=== PATIENT | female | born 1980 | race African-American/Black ===

== ENCOUNTER 2016-08-20 12:19 | Emergency (ER) | payer OTHER, MEDICAID ==
[~2016-08-20] VITALS: Ht 162.6 cm; Wt 50.0 kg
[~2016-08-20 12:19] MED LIST: GABA-531 PO; INSU100C6 SQ; LEVO50TA8 PO; METF500T3 PO; METO-298 PO; PREG75CA PO
[2016-08-20] MEDS ORDERED: SODIUM CHLORIDE 0.9% 1,000 ML IV ONE (13:37)
[2016-08-20 14:19] LABS: BASOPHILS % 0.7 % (0.0-2.0); EOSINOPHILS % 7.6 % (0.0-5.0); HEMATOCRIT. 37.2 % (36.0-48.0); HEMOGLOBIN. 12.2 g/dL (12.0-16.0); LYMPHOCYTES % 40.2 % (20.0-50.0); MEAN CORPUSCULAR HEMOGLOBIN 29.5 pg (28.0-32.0); MEAN CORPUSCULAR HGB CONC 32.9 g/dL (31.0-37.0); MEAN CORPUSCULAR VOLUME 89.7 fL (81.0-99.0); MEAN PLATELET VOLUME 9.6 fl (7.4-10.4); MONOCYTES % 8.7 % (2.0-8.0); NEUTROPHILS % 42.8 % (40.0-76.0); PLATELET 295 x1000/uL (130-400); RED BLOOD CELL COUNT 4.15 mill/uL (4.2-5.4); RED CELL DISTRIBUTION WIDTH 15.3 % (11.6-14.6); WHITE BLOOD COUNT 5.8 x1000/uL (4.5-11.0)
[2016-08-20 14:26] LABS: PROTHROMBIN TIME 10.7 sec
[2016-08-20 14:29] LABS: CHLORIDE 101 mEq/L (98-107); INDEX HEMOLYSI 1 (1-3); INDEX ICTERIC 1 (1-4); INDEX LIPEMIC 1 (1-3)
[2016-08-20 14:36] LABS: ALANINE AMINOTRANSFERASE 14 IU/L (13-61); ALBUMIN 3.2 g/dL (3.4-5.0); ANION GAP 13; CALCIUM 9.3 mg/dL (8.5-10.1); CARBON DIOXIDE 30 mEq/L (21-32); LIPASE 148 IU/L (73-393); UREA NITROGEN BLOOD 7 mg/dL (7-21); eGFR > 60 mL/min (>60)
[2016-08-20 14:54] LABS: CLARITY URINE CLOUDY (CLEAR); COLOR URINE YELLOW (YELLOW); GLUCOSE URINE 3+ (NEGATIVE); KETONES URINE TRACE (NEGATIVE); LEUKOCYTE ESTERASE URINE NEGATIVE (NEGATIVE); NITRITE URINE NEGATIVE (NEGATIVE); OCCULT BLOOD URINE NEGATIVE (NEGATIVE); PROTEIN URINE NEGATIVE (NEGATIVE); SPECIFIC GRAVITY URINE 1.034 (1.005-1.030); UROBILINOGEN URINE 0.2 E.U./dL (0.2-1.0)
[2016-08-20 15:10] LABS: BACTERIA URINE NONE SEEN; CALCIUM OXALATE CRYSTALS URINE 2+ /lpf; MUCUS URINE 1+ /lpf (< = 2+); RBC URINE 0-2 /hpf (0-2); SQUAMOUS EPITHELIAL CELL URINE FEW /lpf (RARE/1+); WBC URINE 0-2 /hpf (0-2)
[2016-08-20 15:13] VITALS: BP 122/89
[2016-08-20 15:19] LABS: *AMPHETAMINES SCREEN URINE NEGATIVE (NEGATIVE); *BARBITURATES SCREEN URINE NEGATIVE (NEGATIVE); *BENZODIAZEPINES SCREEN URINE NEGATIVE (NEGATIVE); *COCAINE SCREEN URINE NEGATIVE (NEGATIVE); CANNABINOID URINE SCREEN NEGATIVE (NEGATIVE); ECSTASY MDMA SCREEN URINE NEGATIVE (NEGATIVE); METHADONE URINE SCREEN NEGATIVE (NEGATIVE); OPIATES URINE SCREEN NEGATIVE (NEGATIVE); PHENCYCLIDINE URINE SCREEN NEGATIVE (NEGATIVE)
[2016-08-20] MEDS ORDERED: GABAPENTIN 300MG CAPSULE PO ONE (15:30)
[2016-08-20] MEDS ORDERED: KETOROLAC 30MG/ML VIAL IV ONE (15:30)
== END 2016-08-20 17:19 | disposition home or self-care (01) ==
LOC: ER 12:25
DX: E11.40 Type 2 diabetes mellitus with diabetic neuropathy, unspecified (principal); F31.9 Bipolar disorder, unspecified; E11.9 Type 2 diabetes mellitus without complications; E03.9 Hypothyroidism, unspecified; F17.210 Nicotine dependence, cigarettes, uncomplicated; Z88.5 Allergy status to narcotic agent; Z91.013 Allergy to seafood; Z79.82 Long term (current) use of aspirin; Z79.4 Long term (current) use of insulin; Z79.899 Other long term (current) drug therapy
CPT/HCPCS: 36415; 80053; 80305; 81001; 81025; 83690; 85025; 85610; 93005; 93970; 96361; 96374; 99285; J1885; J7030

== ENCOUNTER 2016-09-22 12:30 | Inpatient (IN) | payer OTHER, MEDICAID ==
[2016-09-22] VITALS (34 sets, daily range): BP systolic 97–125; BP diastolic 67–91
[~2016-09-22] VITALS: Ht 170.2 cm; Wt 49.4 kg
[2016-09-22] MEDS ORDERED: SODIUM CHLORIDE 0.9% 1,000 ML IV ONE ×3 (12:46→13:05)
[2016-09-22] MEDS ORDERED: INSULIN REGULAR (HUMULIN R) 300UNITS/3ML SUBCUT ONE (13:00)
[2016-09-22 13:09] LABS: EOSINOPHILS % 0.2 % (0.0-5.0); HEMATOCRIT. 44.1 % (36.0-48.0); HEMOGLOBIN. 14.2 g/dL (12.0-16.0); LYMPHOCYTES % 18.2 % (20.0-50.0); MEAN CORPUSCULAR HEMOGLOBIN 30.5 pg (28.0-32.0); MEAN CORPUSCULAR VOLUME 94.9 fL (81.0-99.0); MEAN PLATELET VOLUME 9.6 fl (7.4-10.4); MONOCYTES % 7.3 % (2.0-8.0); NEUTROPHILS % 73.3 % (40.0-76.0); PLATELET 414 x1000/uL (130-400); RED BLOOD CELL COUNT 4.65 mill/uL (4.2-5.4); RED CELL DISTRIBUTION WIDTH 15.2 % (11.6-14.6)
[2016-09-22 13:12] LABS: BG BASE EXCESS -9.9 mmol/L (-2.0-2.0); BG CARBOXYHEMOGLOBIN 0.5 % (0.5-1.5); BG DEOXYHEMOGLOBIN 2.7 % (0.0-5.0); BG FRACTION INSPIRED OXYGEN 21; BG HCO3 ACT 14.6 mmol/L (22.0-26.0); BG METHEMOGLOBIN 0.4 % (0.0-1.5); BG OXYGEN SATURATION 97.3 % (92.0-98.5); BG OXYHEMOGLOBIN 96.4 % (94.0-97.0); BG PCO2 28.7 mmHg (35.0-45.0); BG PH 7.324 (7.350-7.450); BG PO2 99.4 mmHg (75.0-100.0); BG SAMPLE SITE RIGHT BRACHIAL; BG TOTAL HEMOGLOBIN 13.6 g/dL (12.0-18.0); BG VENT MODE ROOM AIR
[2016-09-22 13:21] LABS: HCG SCREEN NEGATIVE
[2016-09-22 13:27] LABS: CARBON DIOXIDE 18 mEq/L (21-32); CHLORIDE 88 mEq/L (98-107); TROPONIN I < 0.02 ng/mL (0.00-0.04)
[2016-09-22 13:31] LABS: BETA HYDROXYBUTYRATE 6.9 mMol/L (0.0-0.3)
[2016-09-22] MEDS ORDERED: SODIUM CHLORIDE 0.9% 1,000 ML IV STA (13:44)
[2016-09-22 13:57] LABS: CLARITY URINE CLEAR (CLEAR); COLOR URINE YELLOW (YELLOW); GLUCOSE URINE 3+ (NEGATIVE); KETONES URINE 3+ (NEGATIVE); LEUKOCYTE ESTERASE URINE NEGATIVE (NEGATIVE); NITRITE URINE NEGATIVE (NEGATIVE); OCCULT BLOOD URINE NEGATIVE (NEGATIVE); PROTEIN URINE NEGATIVE (NEGATIVE); SPECIFIC GRAVITY URINE 1.034 (1.005-1.030); UROBILINOGEN URINE 0.2 E.U./dL (0.2-1.0)
[2016-09-22 14:04] LABS: CHLORIDE 96 mEq/L (98-107)
[2016-09-22 14:11] LABS: CARBON DIOXIDE 19 mEq/L (21-32)
[2016-09-22] MEDS ORDERED: TRAMADOL 50MG TABLET PO PRN (14:15)
[2016-09-22] MEDS ORDERED: NA PHOS,M-B/NA PHOS,DI-BA ENEMA 118ML PR PRN (14:15)
[2016-09-22] MEDS ORDERED: LORAZEPAM 2MG/ML CPJ IV PRN (14:15)
[2016-09-22] MEDS ORDERED: CLONIDINE 0.1MG TABLET PO PRN (14:15)
[2016-09-22] MEDS ORDERED: INSULIN REGULAR (DRIP) 100 UNITS in SODIUM CHLORIDE 0.9% 99 ML IV NR (14:15)
[2016-09-22] MEDS ORDERED: GUAIFENESIN 200MG/10ML SUGAR FREE UDC PO PRN (14:15)
[2016-09-22] MEDS ORDERED: IPRATROPIUM/ALBUTEROL 0.5-3(2.5)MG/3ML NEB INH PRN (14:15)
[2016-09-22] MEDS ORDERED: MAGNESIUM/ALUMINUM HYDROXIDE/SIMETHICONE 30ML UDC PO PRN (14:15)
[2016-09-22] MEDS ORDERED: NITROGLYCERIN 0.4MG TABLET SL SL PRN (14:15)
[2016-09-22] MEDS ORDERED: ONDANSETRON HCL 4MG/2ML VIAL IV PRN (14:15)
[2016-09-22] MEDS ORDERED: ACETAMINOPHEN 325MG TABLET PO PRN (14:15)
[2016-09-22] MEDS ORDERED: DOCUSATE SODIUM 100MG CAPSULE PO PRN (14:15)
[2016-09-22] MEDS ORDERED: KETOROLAC 15MG/ML VIAL IV PRN (14:15)
[2016-09-22] MEDS ORDERED: DIPHENHYDRAMINE 50MG/ML VIAL IV PRN (14:15)
[2016-09-22] MEDS ORDERED: INSULIN REGULAR (HUMULIN R) 300UNITS/3ML IV ONE (14:30)
[2016-09-22] MEDS ORDERED: DEXTROSE 50% WATER 50ML SYRINGE IV PRN ×2 (14:45)
[2016-09-22 14:55] LABS: PHOSPHORUS 2.6 mg/dL (2.5-4.9)
[2016-09-22] MEDS ORDERED: SODIUM CHLORIDE 0.9% 1,000 ML IV SCH (16:00)
[2016-09-22] MEDS ORDERED: INSULIN REGULAR (DRIP) 100 UNITS in SODIUM CHLORIDE 0.9% 100 ML IV SCH (16:00)
[2016-09-22] MEDS: BLOOD SUGAR DIAGNOSTIC STRIP TEST SCH ×9 (16:07→23:45)
[2016-09-22] MEDS: ENOXAPARIN 40MG/0.4ML SYR SUBCUT SCH (16:27)
[2016-09-22 16:52] LABS: CARBON DIOXIDE 21 mEq/L (21-32); CHLORIDE 102 mEq/L (98-107); PHOSPHORUS 1.9 mg/dL (2.5-4.9)
[2016-09-22] MEDS ORDERED: CEFTRIAXONE 1 G PREMIX 50 ML IV SCH (17:00)
[2016-09-22 18:49] LABS: CARBON DIOXIDE 23 mEq/L (21-32); CHLORIDE 106 mEq/L (98-107); PHOSPHORUS 1.5 mg/dL (2.5-4.9)
[2016-09-22] MEDS ORDERED: ZOLPIDEM TARTRATE 5MG TABLET PO PRN (21:00)
[2016-09-22] MEDS: GABAPENTIN 300MG CAPSULE PO SCH (21:06)
[2016-09-22] MEDS: METOPROLOL TARTRATE 25MG TABLET PO SCH (22:38)
[2016-09-22] MEDS: DEXT 5%/0.9% NACL KCL 20MEQ/L 1,000 ML IV SCH (22:39)
[2016-09-22] MEDS ORDERED: POTASSIUM CHLORIDE INJ 20 MEQ in DEXT 5%/0.9% NACL 1,000 ML IV SCH (23:00)
[2016-09-23] VITALS (32 sets, daily range): BP systolic 98–131; BP diastolic 70–101
[2016-09-23] MEDS: BLOOD SUGAR DIAGNOSTIC STRIP TEST SCH ×11 (00:58→17:45)
[2016-09-23] MEDS: GABAPENTIN 300MG CAPSULE PO SCH ×2 (05:48→13:00)
[2016-09-23] MEDS: DEXT 5%/0.9% NACL KCL 20MEQ/L 1,000 ML IV SCH (05:48)
[2016-09-23 05:56] LABS: BASOPHILS % 0.6 % (0.0-2.0); EOSINOPHILS % 3.3 % (0.0-5.0); HEMATOCRIT. 34.8 % (36.0-48.0); HEMOGLOBIN. 11.7 g/dL (12.0-16.0); LYMPHOCYTES % 29.7 % (20.0-50.0); MEAN CORPUSCULAR HEMOGLOBIN 30.1 pg (28.0-32.0); MEAN CORPUSCULAR VOLUME 90.1 fL (81.0-99.0); MEAN PLATELET VOLUME 8.5 fl (7.4-10.4); MONOCYTES % 11.4 % (2.0-8.0); PLATELET 333 x1000/uL (130-400); RED BLOOD CELL COUNT 3.87 mill/uL (4.2-5.4)
[2016-09-23 06:41] LABS: CARBON DIOXIDE 25 mEq/L (21-32); CHLORIDE 109 mEq/L (98-107); PHOSPHORUS 1.5 mg/dL (2.5-4.9)
[2016-09-23] MEDS: POTASSIUM PHOS,M-BASIC-D-BASIC 30 MMOL in SODIUM CHLORIDE 0.9% 500 ML IV NR ×2 (07:46→08:29)
[2016-09-23] MEDS ORDERED: LEVOTHYROXINE SODIUM 50MCG TABLET PO SCH (07:50)
[2016-09-23] MEDS: METOPROLOL TARTRATE 25MG TABLET PO SCH (08:02)
[2016-09-23] MEDS ORDERED: PANTOPRAZOLE SODIUM 40 MG/VIAL IV SCH (09:00)
[2016-09-23] MEDS ORDERED: DEXTROSE 50% WATER 50ML SYRINGE IV PRN (09:30)
[2016-09-23] MEDS ORDERED: INSULIN DETEMIR UD 100 UNITS/ML SYR SUBCUT SCH (10:00)
[2016-09-23] MEDS: INSULIN LISPRO 100 UNITS/ML SUBCUT SCH ×5 (10:36→17:51)
[2016-09-23 11:34] LABS: *AMPHETAMINES SCREEN URINE NEGATIVE (NEGATIVE); *BARBITURATES SCREEN URINE NEGATIVE (NEGATIVE); *BENZODIAZEPINES SCREEN URINE NEGATIVE (NEGATIVE); *COCAINE SCREEN URINE NEGATIVE (NEGATIVE); CANNABINOID URINE SCREEN NEGATIVE (NEGATIVE); METHADONE URINE SCREEN NEGATIVE (NEGATIVE); OPIATES URINE SCREEN NEGATIVE (NEGATIVE); PHENCYCLIDINE URINE SCREEN NEGATIVE (NEGATIVE)
[2016-09-23] MEDS: ENOXAPARIN 40MG/0.4ML SYR SUBCUT SCH (16:15)
[2016-09-23] MEDS ORDERED: CEFTRIAXONE 1 G PREMIX 50 ML IV SCH (17:00)
== END 2016-09-23 19:00 | disposition short-term general hospital (02) | DRG 638 ==
LOC: ER 12:37 → CVICU 14:08 → UNDOADMIN 14:08 → SUPCPDRO 14:55
PROVIDERS: ADMIT Internal Medicine; ATTEND Internal Medicine
DX: E13.10 Other specified diabetes mellitus with ketoacidosis without coma (principal); E87.1 Hypo-osmolality and hyponatremia; N39.0 Urinary tract infection, site not specified; E03.9 Hypothyroidism, unspecified; E83.39 Other disorders of phosphorus metabolism; E87.5 Hyperkalemia; E13.42 Other specified diabetes mellitus with diabetic polyneuropathy; F31.9 Bipolar disorder, unspecified; I10 Essential (primary) hypertension; Z79.4 Long term (current) use of insulin; Z82.49 Family history of ischemic heart disease and other diseases of the circulatory system; Z91.11 Patient's noncompliance with dietary regimen; Z91.14 Patient's other noncompliance with medication regimen; Z88.5 Allergy status to narcotic agent; Z91.013 Allergy to seafood; Z79.899 Other long term (current) drug therapy
CPT/HCPCS: 36415; 36600; 71010; 80048; 80053; 80305; 81001; 82010; 82375; 82805; 82962; 83036; 83735; 84100; 84443; 84484; 84703; 85025; 93005; 96372; 99291; C9113; J0696; J1650; J1815; J2060; J3480; J3490; J7030; J7040; J7042; J7050

== ENCOUNTER 2016-10-15 19:57 | Emergency (ER) | payer OTHER, MEDICAID ==
[~2016-10-15] VITALS: Ht 170.2 cm; Wt 56.0 kg
[2016-10-15] MEDS ORDERED: SODIUM CHLORIDE 0.9% 1,000 ML IV ONE (22:21)
[2016-10-15] MEDS ORDERED: KETOROLAC 30MG/ML VIAL IV STA (22:21)
[2016-10-15 22:48] LABS: EOSINOPHILS % 4.5 % (0.0-5.0); HEMATOCRIT. 36.3 % (36.0-48.0); HEMOGLOBIN. 11.9 g/dL (12.0-16.0); LYMPHOCYTES % 42.5 % (20.0-50.0); MEAN CORPUSCULAR HEMOGLOBIN 29.7 pg (28.0-32.0); MEAN CORPUSCULAR VOLUME 90.5 fL (81.0-99.0); MEAN PLATELET VOLUME 8.9 fl (7.4-10.4); MONOCYTES % 9.3 % (2.0-8.0); NEUTROPHILS % 42.7 % (40.0-76.0); PLATELET 350 x1000/uL (130-400); RED BLOOD CELL COUNT 4.01 mill/uL (4.2-5.4); RED CELL DISTRIBUTION WIDTH 15.5 % (11.6-14.6)
[2016-10-15 22:54] LABS: CHLORIDE 100 mEq/L (98-107); PROTHROMBIN TIME 10.4 sec
[2016-10-15 23:02] LABS: CARBON DIOXIDE 31 mEq/L (21-32); TROPONIN I < 0.02 ng/mL (0.00-0.04)
[2016-10-16 00:09] LABS: CLARITY URINE CLEAR (CLEAR); COLOR URINE YELLOW (YELLOW); GLUCOSE URINE 3+ (NEGATIVE); KETONES URINE TRACE (NEGATIVE); LEUKOCYTE ESTERASE URINE NEGATIVE (NEGATIVE); NITRITE URINE NEGATIVE (NEGATIVE); OCCULT BLOOD URINE NEGATIVE (NEGATIVE); PROTEIN URINE NEGATIVE (NEGATIVE); SPECIFIC GRAVITY URINE 1.034 (1.005-1.030)
[2016-10-16 02:00] VITALS: BP 115/73
== END 2016-10-16 02:14 | disposition home or self-care (01) ==
LOC: ER 20:17
DX: R07.89 Other chest pain (principal); E11.65 Type 2 diabetes mellitus with hyperglycemia; F32.9 Major depressive disorder, single episode, unspecified; E03.9 Hypothyroidism, unspecified; F17.200 Nicotine dependence, unspecified, uncomplicated; Z88.5 Allergy status to narcotic agent; Z91.013 Allergy to seafood
CPT/HCPCS: 36415; 71010; 80053; 81001; 81025; 84484; 85025; 85610; 93005; 96361; 96374; 99285; J1885; J7030; 81003

== ENCOUNTER 2017-01-08 10:25 | Inpatient (IN) | payer OTHER, MEDICAID ==
[2017-01-08] VITALS (16 sets, daily range): BP systolic 82–135; BP diastolic 53–82
[~2017-01-08] VITALS: Ht 170.2 cm; Wt 52.2 kg
[2017-01-08 11:54] LABS: BASOPHILS % 0.8 % (0.0-2.0); HEMATOCRIT. 44.2 % (36.0-48.0); LYMPHOCYTES % 27.7 % (20.0-50.0); MEAN CORPUSCULAR HEMOGLOBIN 29.2 pg (28.0-32.0); MEAN PLATELET VOLUME 10.5 fl (7.4-10.4); MONOCYTES % 5.7 % (2.0-8.0); NEUTROPHILS % 64.8 % (40.0-76.0); PLATELET 324 x1000/uL (130-400); RED CELL DISTRIBUTION WIDTH 16.4 % (11.6-14.6)
[2017-01-08 12:00] LABS: CHLORIDE 97 mEq/L (98-107)
[2017-01-08 12:05] LABS: CARBON DIOXIDE 14 mEq/L (21-32)
[2017-01-08 12:16] LABS: CLARITY URINE CLEAR (CLEAR); COLOR URINE YELLOW (YELLOW); GLUCOSE URINE 3+ (NEGATIVE); KETONES URINE 4+ (NEGATIVE); LEUKOCYTE ESTERASE URINE NEGATIVE (NEGATIVE); NITRITE URINE NEGATIVE (NEGATIVE); OCCULT BLOOD URINE NEGATIVE (NEGATIVE); PH URINE 5.5 (4.5-8.0); PROTEIN URINE 1+ (NEGATIVE); SPECIFIC GRAVITY URINE 1.029 (1.005-1.030); UROBILINOGEN URINE 0.2 E.U./dL (0.2-1.0)
[2017-01-08] MEDS ORDERED: ASPIRIN 81MG TABLET PO STA (13:01)
[2017-01-08] MEDS ORDERED: SODIUM CHLORIDE 0.9% 1,000 ML IV ONE ×2 (13:01)
[2017-01-08] MEDS ORDERED: NITROGLYCERIN 0.4MG TABLET SL SL PRN (13:15)
[2017-01-08] MEDS ORDERED: INSULIN REGULAR (HUMULIN R) UD 100 UNITS/ML SYR SUBCUT ONE (13:15)
[2017-01-08] MEDS ORDERED: INSULIN REGULAR (HUMULIN R) 300UNITS/3ML SUBCUT SCH (14:11)
[2017-01-08 15:03] LABS: HCG SCREEN NEGATIVE
[2017-01-08 15:06] LABS: D-DIMER < 0.19 mg/L FEU (<0.50); PARTIAL THROMBOPLASTIN TIME 25.7 sec (23.4-31.0); PROTHROMBIN TIME 10.2 sec (9.4-11.6)
[2017-01-08 15:11] LABS: CARBON DIOXIDE 14 mEq/L (21-32); CHLORIDE 99 mEq/L (98-107); TROPONIN I < 0.02 ng/mL (0.00-0.04)
[2017-01-08 15:12] LABS: BETA HYDROXYBUTYRATE 8.4 mMol/L (0.0-0.3)
[2017-01-08 15:13] LABS: *AMPHETAMINES SCREEN URINE NEGATIVE (NEGATIVE); *BARBITURATES SCREEN URINE NEGATIVE (NEGATIVE); *BENZODIAZEPINES SCREEN URINE NEGATIVE (NEGATIVE); *COCAINE SCREEN URINE NEGATIVE (NEGATIVE); CANNABINOID URINE SCREEN NEGATIVE (NEGATIVE); METHADONE URINE SCREEN NEGATIVE (NEGATIVE); OPIATES URINE SCREEN NEGATIVE (NEGATIVE); PHENCYCLIDINE URINE SCREEN NEGATIVE (NEGATIVE)
[2017-01-08] MEDS ORDERED: PIPERACILLIN/TAZ 3.375G PREMIX 50 ML IV ONE (15:30)
[2017-01-08] MEDS ORDERED: INSULIN REGULAR (HUMULIN R) UD 100 UNITS/ML SYR IV ONE (15:30)
[2017-01-08] MEDS ORDERED: FLUCONAZOLE 100MG TABLET PO ONE (15:30)
[2017-01-08] MEDS ORDERED: INSULIN REGULAR (DRIP) 100 UNITS in SODIUM CHLORIDE 0.9% 100 ML IV ONE (15:30)
[2017-01-08] MEDS ORDERED: HYDROMORPHONE HCL/PF 2MG/ML CPJ IV PRN (15:45)
[2017-01-08] MEDS ORDERED: CLONIDINE 0.1MG TABLET PO PRN (15:45)
[2017-01-08] MEDS ORDERED: ACETAMINOPHEN 325MG TABLET PO PRN (15:45)
[2017-01-08] MEDS ORDERED: ONDANSETRON HCL 4MG/2ML VIAL IV PRN (15:45)
[2017-01-08] MEDS ORDERED: DIPHENHYDRAMINE 50MG/ML VIAL IV PRN (15:45)
[2017-01-08] MEDS ORDERED: INSULIN REGULAR (DRIP) 100 UNITS in SODIUM CHLORIDE 0.9% 100 ML IV SCH ×2 (15:45→17:11)
[2017-01-08] MEDS ORDERED: INSULIN REGULAR (DRIP) 100 UNITS in SODIUM CHLORIDE 0.9% 99 ML IV PRN (15:45)
[2017-01-08] MEDS ORDERED: FLUCONAZOLE 150MG TABLET PO NR (16:00)
[2017-01-08] MEDS: BLOOD SUGAR DIAGNOSTIC STRIP TEST SCH ×7 (17:15→23:22)
[2017-01-08] MEDS ORDERED: SODIUM CHLORIDE 0.9% 1,000 ML IV SCH (17:15)
[2017-01-08] MEDS ORDERED: DEXTROSE 50% WATER 50ML SYRINGE IV PRN ×2 (17:15)
[2017-01-08] MEDS ORDERED: LEVO75TA7 PO (17:24)
[2017-01-08] MEDS ORDERED: HUMALOG SQ (17:24)
[2017-01-08] MEDS ORDERED: LURA60TA PO (17:24)
[2017-01-08] MEDS ORDERED: NORT75CA PO (17:24)
[2017-01-08] MEDS ORDERED: METO50TA5 PO (17:24)
[2017-01-08] MEDS ORDERED: METF10002 PO (17:24)
[2017-01-08] MEDS ORDERED: IBUP-2030 PO (17:24)
[2017-01-08] MEDS ORDERED: IBUPROFEN 800MG TABLET PO PRN (17:30)
[2017-01-08] MEDS: DEXT 5%/0.45% NACL 1000ML 1,000 ML IV SCH (18:18)
[2017-01-08] MEDS: METOPROLOL TARTRATE 50MG TABLET PO SCH (18:20)
[2017-01-08] MEDS ORDERED: LORAZEPAM 2MG/ML CPJ IV PRN (19:00)
[2017-01-08] MEDS ORDERED: LEVOFLOXACIN 500MG PREMIX 100 ML IV SCH (20:00)
[2017-01-08] MEDS: NORTRIPTYLINE HCL 25MG CAPSULE PO SCH (21:29)
[2017-01-08 22:11] LABS: CARBON DIOXIDE 24 mEq/L (21-32); CHLORIDE 108 mEq/L (98-107)
[2017-01-09] VITALS (43 sets, daily range): BP systolic 88–132; BP diastolic 62–95
[2017-01-09] MEDS: BLOOD SUGAR DIAGNOSTIC STRIP TEST SCH ×11 (00:28→20:43)
[2017-01-09] MEDS: DEXT 5%/0.45% NACL 1000ML 1,000 ML IV SCH ×2 (02:49→12:58)
[2017-01-09 05:54] LABS: BASOPHILS % 0.5 % (0.0-2.0); EOSINOPHILS % 3.3 % (0.0-5.0); HEMATOCRIT. 34.9 % (36.0-48.0); HEMOGLOBIN. 11.3 g/dL (12.0-16.0); MEAN CORPUSCULAR HEMOGLOBIN 28.9 pg (28.0-32.0); MEAN CORPUSCULAR VOLUME 88.6 fL (81.0-99.0); MEAN PLATELET VOLUME 9.7 fl (7.4-10.4); MONOCYTES % 9.3 % (2.0-8.0); NEUTROPHILS % 42.9 % (40.0-76.0); PLATELET 268 x1000/uL (130-400); RED BLOOD CELL COUNT 3.93 mill/uL (4.2-5.4)
[2017-01-09 06:30] LABS: CARBON DIOXIDE 23 mEq/L (21-32); CHLORIDE 107 mEq/L (98-107); T4 FREE 1.23 ng/dL (0.76-1.46)
[2017-01-09] MEDS: METOPROLOL TARTRATE 50MG TABLET PO SCH ×2 (08:46→21:08)
[2017-01-09] MEDS: LEVOTHYROXINE SODIUM 75MCG TABLET PO SCH (08:46)
[2017-01-09] MEDS ORDERED: LURASIDONE HCL 60 MG PO SCH (09:00)
[2017-01-09] MEDS ORDERED: INSULIN DETEMIR UD 100 UNITS/ML SYR SUBCUT SCH (11:00)
[2017-01-09] MEDS ORDERED: DEXTROSE 50% WATER 50ML SYRINGE IV PRN (12:15)
[2017-01-09] MEDS: INSULIN LISPRO 100 UNITS/ML SUBCUT SCH ×3 (12:56→21:09)
[2017-01-09] MEDS ORDERED: NORTRIPTYLINE HCL 75 MG PO SCH (17:00)
[2017-01-09] MEDS: NORTRIPTYLINE HCL 25MG CAPSULE PO SCH (21:08)
[2017-01-09] MEDS: LEVOFLOXACIN 500MG PREMIX 100 ML IV SCH (21:10)
[2017-01-10] VITALS (9 sets, daily range): BP systolic 97–127; BP diastolic 65–90
[2017-01-10] MEDS: BLOOD SUGAR DIAGNOSTIC STRIP TEST SCH ×4 (06:43→21:00)
[2017-01-10] MEDS: LEVOTHYROXINE SODIUM 75MCG TABLET PO SCH (06:43)
[2017-01-10] MEDS: INSULIN LISPRO 100 UNITS/ML SUBCUT SCH ×4 (06:54→22:06)
[2017-01-10] MEDS: METOPROLOL TARTRATE 50MG TABLET PO SCH ×2 (10:07→21:54)
[2017-01-10] MEDS ORDERED: NON FORMULARY PATIENT HOME MED EA SUBCUT SCH (13:30)
[2017-01-10] MEDS ORDERED: INSULIN DETEMIR UD 100 UNITS/ML SYR SUBCUT SCH (15:30)
[2017-01-10] MEDS: LEVOFLOXACIN 500MG PREMIX 100 ML IV SCH (20:00)
[2017-01-10] MEDS: NORTRIPTYLINE HCL 25MG CAPSULE PO SCH (21:53)
== END 2017-01-10 23:25 | disposition short-term general hospital (02) | DRG 638 ==
LOC: ER 10:25 → CVICU 15:23 → EDBEDREQ 15:26 → EDBEDREQSVC 15:28 → EDBEDREQTM 15:28 → EDBEDREQ 15:28 → ENRESERV 15:30 → 6EST 01-10 02:06
PROVIDERS: ADMIT Hospitalist; ATTEND Hospitalist
DX: E13.10 Other specified diabetes mellitus with ketoacidosis without coma (principal); N39.0 Urinary tract infection, site not specified; I10 Essential (primary) hypertension; B37.9 Candidiasis, unspecified; E03.9 Hypothyroidism, unspecified; F31.9 Bipolar disorder, unspecified; Z87.891 Personal history of nicotine dependence; Z88.6 Allergy status to analgesic agent; Z91.013 Allergy to seafood
CPT/HCPCS: 36415; 71010; 80048; 80053; 80305; 81001; 82010; 82962; 83690; 83880; 84439; 84443; 84484; 84703; 85025; 85379; 85610; 85730; 87086; 93005; 93970; 96361; 96365; 96372; 99291; J1815; J1956; J2543; J3490; J7030; J7050

== ENCOUNTER 2017-02-06 22:51 | Inpatient (IN) | payer OTHER, MEDICAID ==
[~2017-02-06] VITALS: Ht 165.1 cm; Wt 52.6 kg
[~2017-02-06 22:51] MED LIST changes: -GABA-531 PO; +HUMALOG SQ; +IBUP-2030 PO; -INSU100C6 SQ; -LEVO50TA8 PO; +LEVO75TA7 PO; +LURA60TA PO; +METF10002 PO; -METF500T3 PO; -METO-298 PO; +METO50TA5 PO; +NORT75CA PO; -PREG75CA PO
[2017-02-07] VITALS (19 sets, daily range): BP systolic 92–143; BP diastolic 56–86
[2017-02-07] MEDS ORDERED: SODIUM CHLORIDE 0.9% 1,000 ML IV ONE (06:22)
[2017-02-07 06:48] LABS: BASOPHILS % 0.5 % (0.0-2.0); EOSINOPHILS % 0.1 % (0.0-5.0); HEMOGLOBIN. 13.1 g/dL (12.0-16.0); LYMPHOCYTES % 15.4 % (20.0-50.0); MEAN CORPUSCULAR HEMOGLOBIN 29.3 pg (28.0-32.0); MEAN CORPUSCULAR VOLUME 98.8 fL (81.0-99.0); MEAN PLATELET VOLUME 10.9 fl (7.4-10.4); MONOCYTES % 7.4 % (2.0-8.0); NEUTROPHILS % 76.6 % (40.0-76.0); PLATELET 418 x1000/uL (130-400); RED BLOOD CELL COUNT 4.45 mill/uL (4.2-5.4); RED CELL DISTRIBUTION WIDTH 16.1 % (11.6-14.6)
[2017-02-07 07:06] LABS: CHLORIDE 86 mEq/L (98-107)
[2017-02-07 07:08] LABS: BG BASE EXCESS -20.2 mmol/L (-2.0-2.0); BG CARBOXYHEMOGLOBIN 0.1 % (0.5-1.5); BG DEOXYHEMOGLOBIN 2.1 % (0.0-5.0); BG FRACTION INSPIRED OXYGEN 21; BG HCO3 ACT 5.6 mmol/L (22.0-26.0); BG METHEMOGLOBIN 0.5 % (0.0-1.5); BG OXYGEN SATURATION 97.9 % (92.0-98.5); BG OXYHEMOGLOBIN 97.3 % (94.0-97.0); BG PH 7.191 (7.350-7.450); BG PO2 133.3 mmHg (75.0-100.0); BG SAMPLE SITE RIGHT BRACHIAL; BG TOTAL HEMOGLOBIN 12.8 g/dL (12.0-18.0); BG VENT MODE ROOM AIR
[2017-02-07 07:13] LABS: CARBON DIOXIDE 9 mEq/L (21-32)
[2017-02-07 07:27] LABS: BETA HYDROXYBUTYRATE 1.7 mMol/L (0.0-0.3)
[2017-02-07] MEDS ORDERED: INSULIN REGULAR (HUMULIN R) 300UNITS/3ML IV ONE (07:30)
[2017-02-07] MEDS ORDERED: INSULIN REGULAR (DRIP) 100 UNITS in SODIUM CHLORIDE 0.9% 99 ML IV SCH ×2 (07:30→08:30)
[2017-02-07 16:12] LABS: CARBON DIOXIDE 13 mEq/L (21-32); CHLORIDE 107 mEq/L (98-107)
[2017-02-07] MEDS ORDERED: MORPHINE SULFATE 2 MG/ML CPJ (NOT FOR IM USE) IV PRN (17:45)
[2017-02-07] MEDS ORDERED: ONDANSETRON HCL 4MG/2ML VIAL IV PRN (17:45)
[2017-02-07] MEDS: METOPROLOL TARTRATE 50MG TABLET PO SCH ×2 (17:45→22:17)
[2017-02-07] MEDS: PANTOPRAZOLE SODIUM 40 MG/VIAL IV SCH (17:45)
[2017-02-07] MEDS: SODIUM CHLORIDE 0.9% 1,000 ML IV SCH (17:45)
[2017-02-07] MEDS ORDERED: DEXTROSE 50% WATER 50ML SYRINGE IV PRN ×2 (17:45)
[2017-02-07] MEDS: BLOOD SUGAR DIAGNOSTIC STRIP TEST SCH ×7 (17:56→23:45)
[2017-02-07] MEDS ORDERED: NORTRIPTYLINE HCL 25MG CAPSULE PO SCH ×2 (18:00)
[2017-02-07] MEDS ORDERED: NON FORMULARY PATIENT HOME MED EA XX SCH ×2 (18:00)
[2017-02-07] MEDS ORDERED: INSULIN REGULAR (DRIP) 100 UNITS in SODIUM CHLORIDE 0.9% 100 ML IV SCH (18:30)
[2017-02-07] MEDS ORDERED: INFLUENZA VIRUS VACCINE 0.5ML SYR IM ONE (19:00)
[2017-02-07] MEDS: DEXT 5%/0.9% NACL 1,000 ML IV SCH (22:00)
[2017-02-08] VITALS (28 sets, daily range): BP systolic 85–120; BP diastolic 45–85
[2017-02-08] MEDS: BLOOD SUGAR DIAGNOSTIC STRIP TEST SCH ×13 (00:45→20:27)
[2017-02-08 01:51] LABS: CARBON DIOXIDE 21 mEq/L (21-32); CHLORIDE 111 mEq/L (98-107)
[2017-02-08] MEDS: SODIUM CHLORIDE 0.9% 1,000 ML IV SCH (03:45)
[2017-02-08 06:21] LABS: CHLORIDE 109 mEq/L (98-107)
[2017-02-08] MEDS: DEXT 5%/0.9% NACL 1,000 ML IV SCH (06:25)
[2017-02-08 06:27] LABS: CARBON DIOXIDE 21 mEq/L (21-32)
[2017-02-08 07:43] LABS: PHOSPHORUS 1.4 mg/dL (2.5-4.9)
[2017-02-08] MEDS: PANTOPRAZOLE SODIUM 40 MG/VIAL IV SCH (07:59)
[2017-02-08] MEDS: LEVOTHYROXINE SODIUM 75MCG TABLET PO SCH (08:00)
[2017-02-08] MEDS: METOPROLOL TARTRATE 50MG TABLET PO SCH ×2 (08:26→21:15)
[2017-02-08] MEDS ORDERED: DEXTROSE 50% WATER 50ML SYRINGE IV PRN (10:15)
[2017-02-08] MEDS: POTASSIUM-SODIUM PHOSPHATE POWDER PACKET PO SCH ×4 (11:03→21:15)
[2017-02-08] MEDS: INSULIN DETEMIR UD 100 UNITS/ML SYR SUBCUT SCH (11:04)
[2017-02-08] MEDS: INSULIN LISPRO 100 UNITS/ML SUBCUT SCH ×3 (13:10→21:20)
[2017-02-08] MEDS ORDERED: MAGNESIUM/ALUMINUM HYDROXIDE/SIMETHICONE 30ML UDC PO PRN (14:30)
[2017-02-08] MEDS: NORTRIPTYLINE HCL 25MG CAPSULE PO SCH (17:43)
[2017-02-09] VITALS (7 sets, daily range): BP systolic 108–126; BP diastolic 68–88
[2017-02-09] MEDS: BLOOD SUGAR DIAGNOSTIC STRIP TEST SCH ×3 (05:44→17:03)
[2017-02-09] MEDS: LEVOTHYROXINE SODIUM 75MCG TABLET PO SCH (05:58)
[2017-02-09] MEDS: INSULIN LISPRO 100 UNITS/ML SUBCUT SCH ×3 (06:04→17:03)
[2017-02-09 08:08] LABS: BASOPHILS % 0.3 % (0.0-2.0); EOSINOPHILS % 2.4 % (0.0-5.0); HEMATOCRIT. 34.5 % (36.0-48.0); HEMOGLOBIN. 11.4 g/dL (12.0-16.0); LYMPHOCYTES % 22.8 % (20.0-50.0); MEAN CORPUSCULAR HEMOGLOBIN 30.2 pg (28.0-32.0); MEAN CORPUSCULAR VOLUME 91.4 fL (81.0-99.0); MEAN PLATELET VOLUME 9.7 fl (7.4-10.4); MONOCYTES % 10.5 % (2.0-8.0); PLATELET 257 x1000/uL (130-400); RED BLOOD CELL COUNT 3.77 mill/uL (4.2-5.4); RED CELL DISTRIBUTION WIDTH 16.4 % (11.6-14.6)
[2017-02-09 09:14] LABS: CARBON DIOXIDE 22 mEq/L (21-32); CHLORIDE 103 mEq/L (98-107)
[2017-02-09] MEDS: PANTOPRAZOLE SODIUM 40 MG/VIAL IV SCH (09:14)
[2017-02-09] MEDS: METOPROLOL TARTRATE 50MG TABLET PO SCH (09:14)
[2017-02-09] MEDS: POTASSIUM-SODIUM PHOSPHATE POWDER PACKET PO SCH ×3 (09:14→17:00)
[2017-02-09] MEDS: INSULIN DETEMIR UD 100 UNITS/ML SYR SUBCUT SCH (09:15)
[2017-02-09] MEDS ORDERED: INSULIN DETEMIR UD 100 UNITS/ML SYR SUBCUT SCH (11:00)
[2017-02-09] MEDS ORDERED: INSULIN DETEMIR UD 100 UNITS/ML SYR SUBCUT NR (12:00)
[2017-02-09] MEDS: NORTRIPTYLINE HCL 25MG CAPSULE PO SCH (17:01)
[2017-02-10] MEDS ORDERED: FAMOTIDINE 20MG TABLET PO SCH (09:00)
[2017-02-10] MEDS ORDERED: INSULIN DETEMIR UD 100 UNITS/ML SYR SUBCUT SCH (10:00)
== END 2017-02-09 20:40 | disposition short-term general hospital (02) | DRG 638 ==
LOC: ER 22:55 → CVICU 02-07 07:44 → EDBEDREQ 02-07 07:46 → ENRESERV 02-07 15:23 → CANBEDREQ 02-07 16:26 → 8WST 02-08 16:28
PROVIDERS: ADMIT Hospitalist; ATTEND Hospitalist
DX: E11.10 Type 2 diabetes mellitus with ketoacidosis without coma (principal); E87.1 Hypo-osmolality and hyponatremia; E87.5 Hyperkalemia; D72.829 Elevated white blood cell count, unspecified; E03.9 Hypothyroidism, unspecified; F17.200 Nicotine dependence, unspecified, uncomplicated; F31.9 Bipolar disorder, unspecified; Z79.84 Long term (current) use of oral hypoglycemic drugs; Z79.899 Other long term (current) drug therapy; Z88.5 Allergy status to narcotic agent; Z91.013 Allergy to seafood
CPT/HCPCS: 36415; 36600; 71010; 80048; 80053; 82010; 82375; 82805; 82962; 83690; 83735; 84100; 85025; 87086; 93005; 96361; 96365; 96376; 99291; C9113; J1815; J2405; J7030; J7042; J7050

== ENCOUNTER 2017-02-12 12:24 | Inpatient (IN) | payer OTHER, MEDICAID ==
[2017-02-12] VITALS (14 sets, daily range): BP systolic 92–121; BP diastolic 30–69
[~2017-02-12] VITALS: Ht 170.2 cm; Wt 57.9 kg
[2017-02-12] MEDS ORDERED: SODIUM CHLORIDE 0.9% 1000ML BAG (SEPSIS BOLUS) IV ONE (12:30)
[2017-02-12] MEDS ORDERED: SODIUM CHLORIDE 0.9% 1,000 ML IV ONE (12:59)
[2017-02-12 13:09] LABS: BG BASE EXCESS -11.1 mmol/L (-2.0-2.0); BG CARBOXYHEMOGLOBIN 1.2 % (0.5-1.5); BG DEOXYHEMOGLOBIN 3.1 % (0.0-5.0); BG HCO3 ACT 13.9 mmol/L (22.0-26.0); BG METHEMOGLOBIN 0.4 % (0.0-1.5); BG OXYGEN SATURATION 96.8 % (92.0-98.5); BG OXYHEMOGLOBIN 95.3 % (94.0-97.0); BG PCO2 28.5 mmHg (35.0-45.0); BG PH 7.305 (7.350-7.450); BG PO2 93.5 mmHg (75.0-100.0); BG SAMPLE SITE RIGHT RADIAL; BG TOTAL HEMOGLOBIN 11.9 g/dL (12.0-18.0); BG VENT MODE ROOM AIR
[2017-02-12] MEDS ORDERED: INSULIN REGULAR (DRIP) 100 UNITS in SODIUM CHLORIDE 0.9% 100 ML IV ONE ×4 (13:30)
[2017-02-12 13:57] LABS: BASOPHILS % 0.5 % (0.0-2.0); EOSINOPHILS % 0.9 % (0.0-5.0); HEMATOCRIT. 34.2 % (36.0-48.0); HEMOGLOBIN. 10.7 g/dL (12.0-16.0); LYMPHOCYTES % 18.9 % (20.0-50.0); MEAN CORPUSCULAR HEMOGLOBIN 29.8 pg (28.0-32.0); MEAN CORPUSCULAR VOLUME 94.9 fL (81.0-99.0); MEAN PLATELET VOLUME 10.3 fl (7.4-10.4); MONOCYTES % 7.6 % (2.0-8.0); NEUTROPHILS % 72.1 % (40.0-76.0); PLATELET 275 x1000/uL (130-400); PROTHROMBIN TIME 10.1 sec (9.4-11.6); RED BLOOD CELL COUNT 3.61 mill/uL (4.2-5.4); RED CELL DISTRIBUTION WIDTH 16.5 % (11.6-14.6)
[2017-02-12 14:02] LABS: CARBON DIOXIDE 16 mEq/L (21-32); CHLORIDE 96 mEq/L (98-107)
[2017-02-12 14:07] LABS: PHOSPHORUS 3.7 mg/dL (2.5-4.9)
[2017-02-12 14:10] LABS: HCG SCREEN NEGATIVE; TROPONIN I < 0.02 ng/mL (0.00-0.04)
[2017-02-12 14:18] LABS: BETA HYDROXYBUTYRATE 8.7 mMol/L (0.0-0.3)
[2017-02-12 14:42] LABS: CLARITY URINE CLEAR (CLEAR); COLOR URINE YELLOW (YELLOW); GLUCOSE URINE 3+ (NEGATIVE); KETONES URINE 4+ (NEGATIVE); LEUKOCYTE ESTERASE URINE NEGATIVE (NEGATIVE); NITRITE URINE NEGATIVE (NEGATIVE); OCCULT BLOOD URINE NEGATIVE (NEGATIVE); PROTEIN URINE NEGATIVE (NEGATIVE); SPECIFIC GRAVITY URINE 1.029 (1.005-1.030); UROBILINOGEN URINE 0.2 E.U./dL (0.2-1.0)
[2017-02-12] MEDS ORDERED: DIPHENHYDRAMINE 50MG/ML VIAL IV PRN (14:45)
[2017-02-12] MEDS ORDERED: INSULIN REGULAR (DRIP) 100 UNITS in SODIUM CHLORIDE 0.9% 100 ML IV SCH ×4 (14:45)
[2017-02-12] MEDS ORDERED: ACETAMINOPHEN 325MG TABLET PO PRN (14:45)
[2017-02-12] MEDS ORDERED: DEXT 5%/0.45% NACL KCL 20MEQ/L 1,000 ML IV SCH (14:45)
[2017-02-12] MEDS ORDERED: DEXTROSE 50% WATER 50ML SYRINGE IV PRN ×2 (14:45)
[2017-02-12] MEDS ORDERED: HYDROCODONE/ACETAMINOPHEN 10/325MG TABLET PO PRN (14:45)
[2017-02-12] MEDS ORDERED: IPRATROPIUM/ALBUTEROL 0.5-3(2.5)MG/3ML NEB INH PRN (14:45)
[2017-02-12] MEDS ORDERED: HYDROCODONE/ACETAMINOPHEN 5/325MG TABLET PO PRN (14:45)
[2017-02-12] MEDS ORDERED: CLONIDINE 0.1MG TABLET PO PRN (14:45)
[2017-02-12 14:56] LABS: *AMPHETAMINES SCREEN URINE NEGATIVE (NEGATIVE); *BARBITURATES SCREEN URINE NEGATIVE (NEGATIVE); *BENZODIAZEPINES SCREEN URINE NEGATIVE (NEGATIVE); *COCAINE SCREEN URINE NEGATIVE (NEGATIVE); CANNABINOID URINE SCREEN NEGATIVE (NEGATIVE); METHADONE URINE SCREEN NEGATIVE (NEGATIVE); OPIATES URINE SCREEN NEGATIVE (NEGATIVE); PHENCYCLIDINE URINE SCREEN NEGATIVE (NEGATIVE)
[2017-02-12] MEDS: DEXT 5%/0.45% NACL 1000ML 1,000 ML IV SCH (16:25)
[2017-02-12] MEDS: BLOOD SUGAR DIAGNOSTIC STRIP TEST SCH ×9 (16:27→23:45)
[2017-02-12] MEDS ORDERED: IBUPROFEN 800MG TABLET PO PRN (16:45)
[2017-02-12] MEDS ORDERED: NORTRIPTYLINE HCL 25MG CAPSULE PO SCH (21:00)
[2017-02-12] MEDS: METOPROLOL TARTRATE 50MG TABLET PO SCH (21:44)
[2017-02-13] VITALS (18 sets, daily range): BP systolic 91–126; BP diastolic 66–90
[2017-02-13 00:29] LABS: CREATINE KINASE 22 IU/L (26-192); TROPONIN I < 0.02 ng/mL (0.00-0.04)
[2017-02-13] MEDS: DEXT 5%/0.45% NACL 1000ML 1,000 ML IV SCH (00:30)
[2017-02-13] MEDS: BLOOD SUGAR DIAGNOSTIC STRIP TEST SCH ×8 (00:45→07:53)
[2017-02-13 05:21] LABS: BASOPHILS % 0.5 % (0.0-2.0); EOSINOPHILS % 3.9 % (0.0-5.0); HEMATOCRIT. 30.2 % (36.0-48.0); LYMPHOCYTES % 41.8 % (20.0-50.0); MEAN CORPUSCULAR HEMOGLOBIN 30.2 pg (28.0-32.0); MEAN CORPUSCULAR VOLUME 90.8 fL (81.0-99.0); MEAN PLATELET VOLUME 9.4 fl (7.4-10.4); MONOCYTES % 9.5 % (2.0-8.0); NEUTROPHILS % 44.3 % (40.0-76.0); PLATELET 299 x1000/uL (130-400); RED BLOOD CELL COUNT 3.32 mill/uL (4.2-5.4); RED CELL DISTRIBUTION WIDTH 16.1 % (11.6-14.6)
[2017-02-13 06:12] LABS: CARBON DIOXIDE 26 mEq/L (21-32); CHLORIDE 107 mEq/L (98-107); CREATINE KINASE 20 IU/L (26-192); LDL CHOLESTEROL 42 mg/dL (5-100); TROPONIN I < 0.02 ng/mL (0.00-0.04)
[2017-02-13 06:13] LABS: HDL CHOLESTEROL 58 mg/dL (40-59)
[2017-02-13] MEDS ORDERED: LEVOTHYROXINE SODIUM 75MCG TABLET PO SCH (06:30)
[2017-02-13] MEDS ORDERED: DEXTROSE 50% WATER 50ML SYRINGE IV PRN ×2 (08:45)
[2017-02-13] MEDS ORDERED: LURASIDONE HCL 60 MG PO SCH (09:00)
[2017-02-13 09:49] LABS: BG BASE EXCESS -1.9 mmol/L (-2.0-2.0); BG CARBOXYHEMOGLOBIN 0.3 % (0.5-1.5); BG DEOXYHEMOGLOBIN 2.4 % (0.0-5.0); BG FRACTION INSPIRED OXYGEN 21; BG HCO3 ACT 22.9 mmol/L (22.0-26.0); BG METHEMOGLOBIN 0.3 % (0.0-1.5); BG OXYGEN SATURATION 97.6 % (92.0-98.5); BG PCO2 39.4 mmHg (35.0-45.0); BG PH 7.383 (7.350-7.450); BG PO2 100.7 mmHg (75.0-100.0); BG SAMPLE SITE LEFT BRACHIAL; BG TOTAL HEMOGLOBIN 10.7 g/dL (12.0-18.0); BG VENT MODE ROOM AIR
[2017-02-13] MEDS: METOPROLOL TARTRATE 50MG TABLET PO SCH (09:51)
[2017-02-13] MEDS ORDERED: INSULIN DETEMIR UD 100 UNITS/ML SYR SUBCUT SCH (10:30)
[2017-02-13] MEDS ORDERED: BLOOD SUGAR DIAGNOSTIC STRIP TEST SCH (11:30)
[2017-02-13] MEDS ORDERED: INSULIN LISPRO 100 UNITS/ML SUBCUT SCH ×2 (12:00)
== END 2017-02-13 14:55 | disposition home or self-care (01) | DRG 438 ==
LOC: ER 12:58 → MICUSO 13:28 → EDBEDREQ 13:31 → EDBEDREQTM 13:31 → ENRESERV 14:00
PROVIDERS: ADMIT Internal Medicine; ATTEND Internal Medicine
DX: K85.90 Acute pancreatitis without necrosis or infection, unspecified (principal); E10.10 Type 1 diabetes mellitus with ketoacidosis without coma; F17.210 Nicotine dependence, cigarettes, uncomplicated; F31.9 Bipolar disorder, unspecified; E03.9 Hypothyroidism, unspecified; Z79.4 Long term (current) use of insulin; Z88.5 Allergy status to narcotic agent; Z91.013 Allergy to seafood; Z79.899 Other long term (current) drug therapy; Z71.6 Tobacco abuse counseling
CPT/HCPCS: 36415; 36600; 71010; 80053; 80061; 80305; 81001; 82010; 82375; 82550; 82805; 82962; 83605; 83690; 83880; 84100; 84443; 84484; 84703; 85025; 85610; 86850; 86900; 87040; 87086; 93005; 96361; 96365; 96367; 96375; 99291; J1815; J3490; J7030; J7050

== ENCOUNTER 2017-04-11 13:41 | Emergency (ER) | payer OTHER, MEDICAID ==
[~2017-04-11] VITALS: Ht 177.8 cm; Wt 63.0 kg
[~2017-04-11 13:41] MED LIST changes: +METO-539 PO; -METO50TA5 PO
[2017-04-11] MEDS ORDERED: SODIUM CHLORIDE 0.9% 1,000 ML IV ONE ×2 (14:53→17:29)
[2017-04-11] MEDS ORDERED: ONDANSETRON HCL 4MG/2ML VIAL IV ONE (15:00)
[2017-04-11 15:23] LABS: BG BASE EXCESS -1.7 mmol/L (-2.0-2.0); BG CARBOXYHEMOGLOBIN 2.9 % (0.5-1.5); BG DEOXYHEMOGLOBIN 3.5 % (0.0-5.0); BG FRACTION INSPIRED OXYGEN 21; BG HCO3 ACT 23.4 mmol/L (22.0-26.0); BG METHEMOGLOBIN 0.3 % (0.0-1.5); BG OXYGEN SATURATION 96.4 % (92.0-98.5); BG OXYHEMOGLOBIN 93.3 % (94.0-97.0); BG PCO2 41.2 mmHg (35.0-45.0); BG PH 7.373 (7.350-7.450); BG PO2 87.1 mmHg (75.0-100.0); BG SAMPLE SITE RIGHT BRACHIAL; BG TOTAL HEMOGLOBIN 14.5 g/dL (12.0-18.0); BG VENT MODE ROOM AIR
[2017-04-11 15:34] LABS: BASOPHILS % 0.8 % (0.0-2.0); HEMATOCRIT. 42.7 % (36.0-48.0); HEMOGLOBIN. 13.8 g/dL (12.0-16.0); LYMPHOCYTES % 31.5 % (20.0-50.0); MEAN CORPUSCULAR HEMOGLOBIN 30.1 pg (28.0-32.0); MEAN CORPUSCULAR VOLUME 93.1 fL (81.0-99.0); MEAN PLATELET VOLUME 9.4 fl (7.4-10.4); MONOCYTES % 9.7 % (2.0-8.0); PLATELET 351 x1000/uL (130-400); RED BLOOD CELL COUNT 4.59 mill/uL (4.2-5.4)
[2017-04-11 15:38] LABS: CHLORIDE 93 mEq/L (98-107)
[2017-04-11 15:45] LABS: AMYLASE 19 IU/L (25-115); CARBON DIOXIDE 26 mEq/L (21-32)
[2017-04-11 15:47] LABS: BETA HYDROXYBUTYRATE 4.3 mMol/L (0.0-0.3)
[2017-04-11 15:48] LABS: HCG SCREEN NEGATIVE
[2017-04-11 15:49] LABS: TROPONIN I < 0.02 ng/mL (0.00-0.04)
[2017-04-11] MEDS ORDERED: INSULIN REGULAR (HUMULIN R) 300UNITS/3ML IV ONE (16:00)
[2017-04-11] MEDS ORDERED: INSULIN REGULAR (HUMULIN R) 300UNITS/3ML SUBCUT ONE (16:00)
[2017-04-11 20:16] VITALS: BP 99/63
== END 2017-04-11 20:22 | disposition home or self-care (01) ==
LOC: ER 13:41 → CANBEDREQ 16:18 → ER 20:22
DX: E11.65 Type 2 diabetes mellitus with hyperglycemia (principal); E86.0 Dehydration; E03.9 Hypothyroidism, unspecified; I10 Essential (primary) hypertension; F31.9 Bipolar disorder, unspecified; F17.200 Nicotine dependence, unspecified, uncomplicated; Z88.5 Allergy status to narcotic agent; Z91.013 Allergy to seafood; Z79.4 Long term (current) use of insulin
CPT/HCPCS: 36415; 36600; 71010; 80053; 82010; 82150; 82375; 82805; 82962; 83690; 84484; 84703; 85025; 93005; 96361; 96372; 96374; 96375; 99285; J1815; J2405; J7030

== ENCOUNTER 2017-07-08 20:37 | Emergency (ER) | payer OTHER, MEDICAID ==
[~2017-07-08] VITALS: Ht 170.2 cm; Wt 56.7 kg
[2017-07-08] MEDS ORDERED: ONDANSETRON HCL 4MG/2ML VIAL IV STA (21:20)
[2017-07-08] MEDS ORDERED: SODIUM CHLORIDE 0.9% 1,000 ML IV ONE (21:20)
[2017-07-08 21:53] LABS: BG BASE EXCESS -1.3 mmol/L (-2.0-2.0); BG CARBOXYHEMOGLOBIN 0.6 % (0.5-1.5); BG FRACTION INSPIRED OXYGEN 21; BG HCO3 ACT 23.4 mmol/L (22.0-26.0); BG METHEMOGLOBIN 0.3 % (0.0-1.5); BG OXYHEMOGLOBIN 95.1 % (94.0-97.0); BG PCO2 39.2 mmHg (35.0-45.0); BG PH 7.393 (7.350-7.450); BG PO2 85.8 mmHg (75.0-100.0); BG SAMPLE SITE RIGHT RADIAL; BG TOTAL HEMOGLOBIN 13.2 g/dL (12.0-18.0); BG VENT MODE ROOM AIR
[2017-07-08 22:07] LABS: BASOPHILS % 0.5 % (0.0-2.0); EOSINOPHILS % 2.9 % (0.0-5.0); HEMATOCRIT. 39.5 % (36.0-48.0); HEMOGLOBIN. 12.7 g/dL (12.0-16.0); LYMPHOCYTES % 37.2 % (20.0-50.0); MEAN CORPUSCULAR HEMOGLOBIN 29.5 pg (28.0-32.0); MEAN CORPUSCULAR VOLUME 91.9 fL (81.0-99.0); MEAN PLATELET VOLUME 9.3 fl (7.4-10.4); MONOCYTES % 10.2 % (2.0-8.0); NEUTROPHILS % 49.2 % (40.0-76.0); PLATELET 310 x1000/uL (130-400); RED CELL DISTRIBUTION WIDTH 15.3 % (11.6-14.6)
[2017-07-08 22:09] LABS: CHLORIDE 92 mEq/L (98-107)
[2017-07-08 22:13] LABS: HCG SCREEN NEGATIVE
[2017-07-08] MEDS ORDERED: INSULIN REGULAR (HUMULIN R) 300UNITS/3ML SUBCUT ONE (22:45)
[2017-07-08 23:17] LABS: CLARITY URINE CLEAR (CLEAR); COLOR URINE YELLOW (YELLOW); KETONES URINE TRACE (NEGATIVE); LEUKOCYTE ESTERASE URINE NEGATIVE (NEGATIVE); NITRITE URINE NEGATIVE (NEGATIVE); OCCULT BLOOD URINE NEGATIVE (NEGATIVE); PROTEIN URINE NEGATIVE (NEGATIVE); SPECIFIC GRAVITY URINE 1.033 (1.005-1.030); UROBILINOGEN URINE 0.2 E.U./dL (0.2-1.0)
[2017-07-08] MEDS ORDERED: PREDNISOLONE ACETATE 1% OPHTH DROPS 1ML LEFTEYE ONE (23:30)
[2017-07-08] MEDS ORDERED: TETRACAINE 0.5% OPHTH DROPS 4ML LEFTEYE ONE (23:30)
[2017-07-09 02:01] VITALS: BP 110/72
== END 2017-07-09 02:01 | disposition home or self-care (01) ==
LOC: ER 20:44
DX: E11.65 Type 2 diabetes mellitus with hyperglycemia (principal); E11.21 Type 2 diabetes mellitus with diabetic nephropathy; E87.1 Hypo-osmolality and hyponatremia; I10 Essential (primary) hypertension; H20.00 Unspecified acute and subacute iridocyclitis; E03.9 Hypothyroidism, unspecified; Z79.4 Long term (current) use of insulin; Z88.5 Allergy status to narcotic agent
CPT/HCPCS: 36415; 36600; 80053; 81003; 82010; 82375; 82805; 82962; 83690; 84703; 85025; 96360; 96361; 96372; 99285; J1815; J2405; J7030

== ENCOUNTER 2018-12-31 22:49 | Emergency (ER) | payer MEDICARE, MEDICAID ==
[~2018-12-31] VITALS: Ht 170.2 cm; Wt 77.0 kg
[~2018-12-31 22:49] MED LIST changes: +GABA-529 PO; -HUMALOG SQ; +INSU100V37 SQ; +LANTUSUD SUBCUT; -METF10002 PO
[2019-01-01] MEDS ORDERED: FAMOTIDINE 20MG/2ML VIAL IV STA (06:32)
[2019-01-01] MEDS ORDERED: SODIUM CHLORIDE 0.9% 1,000 ML IV ONE (06:32)
[2019-01-01] MEDS ORDERED: KETOROLAC 15MG/ML VIAL IV ONE (07:00)
[2019-01-01] MEDS ORDERED: ONDANSETRON HCL 4MG/2ML INJ IV ONE (07:00)
[2019-01-01 08:21] LABS: BASOPHILS % 0.6 % (0.0-2.0); EOSINOPHILS % 0.1 % (0.0-5.0); HEMATOCRIT. 41.8 % (36.0-48.0); HEMOGLOBIN. 13.6 g/dL (12.0-16.0); LYMPHOCYTES % 14.1 % (20.0-50.0); MEAN CORPUSCULAR HEMOGLOBIN 31.7 pg (28.0-32.0); MEAN CORPUSCULAR VOLUME 97.4 fL (81.0-99.0); MEAN PLATELET VOLUME 10.4 fl (7.4-10.4); NEUTROPHILS % 80.2 % (40.0-76.0); PLATELET 294 x1000/uL (130-400); RED BLOOD CELL COUNT 4.29 mill/uL (4.2-5.4); RED CELL DISTRIBUTION WIDTH 14.2 % (11.6-14.6)
[2019-01-01 08:28] LABS: CHLORIDE 105 mEq/L (98-107)
[2019-01-01 08:29] LABS: PROTHROMBIN TIME 10.7 sec (9.6-11.0)
[2019-01-01] MEDS ORDERED: DIPHENHYDRAMINE 50MG/ML VIAL IV ONE (08:30)
[2019-01-01] MEDS ORDERED: METOCLOPRAMIDE HCL 10MG/2ML VIAL IV ONE (08:30)
[2019-01-01 08:52] LABS: CLARITY URINE CLOUDY (CLEAR); COLOR URINE YELLOW (YELLOW); KETONES URINE 4+ (NEGATIVE); LEUKOCYTE ESTERASE URINE NEGATIVE (NEGATIVE); NITRITE URINE NEGATIVE (NEGATIVE); OCCULT BLOOD URINE NEGATIVE (NEGATIVE); PH URINE 6.5 (4.5-8.0); PROTEIN URINE NEGATIVE (NEGATIVE); UROBILINOGEN URINE 0.2 E.U./dL (0.2-1.0)
[2019-01-01] MEDS ORDERED: INSULIN REGULAR (HUMULIN R) 300UNITS/3ML SUBCUT ONE (10:30)
[2019-01-01] MEDS ORDERED: LORAZEPAM 2MG/ML CPJ IV ONE (10:45)
[2019-01-01 11:24] VITALS: BP 137/84
== END 2019-01-01 11:48 | disposition home or self-care (01) ==
LOC: ER 22:49
DX: R11.2 Nausea with vomiting, unspecified (principal); R07.89 Other chest pain; E11.9 Type 2 diabetes mellitus without complications; F17.210 Nicotine dependence, cigarettes, uncomplicated; F12.90 Cannabis use, unspecified, uncomplicated
CPT/HCPCS: 36415; 71045; 80053; 81003; 81025; 82962; 83690; 84484; 85025; 85610; 93005; 96372; 96374; 96375; 99284; J1200; J1815; J1885; J2060; J2405; J2765; J3490; J7030

== ENCOUNTER 2019-01-03 11:53 | Emergency (ER) | payer MEDICARE, MEDICAID ==
[~2019-01-03] VITALS: Ht 170.2 cm; Wt 90.0 kg
[2019-01-03 12:02] VITALS: BP 130/90
== END 2019-01-03 15:27 | disposition left against medical advice (07) ==
LOC: ER 12:32
DX: Z53.21 Procedure and treatment not carried out due to patient leaving prior to being seen by health care provider (principal)

== ENCOUNTER 2019-01-04 20:08 | Inpatient (IN) | payer MEDICARE, MEDICAID ==
[~2019-01-04] VITALS: Ht 165.1 cm; Wt 83.7 kg
[~2019-01-04 20:08] MED LIST changes: +PIPERACILLIN/TAZ 3.375G PREMIX 50 ML IV SCH
[2019-01-04] MEDS ORDERED: ONDANSETRON HCL 4MG/2ML INJ IV STA (20:40)
[2019-01-04] MEDS ORDERED: SODIUM CHLORIDE 0.9% 1000ML BAG (SEPSIS BOLUS) IV ONE (20:45)
[2019-01-04] MEDS ORDERED: CEFTRIAXONE 1 G PREMIX 50 ML IV ONE (20:45)
[2019-01-04 21:09] LABS: BASOPHILS % 0.3 % (0.0-2.0); HEMATOCRIT. 50.7 % (36.0-48.0); HEMOGLOBIN. 15.7 g/dL (12.0-16.0); LYMPHOCYTES % 15.3 % (20.0-50.0); MEAN CORPUSCULAR HEMOGLOBIN 31.9 pg (28.0-32.0); MEAN CORPUSCULAR VOLUME 103.1 fL (81.0-99.0); MEAN PLATELET VOLUME 10.8 fl (7.4-10.4); MONOCYTES % 7.6 % (2.0-8.0); NEUTROPHILS % 76.8 % (40.0-76.0); PLATELET 402 x1000/uL (130-400); RED BLOOD CELL COUNT 4.92 mill/uL (4.2-5.4); RED CELL DISTRIBUTION WIDTH 16.2 % (11.6-14.6)
[2019-01-04 21:38] LABS: CHLORIDE 102 mEq/L (98-107)
[2019-01-04 21:41] LABS: BG BASE EXCESS -21.3 mmol/L (-2.0-2.0); BG CARBOXYHEMOGLOBIN 0.9 % (0.5-1.5); BG DEOXYHEMOGLOBIN 1.1 % (0.0-5.0); BG FRACTION INSPIRED OXYGEN 28; BG HCO3 ACT 4.1 mmol/L (22.0-26.0); BG METHEMOGLOBIN 0.4 % (0.0-1.5); BG OXYGEN SATURATION 98.9 % (92.0-98.5); BG OXYHEMOGLOBIN 97.6 % (94.0-97.0); BG PH 7.186 (7.350-7.450); BG PO2 160.3 mmHg (75.0-100.0); BG SAMPLE SITE RIGHT RADIAL; BG TOTAL HEMOGLOBIN 15.4 g/dL (12.0-18.0); BG VENT MODE NASAL CANNULA
[2019-01-04 21:41] LABS: INR 1.1; PROTHROMBIN TIME 10.8 sec (9.6-11.0)
[2019-01-04] MEDS ORDERED: INSULIN REGULAR (DRIP) 100 UNITS in SODIUM CHLORIDE 0.9% 99 ML IV ONE ×2 (22:02→22:15)
[2019-01-04] MEDS ORDERED: SODIUM CHLORIDE 0.9% 1,000 ML IV ONE (22:15)
[2019-01-04] MEDS ORDERED: SODIUM CHLORIDE 0.9% 1,000 ML IV SCH (22:29)
[2019-01-04] MEDS ORDERED: INSULIN REGULAR (DRIP) 100 UNITS in SODIUM CHLORIDE 0.9% 100 ML IV SCH (22:30)
[2019-01-04] MEDS ORDERED: ACETAMINOPHEN 650MG SUPP PR PRN (22:30)
[2019-01-04] MEDS ORDERED: IPRATROPIUM/ALBUTEROL 0.5-3(2.5)MG/3ML NEB NEB PRN (22:30)
[2019-01-04 22:31] LABS: CLARITY URINE CLEAR (CLEAR); COLOR URINE YELLOW (YELLOW); KETONES URINE 4+ (NEGATIVE); LEUKOCYTE ESTERASE URINE NEGATIVE (NEGATIVE); NITRITE URINE NEGATIVE (NEGATIVE); OCCULT BLOOD URINE NEGATIVE (NEGATIVE); PROTEIN URINE TRACE (NEGATIVE); SPECIFIC GRAVITY URINE 1.031 (1.005-1.030); UROBILINOGEN URINE 0.2 E.U./dL (0.2-1.0)
[2019-01-05] VITALS (56 sets, daily range): BP systolic 104–158; BP diastolic 65–103
[2019-01-05 00:36] LABS: CHLORIDE 107 mEq/L (98-107)
[2019-01-05 00:40] LABS: PHOSPHORUS 3.1 mg/dL (2.5-4.9)
[2019-01-05] MEDS ORDERED: PIPERACILLIN/TAZ 3.375G PREMIX 50 ML IV NR (01:00)
[2019-01-05 02:29] LABS: CHLORIDE 112 mEq/L (98-107)
[2019-01-05 02:35] LABS: PHOSPHORUS 2.2 mg/dL (2.5-4.9)
[2019-01-05] MEDS ORDERED: SODIUM CHLORIDE 0.9% 1,000 ML IV SCH (04:15)
[2019-01-05 04:35] LABS: BASOPHILS % 0.4 % (0.0-2.0); HEMATOCRIT. 46.9 % (36.0-48.0); HEMOGLOBIN. 14.9 g/dL (12.0-16.0); LYMPHOCYTES % 16.1 % (20.0-50.0); MEAN CORPUSCULAR HEMOGLOBIN 31.9 pg (28.0-32.0); MEAN CORPUSCULAR VOLUME 100.3 fL (81.0-99.0); MEAN PLATELET VOLUME 10.1 fl (7.4-10.4); MONOCYTES % 11.9 % (2.0-8.0); NEUTROPHILS % 71.6 % (40.0-76.0); PLATELET 351 x1000/uL (130-400); RED BLOOD CELL COUNT 4.68 mill/uL (4.2-5.4); RED CELL DISTRIBUTION WIDTH 14.7 % (11.6-14.6)
[2019-01-05 04:43] LABS: CHLORIDE 116 mEq/L (98-107)
[2019-01-05 04:49] LABS: PHOSPHORUS 1.3 mg/dL (2.5-4.9)
[2019-01-05 04:50] LABS: HDL CHOLESTEROL 60 mg/dL (40-59); LDL CHOLESTEROL 68 mg/dL (5-100)
[2019-01-05 04:51] LABS: CREATINE KINASE 34 IU/L (26-192)
[2019-01-05 04:53] LABS: CREATINE KINASE MB FRACTION 1.2 ng/mL (0.5-3.6)
[2019-01-05] MEDS ORDERED: INSULIN REGULAR (DRIP) 100 UNITS in SODIUM CHLORIDE 0.9% 100 ML IV SCH (07:01)
[2019-01-05] MEDS ORDERED: DEXTROSE 50% WATER 50ML SYRINGE IV PRN ×3 (07:15→19:45)
[2019-01-05] MEDS: BLOOD SUGAR DIAGNOSTIC STRIP TEST SCH ×14 (07:17→20:01)
[2019-01-05] MEDS: DEXT 5%/0.9% NACL KCL 20MEQ/L 1,000 ML IV SCH ×3 (08:13→19:14)
[2019-01-05 08:16] LABS: *AMPHETAMINES SCREEN URINE NEGATIVE (NEGATIVE); *BARBITURATES SCREEN URINE NEGATIVE (NEGATIVE); *BENZODIAZEPINES SCREEN URINE NEGATIVE (NEGATIVE); *COCAINE SCREEN URINE NEGATIVE (NEGATIVE)
[2019-01-05 08:17] LABS: METHADONE URINE SCREEN NEGATIVE (NEGATIVE); OPIATES URINE SCREEN NEGATIVE (NEGATIVE); PHENCYCLIDINE URINE SCREEN NEGATIVE (NEGATIVE)
[2019-01-05 08:18] LABS: CHLORIDE 119 mEq/L (98-107)
[2019-01-05 08:46] LABS: CANNABINOID URINE SCREEN PRESUMTIVE POSITIVE (NEGATIVE)
[2019-01-05] MEDS: ENOXAPARIN 40MG/0.4ML SYR SUBCUT SCH (09:28)
[2019-01-05] MEDS: PIPERACILLIN/TAZOBACTAM 3.375 G in DEXT 5% WATER 100 ML IV SCH ×2 (09:55→17:17)
[2019-01-05 12:27] LABS: CHLORIDE 120 mEq/L (98-107)
[2019-01-05 12:36] LABS: CREATINE KINASE 37 IU/L (26-192)
[2019-01-05 12:37] LABS: CREATINE KINASE MB FRACTION 1.2 ng/mL (0.5-3.6)
[2019-01-05] MEDS ORDERED: SODIUM CHL 0.9% + KCL 20MEQ/L 1,000 ML IV PRN (15:15)
[2019-01-05] MEDS ORDERED: SODIUM CHLORIDE 0.9% 1,000 ML IV PRN (15:15)
[2019-01-05] MEDS ORDERED: DEXT 5%/0.9% NACL 1,000 ML IV PRN (15:15)
[2019-01-05] MEDS ORDERED: DIPHENHYDRAMINE 50MG/ML VIAL IV PRN (16:00)
[2019-01-05] MEDS: ONDANSETRON HCL 4MG/2ML INJ IV PRN (16:02)
[2019-01-05 18:41] LABS: CHLORIDE 120 mEq/L (98-107)
[2019-01-05] MEDS: INSULIN LISPRO 100 UNITS/ML SUBCUT SCH (20:00)
[2019-01-05] MEDS: METOCLOPRAMIDE HCL 10MG/2ML VIAL IV PRN (20:46)
[2019-01-05] MEDS: INSULIN GLARGINE UD 100 UNITS/ML SYR SUBCUT SCH (21:25)
[2019-01-06] VITALS (8 sets, daily range): BP systolic 118–141; BP diastolic 65–86
[2019-01-06] MEDS: BLOOD SUGAR DIAGNOSTIC STRIP TEST SCH ×6 (00:11→21:04)
[2019-01-06] MEDS: INSULIN LISPRO 100 UNITS/ML SUBCUT SCH ×6 (00:23→21:11)
[2019-01-06] MEDS: ONDANSETRON HCL 4MG/2ML INJ IV PRN (00:30)
[2019-01-06] MEDS: PIPERACILLIN/TAZOBACTAM 3.375 G in DEXT 5% WATER 100 ML IV SCH ×3 (02:49→17:33)
[2019-01-06] MEDS: METOCLOPRAMIDE HCL 10MG/2ML VIAL IV PRN ×2 (04:25→17:37)
[2019-01-06] MEDS: SODIUM CHLORIDE 0.9% 1,000 ML IV SCH (05:16)
[2019-01-06 06:36] LABS: BASOPHILS % 0.3 % (0.0-2.0); EOSINOPHILS % 0.7 % (0.0-5.0); HEMOGLOBIN. 13.4 g/dL (12.0-16.0); LYMPHOCYTES % 18.7 % (20.0-50.0); MEAN CORPUSCULAR VOLUME 95.6 fL (81.0-99.0); MEAN PLATELET VOLUME 10.6 fl (7.4-10.4); MONOCYTES % 5.8 % (2.0-8.0); NEUTROPHILS % 74.5 % (40.0-76.0); PLATELET 245 x1000/uL (130-400); RED BLOOD CELL COUNT 4.18 mill/uL (4.2-5.4)
[2019-01-06 07:17] LABS: CHLORIDE 115 mEq/L (98-107)
[2019-01-06 07:54] LABS: PHOSPHORUS 0.4 mg/dL (2.5-4.9)
[2019-01-06] MEDS: ENOXAPARIN 40MG/0.4ML SYR SUBCUT SCH (08:32)
[2019-01-06] MEDS ORDERED: POTASSIUM PHOS,M-BASIC-D-BASIC 20 MMOL in DEXT 5% WATER 243.3333 ML IV NR (10:00)
[2019-01-06] MEDS: INSULIN GLARGINE UD 100 UNITS/ML SYR SUBCUT SCH (21:12)
[2019-01-07] VITALS: BP 132/82
[2019-01-07] MEDS: PIPERACILLIN/TAZOBACTAM 3.375 G in DEXT 5% WATER 100 ML IV SCH ×3 (01:33→18:20)
[2019-01-07] MEDS: SODIUM CHLORIDE 0.9% 1,000 ML IV SCH ×3 (01:36→23:54)
[2019-01-07 04:00] VITALS: BP 117/89
[2019-01-07] MEDS: LEVOTHYROXINE SODIUM 75MCG TABLET PO SCH (06:20)
[2019-01-07] MEDS: BLOOD SUGAR DIAGNOSTIC STRIP TEST SCH ×4 (06:20→21:14)
[2019-01-07] MEDS: INSULIN LISPRO 100 UNITS/ML SUBCUT SCH ×3 (06:23→17:44)
[2019-01-07 07:51] LABS: BASOPHILS % 0.3 % (0.0-2.0); EOSINOPHILS % 2.1 % (0.0-5.0); HEMATOCRIT. 37.9 % (36.0-48.0); HEMOGLOBIN. 12.7 g/dL (12.0-16.0); LYMPHOCYTES % 37.2 % (20.0-50.0); MEAN CORPUSCULAR HEMOGLOBIN 31.7 pg (28.0-32.0); MEAN CORPUSCULAR VOLUME 94.9 fL (81.0-99.0); MEAN PLATELET VOLUME 10.3 fl (7.4-10.4); NEUTROPHILS % 50.4 % (40.0-76.0); PLATELET 233 x1000/uL (130-400); RED BLOOD CELL COUNT 3.99 mill/uL (4.2-5.4)
[2019-01-07 07:58] LABS: CHLORIDE 102 mEq/L (98-107)
[2019-01-07 08:00] VITALS: BP 120/88
[2019-01-07 08:12] LABS: PHOSPHORUS 1.4 mg/dL (2.5-4.9)
[2019-01-07] MEDS ORDERED: POTASSIUM CHLORIDE 20MEQ TABLET SR PO NR (08:15)
[2019-01-07] MEDS ORDERED: POTASSIUM CHLORIDE INJ 40 MEQ in DEXT 5% WATER 250 ML IV NR (09:00)
[2019-01-07] MEDS: ENOXAPARIN 40MG/0.4ML SYR SUBCUT SCH (09:28)
[2019-01-07] MEDS: ONDANSETRON HCL 4MG/2ML INJ IV PRN ×2 (10:15→17:43)
[2019-01-07] MEDS ORDERED: POTASSIUM PHOS,M-BASIC-D-BASIC 30 MMOL in SODIUM CHLORIDE 0.9% 500 ML IV NR (11:00)
[2019-01-07] MEDS ORDERED: INSULIN LISPRO 100 UNITS/ML SUBCUT SCH (11:45)
[2019-01-07 12:00] VITALS: BP 117/84
[2019-01-07] MEDS: INSULIN LISPRO (CUSTOM DOSE) 100 UNITS/ML SUBCUT SCH ×2 (12:26→16:45)
[2019-01-07 16:00] VITALS: BP 124/86
[2019-01-07 19:05] LABS: CHLORIDE 100 mEq/L (98-107)
[2019-01-07 20:00] VITALS: BP 115/79
[2019-01-07] MEDS ORDERED: INSULIN GLARGINE UD 100 UNITS/ML SYR SUBCUT SCH (22:00)
[2019-01-07] MEDS ORDERED: POTASSIUM CHLORIDE INJ 40 MEQ in DEXT 5% WATER 250 ML IV SCH (22:30)
[2019-01-08] VITALS: BP 136/79
[2019-01-08] MEDS: METOCLOPRAMIDE HCL 10MG/2ML VIAL IV PRN ×2 (00:09→09:22)
[2019-01-08] MEDS: SODIUM CHLORIDE 0.9% 1,000 ML IV SCH ×2 (00:12→14:21)
[2019-01-08] MEDS ORDERED: POTASSIUM CHLORIDE INJ 40 MEQ in SODIUM CHLORIDE 0.9% 250 ML IV SCH (01:00)
[2019-01-08] MEDS: PIPERACILLIN/TAZOBACTAM 3.375 G in DEXT 5% WATER 100 ML IV SCH ×3 (01:10→18:15)
[2019-01-08] MEDS: ONDANSETRON HCL 4MG/2ML INJ IV PRN (03:56)
[2019-01-08 04:00] VITALS: BP 123/87
[2019-01-08] MEDS: LEVOTHYROXINE SODIUM 75MCG TABLET PO SCH (06:05)
[2019-01-08] MEDS: BLOOD SUGAR DIAGNOSTIC STRIP TEST SCH ×4 (06:23→20:32)
[2019-01-08] MEDS: INSULIN LISPRO (CUSTOM DOSE) 100 UNITS/ML SUBCUT SCH ×3 (06:23→17:04)
[2019-01-08] MEDS: INSULIN LISPRO 100 UNITS/ML SUBCUT SCH ×3 (06:45→17:04)
[2019-01-08 07:34] LABS: BASOPHILS % 0.3 % (0.0-2.0); EOSINOPHILS % 1.4 % (0.0-5.0); HEMATOCRIT. 37.2 % (36.0-48.0); HEMOGLOBIN. 12.5 g/dL (12.0-16.0); MEAN CORPUSCULAR HEMOGLOBIN 32.1 pg (28.0-32.0); MEAN CORPUSCULAR VOLUME 95.6 fL (81.0-99.0); MEAN PLATELET VOLUME 9.8 fl (7.4-10.4); MONOCYTES % 11.7 % (2.0-8.0); NEUTROPHILS % 53.6 % (40.0-76.0); PLATELET 216 x1000/uL (130-400); RED BLOOD CELL COUNT 3.89 mill/uL (4.2-5.4); RED CELL DISTRIBUTION WIDTH 14.1 % (11.6-14.6)
[2019-01-08 07:36] LABS: CHLORIDE 103 mEq/L (98-107)
[2019-01-08 07:43] LABS: PHOSPHORUS 1.7 mg/dL (2.5-4.9)
[2019-01-08 08:00] VITALS: BP 135/83
[2019-01-08] MEDS: ENOXAPARIN 40MG/0.4ML SYR SUBCUT SCH (09:21)
[2019-01-08] MEDS ORDERED: POTASSIUM PHOS,M-BASIC-D-BASIC 30 MMOL in SODIUM CHLORIDE 0.9% 500 ML IV SCH (10:30)
[2019-01-08] MEDS: DOCUSATE SODIUM 100MG CAPSULE PO SCH ×2 (11:31→17:01)
[2019-01-08 12:00] VITALS: BP 135/80
[2019-01-08] MEDS: METOCLOPRAMIDE HCL 10MG/2ML VIAL IV SCH ×2 (14:21→20:32)
[2019-01-08 16:00] VITALS: BP 124/89
[2019-01-08 20:00] VITALS: BP 132/86
[2019-01-08] MEDS ORDERED: INSULIN GLARGINE UD 100 UNITS/ML SYR SUBCUT SCH (22:00)
[2019-01-09] VITALS: BP 137/82
[2019-01-09] MEDS: PIPERACILLIN/TAZOBACTAM 3.375 G in DEXT 5% WATER 100 ML IV SCH ×2 (01:03→10:03)
[2019-01-09] MEDS: METOCLOPRAMIDE HCL 10MG/2ML VIAL IV SCH ×3 (01:03→13:14)
[2019-01-09 04:00] VITALS: BP 128/85
[2019-01-09] MEDS: LEVOTHYROXINE SODIUM 75MCG TABLET PO SCH (06:09)
[2019-01-09] MEDS: BLOOD SUGAR DIAGNOSTIC STRIP TEST SCH ×3 (06:10→17:43)
[2019-01-09] MEDS: INSULIN LISPRO 100 UNITS/ML SUBCUT SCH ×3 (06:11→17:56)
[2019-01-09] MEDS: INSULIN LISPRO (CUSTOM DOSE) 100 UNITS/ML SUBCUT SCH ×3 (06:11→16:45)
[2019-01-09 06:58] LABS: BASOPHILS % 0.5 % (0.0-2.0); EOSINOPHILS % 2.9 % (0.0-5.0); HEMATOCRIT. 36.9 % (36.0-48.0); HEMOGLOBIN. 12.2 g/dL (12.0-16.0); LYMPHOCYTES % 40.6 % (20.0-50.0); MEAN CORPUSCULAR HEMOGLOBIN 31.6 pg (28.0-32.0); MEAN CORPUSCULAR VOLUME 95.6 fL (81.0-99.0); MEAN PLATELET VOLUME 10.6 fl (7.4-10.4); MONOCYTES % 9.2 % (2.0-8.0); NEUTROPHILS % 46.8 % (40.0-76.0); PLATELET 212 x1000/uL (130-400); RED BLOOD CELL COUNT 3.86 mill/uL (4.2-5.4)
[2019-01-09 07:03] LABS: CHLORIDE 102 mEq/L (98-107)
[2019-01-09 07:09] LABS: PHOSPHORUS 2.3 mg/dL (2.5-4.9)
[2019-01-09 08:00] VITALS: BP 140/93
[2019-01-09] MEDS: DOCUSATE SODIUM 100MG CAPSULE PO SCH ×2 (09:17→17:54)
[2019-01-09] MEDS: ENOXAPARIN 40MG/0.4ML SYR SUBCUT SCH (09:17)
[2019-01-09] MEDS: SODIUM CHLORIDE 0.9% 1,000 ML IV SCH (09:17)
[2019-01-09 12:00] VITALS: BP 140/85
[2019-01-09] MEDS ORDERED: POTASSIUM PHOS,M-BASIC-D-BASIC 30 MMOL in SODIUM CHLORIDE 0.9% 500 ML IV NR (13:00)
[2019-01-09] MEDS ORDERED: INSULIN GLARGINE UD 100 UNITS/ML SYR SUBCUT NR (13:00)
[2019-01-09 16:00] VITALS: BP 125/91
[2019-01-09] MEDS ORDERED: METO-293 MT (16:05)
[2019-01-09] MEDS ORDERED: INSLIS SUBCUT (16:05)
[2019-01-09] MEDS ORDERED: LANTUSUD SUBCUT (16:05)
[2019-01-09 16:15] VITALS: BP 125/91
[2019-01-09] MEDS ORDERED: INSULIN GLARGINE UD 100 UNITS/ML SYR SUBCUT SCH (22:00)
== END 2019-01-09 18:14 | disposition home or self-care (01) | DRG 638 ==
LOC: ER 20:08 → MICUNO 22:13 → EDBEDREQSVC 22:15 → EDBEDREQTM 22:15 → EDBEDREQ 22:15 → ENRESERV 01-05 05:23 → 5WST 01-06 01:05
PROVIDERS: ADMIT Internal Medicine; ATTEND Internal Medicine
DX: E10.10 Type 1 diabetes mellitus with ketoacidosis without coma (principal); E87.1 Hypo-osmolality and hyponatremia; E46 Unspecified protein-calorie malnutrition; E03.9 Hypothyroidism, unspecified; E10.40 Type 1 diabetes mellitus with diabetic neuropathy, unspecified; E83.39 Other disorders of phosphorus metabolism; E83.41 Hypermagnesemia; E86.0 Dehydration; E87.5 Hyperkalemia; E10.43 Type 1 diabetes mellitus with diabetic autonomic (poly)neuropathy; E66.9 Obesity, unspecified; E87.6 Hypokalemia; H91.90 Unspecified hearing loss, unspecified ear; K52.9 Noninfective gastroenteritis and colitis, unspecified; K76.0 Fatty (change of) liver, not elsewhere classified; E10.649 Type 1 diabetes mellitus with hypoglycemia without coma; F17.290 Nicotine dependence, other tobacco product, uncomplicated; K31.84 Gastroparesis; R32 Unspecified urinary incontinence; Z79.4 Long term (current) use of insulin; F31.9 Bipolar disorder, unspecified; Z82.49 Family history of ischemic heart disease and other diseases of the circulatory system; Z83.3 Family history of diabetes mellitus; Z68.30 Body mass index [BMI] 30.0-30.9, adult
CPT/HCPCS: 36415; 36600; 71045; 74021; 76700; 80048; 80061; 80305; 81003; 82375; 82533; 82550; 82553; 82805; 82962; 83036; 83605; 83735; 84100; 84145; 84443; 84484; 93005; 93970; 99291; J0696; J1200; J1650; J1815; J2405; J2543; J2765; J3480; J3490; J7030; J7040; J7050; J7060

== ENCOUNTER 2019-02-04 15:28 | Inpatient (IN) | payer MEDICARE, MEDICAID ==
[~2019-02-04] VITALS: Ht 165.1 cm; Wt 78.9 kg
[2019-02-04] VITALS (7 sets, daily range): BP systolic 108–128; BP diastolic 67–76
[~2019-02-04 15:28] MED LIST changes: +INSLIS SUBCUT; -INSU100V37 SQ; +METO-293 MT; -PIPERACILLIN/TAZ 3.375G PREMIX 50 ML IV SCH
[2019-02-04] MEDS ORDERED: SODIUM CHLORIDE 0.9% 1,000 ML IV ONE ×3 (16:00→17:30)
[2019-02-04] MEDS ORDERED: ONDANSETRON HCL 4MG/2ML INJ IV STA (16:00)
[2019-02-04 16:57] LABS: BASOPHILS % 0.3 % (0.0-2.0); HEMATOCRIT. 49.4 % (36.0-48.0); HEMOGLOBIN. 15.3 g/dL (12.0-16.0); LYMPHOCYTES % 10.7 % (20.0-50.0); MEAN CORPUSCULAR HEMOGLOBIN 31.1 pg (28.0-32.0); MEAN CORPUSCULAR VOLUME 100.5 fL (81.0-99.0); MEAN PLATELET VOLUME 10.6 fl (7.4-10.4); PLATELET 451 x1000/uL (130-400); RED BLOOD CELL COUNT 4.91 mill/uL (4.2-5.4); RED CELL DISTRIBUTION WIDTH 14.7 % (11.6-14.6)
[2019-02-04 17:02] LABS: CHLORIDE 99 mEq/L (98-107)
[2019-02-04] MEDS ORDERED: ACETAMINOPHEN 325MG TABLET PO PRN (17:30)
[2019-02-04] MEDS ORDERED: INSULIN REGULAR (DRIP) 100 UNITS in SODIUM CHLORIDE 0.9% 99 ML IV NR (17:30)
[2019-02-04] MEDS ORDERED: SODIUM CHLORIDE 0.9% 1,000 ML IV SCH ×2 (17:30→21:00)
[2019-02-04 19:25] LABS: CLARITY URINE CLEAR (CLEAR); COLOR URINE YELLOW (YELLOW); KETONES URINE 4+ (NEGATIVE); LEUKOCYTE ESTERASE URINE NEGATIVE (NEGATIVE); NITRITE URINE NEGATIVE (NEGATIVE); OCCULT BLOOD URINE NEGATIVE (NEGATIVE); PROTEIN URINE NEGATIVE (NEGATIVE); SPECIFIC GRAVITY URINE 1.024 (1.005-1.030); UROBILINOGEN URINE 0.2 E.U./dL (0.2-1.0)
[2019-02-04] MEDS ORDERED: DEXTROSE 50% WATER 50ML SYRINGE IV PRN ×2 (21:30)
[2019-02-04] MEDS: BLOOD SUGAR DIAGNOSTIC STRIP TEST SCH ×2 (22:00→23:18)
[2019-02-04] MEDS ORDERED: SODIUM CHLORIDE 0.9% IV SCH (22:00)
[2019-02-04] MEDS ORDERED: INSULIN REGULAR IV SCH (22:00)
[2019-02-05] VITALS (31 sets, daily range): BP systolic 111–158; BP diastolic 67–102
[2019-02-05] MEDS: BLOOD SUGAR DIAGNOSTIC STRIP TEST SCH ×15 (00:12→21:46)
[2019-02-05] MEDS: DEXT 5%/0.45% NACL 1000ML 1,000 ML IV SCH ×2 (00:28→08:15)
[2019-02-05 01:09] LABS: CHLORIDE 112 mEq/L (98-107)
[2019-02-05] MEDS: ONDANSETRON HCL 4MG/2ML INJ IV PRN ×3 (02:23→22:14)
[2019-02-05] MEDS: METOCLOPRAMIDE HCL 10MG/2ML VIAL IV PRN ×2 (04:40→16:44)
[2019-02-05] MEDS: MORPHINE SULFATE 2 MG/ML CPJ (NOT FOR IM USE) IV PRN (04:41)
[2019-02-05 06:08] LABS: BASOPHILS % 0.1 % (0.0-2.0); EOSINOPHILS % 0.1 % (0.0-5.0); HEMOGLOBIN. 13.8 g/dL (12.0-16.0); LYMPHOCYTES % 13.3 % (20.0-50.0); MEAN CORPUSCULAR HEMOGLOBIN 31.2 pg (28.0-32.0); MEAN CORPUSCULAR VOLUME 97.3 fL (81.0-99.0); MEAN PLATELET VOLUME 10.1 fl (7.4-10.4); MONOCYTES % 8.7 % (2.0-8.0); NEUTROPHILS % 77.8 % (40.0-76.0); PLATELET 332 x1000/uL (130-400); RED BLOOD CELL COUNT 4.42 mill/uL (4.2-5.4); RED CELL DISTRIBUTION WIDTH 14.3 % (11.6-14.6)
[2019-02-05 06:20] LABS: PHOSPHORUS 1.9 mg/dL (2.5-4.9)
[2019-02-05 06:51] LABS: CHLORIDE 114 mEq/L (98-107)
[2019-02-05 08:51] LABS: CHLORIDE 114 mEq/L (98-107)
[2019-02-05] MEDS ORDERED: DEXTROSE 50% WATER 50ML SYRINGE IV PRN (09:30)
[2019-02-05] MEDS: LEVOTHYROXINE SODIUM 75MCG TABLET PO SCH (10:09)
[2019-02-05] MEDS: INSULIN GLARGINE UD 100 UNITS/ML SYR SUBCUT SCH ×2 (10:11→21:47)
[2019-02-05] MEDS: METOPROLOL TARTRATE 25MG TABLET PO SCH ×2 (10:25→21:00)
[2019-02-05] MEDS ORDERED: INSULIN GLARGINE UD 100 UNITS/ML SYR SUBCUT SCH (10:30)
[2019-02-05] MEDS ORDERED: SODIUM PHOS,M-BASIC-D-BASIC 20 MM in DEXT 5% WATER 243.3333 ML IV NR (10:30)
[2019-02-05] MEDS: INSULIN LISPRO 100 UNITS/ML SUBCUT SCH ×3 (12:31→21:46)
[2019-02-05] MEDS ORDERED: CLONIDINE 0.1MG TABLET PO PRN (17:30)
[2019-02-05] MEDS ORDERED: METOPROLOL TARTRATE 25MG TABLET PO SCH (21:00)
[2019-02-06] VITALS: BP 142/98
[2019-02-06] MEDS: ONDANSETRON HCL 4MG/2ML INJ IV PRN ×3 (02:14→16:13)
[2019-02-06] MEDS: MORPHINE SULFATE 2 MG/ML CPJ (NOT FOR IM USE) IV PRN ×2 (02:20→06:34)
[2019-02-06 04:00] VITALS: BP 132/92
[2019-02-06] MEDS: BLOOD SUGAR DIAGNOSTIC STRIP TEST SCH ×3 (05:59→16:46)
[2019-02-06] MEDS: LEVOTHYROXINE SODIUM 75MCG TABLET PO SCH (05:59)
[2019-02-06] MEDS: INSULIN LISPRO 100 UNITS/ML SUBCUT SCH ×3 (06:22→16:54)
[2019-02-06 08:00] VITALS: BP 128/84
[2019-02-06] MEDS: METOPROLOL TARTRATE 25MG TABLET PO SCH (09:22)
[2019-02-06] MEDS: INSULIN GLARGINE UD 100 UNITS/ML SYR SUBCUT SCH (09:22)
[2019-02-06 12:00] VITALS: BP 143/103
[2019-02-06 13:44] LABS: BASOPHILS % 0.5 % (0.0-2.0); EOSINOPHILS % 0.5 % (0.0-5.0); HEMATOCRIT. 43.3 % (36.0-48.0); HEMOGLOBIN. 14.2 g/dL (12.0-16.0); LYMPHOCYTES % 16.7 % (20.0-50.0); MEAN CORPUSCULAR HEMOGLOBIN 31.1 pg (28.0-32.0); MEAN CORPUSCULAR VOLUME 94.9 fL (81.0-99.0); MEAN PLATELET VOLUME 10.4 fl (7.4-10.4); MONOCYTES % 7.9 % (2.0-8.0); NEUTROPHILS % 74.4 % (40.0-76.0); PLATELET 335 x1000/uL (130-400); RED BLOOD CELL COUNT 4.56 mill/uL (4.2-5.4); RED CELL DISTRIBUTION WIDTH 14.2 % (11.6-14.6)
[2019-02-06 14:04] LABS: CHLORIDE 102 mEq/L (98-107)
[2019-02-06] MEDS ORDERED: INSULIN LISPRO 100 UNITS/ML SUBCUT NR (15:30)
[2019-02-06 16:00] VITALS: BP 131/97
[2019-02-06 16:36] VITALS: BP 131/97
[2019-02-06] MEDS ORDERED: INSULIN GLARGINE UD 100 UNITS/ML SYR SUBCUT SCH (22:00)
== END 2019-02-06 17:15 | disposition home or self-care (01) | DRG 638 ==
LOC: ER 15:28 → CVICU 17:13 → EDBEDREQSVC 17:15 → EDBEDREQ 17:15 → ENRESERV 18:30 → 5WST 02-05 16:37
PROVIDERS: ADMIT Internal Medicine; ATTEND Internal Medicine
DX: E11.10 Type 2 diabetes mellitus with ketoacidosis without coma (principal); E87.1 Hypo-osmolality and hyponatremia; E03.9 Hypothyroidism, unspecified; E87.8 Other disorders of electrolyte and fluid balance, not elsewhere classified; D72.829 Elevated white blood cell count, unspecified; E05.90 Thyrotoxicosis, unspecified without thyrotoxic crisis or storm; R00.0 Tachycardia, unspecified; Z88.5 Allergy status to narcotic agent; Z79.4 Long term (current) use of insulin; Z91.013 Allergy to seafood; Z79.899 Other long term (current) drug therapy
CPT/HCPCS: 36415; 71045; 74018; 80048; 81003; 82962; 83605; 83735; 84100; 84484; 93005; 99291; J1815; J2270; J2405; J2765; J3490; J7030; J7050; J7060

== ENCOUNTER 2019-02-08 01:22 | Emergency (ER) | payer MEDICARE, OTHER ==
[~2019-02-08] VITALS: Ht 170.2 cm; Wt 68.0 kg
[2019-02-08] MEDS ORDERED: SODIUM CHLORIDE 0.9% 1,000 ML IV ONE (07:05)
[2019-02-08] MEDS ORDERED: METOCLOPRAMIDE HCL 10MG TABLET PO ONE (07:15)
[2019-02-08] MEDS ORDERED: METOCLOPRAMIDE HCL 10MG/2ML VIAL IV ONE (07:45)
[2019-02-08 08:21] LABS: HEMOGLOBIN 13.7 g/dL (12.0-16.0); MEAN CORPUSCULAR HEMOGLOBIN 31.2 pg (28.0-32.0); MEAN CORPUSCULAR VOLUME 95.4 fL (81.0-99.0); PLATELET 334 x1000/uL (130-400); RED CELL DISTRIBUTION WIDTH 14.2 % (11.6-14.6)
[2019-02-08 08:24] LABS: CHLORIDE 106 mEq/L (98-107)
[2019-02-08 08:32] LABS: BETA HYDROXYBUTYRATE 2.4 mMol/L (0.0-0.3)
[2019-02-08 08:37] VITALS: BP 130/94
== END 2019-02-08 09:30 | disposition home or self-care (01) ==
LOC: ER 01:22
DX: R11.2 Nausea with vomiting, unspecified (principal); E11.9 Type 2 diabetes mellitus without complications; F17.200 Nicotine dependence, unspecified, uncomplicated; I10 Essential (primary) hypertension; E03.9 Hypothyroidism, unspecified; Z79.4 Long term (current) use of insulin; Z79.899 Other long term (current) drug therapy; Z88.5 Allergy status to narcotic agent; Z91.013 Allergy to seafood
CPT/HCPCS: 36415; 80053; 82010; 82962; 85027; 96374; 99283; J2765

== ENCOUNTER 2019-02-08 19:27 | Inpatient (IN) | payer MEDICARE, MEDICAID ==
[~2019-02-08] VITALS: Ht 170.2 cm; Wt 77.6 kg
[2019-02-08] MEDS ORDERED: METOCLOPRAMIDE HCL 5MG TABLET PO ONE (20:15)
[2019-02-08] MEDS ORDERED: ONDANSETRON HCL 4MG/2ML INJ IM ONE (20:15)
[2019-02-08] MEDS ORDERED: ONDANSETRON HCL 4MG/2ML INJ IV STA (20:40)
[2019-02-08] MEDS ORDERED: SODIUM CHLORIDE 0.9% 1,000 ML IV ONE (20:40)
[2019-02-08 21:25] LABS: BASOPHILS % 0.5 % (0.0-2.0); EOSINOPHILS % 1.1 % (0.0-5.0); HEMATOCRIT. 43.2 % (36.0-48.0); HEMOGLOBIN. 14.3 g/dL (12.0-16.0); LYMPHOCYTES % 27.2 % (20.0-50.0); MEAN CORPUSCULAR HEMOGLOBIN 31.4 pg (28.0-32.0); MEAN CORPUSCULAR VOLUME 94.8 fL (81.0-99.0); MEAN PLATELET VOLUME 10.4 fl (7.4-10.4); MONOCYTES % 8.8 % (2.0-8.0); NEUTROPHILS % 62.4 % (40.0-76.0); PLATELET 306 x1000/uL (130-400); RED BLOOD CELL COUNT 4.56 mill/uL (4.2-5.4); RED CELL DISTRIBUTION WIDTH 14.1 % (11.6-14.6)
[2019-02-08 21:31] LABS: CHLORIDE 103 mEq/L (98-107)
[2019-02-08 21:33] LABS: PROTHROMBIN TIME 10.4 sec (9.6-11.0)
[2019-02-08] MEDS ORDERED: METOCLOPRAMIDE HCL 10MG/2ML VIAL IV ONE (23:45)
[2019-02-09 03:05] VITALS: BP 149/104
[2019-02-09] MEDS ORDERED: DEXTROSE 50% WATER 50ML SYRINGE IV PRN (05:15)
[2019-02-09] MEDS: BLOOD SUGAR DIAGNOSTIC STRIP TEST SCH ×4 (07:10→21:17)
[2019-02-09] MEDS: INSULIN LISPRO 100 UNITS/ML SUBCUT SCH ×4 (07:40→22:05)
[2019-02-09 08:00] VITALS: BP 140/80
[2019-02-09] MEDS ORDERED: THIAMINE HCL 100MG TABLET PO SCH (09:00)
[2019-02-09] MEDS: METOCLOPRAMIDE 10MG/10 ML UDC PO SCH ×4 (09:05→21:17)
[2019-02-09] MEDS: PANTOPRAZOLE SODIUM 40 MG/VIAL IV SCH (09:06)
[2019-02-09] MEDS: FOLIC ACID/VITAMIN B COMP W-C TABLET PO SCH (09:06)
[2019-02-09] MEDS: MULTIVITAMINS,THER W-MINERALS TABLET PO SCH (09:06)
[2019-02-09] MEDS: GABAPENTIN 100MG CAPSULE PO SCH ×3 (09:07→21:16)
[2019-02-09] MEDS: METOPROLOL TARTRATE 50MG TABLET PO SCH ×2 (09:07→21:16)
[2019-02-09] MEDS: LEVOTHYROXINE SODIUM 75MCG TABLET PO SCH (09:08)
[2019-02-09 11:03] LABS: CHLORIDE 102 mEq/L (98-107)
[2019-02-09 11:15] LABS: BASOPHILS % 0.4 % (0.0-2.0); EOSINOPHILS % 1.7 % (0.0-5.0); HEMATOCRIT. 40.7 % (36.0-48.0); HEMOGLOBIN. 13.2 g/dL (12.0-16.0); LYMPHOCYTES % 31.7 % (20.0-50.0); MEAN CORPUSCULAR HEMOGLOBIN 31.2 pg (28.0-32.0); MEAN CORPUSCULAR VOLUME 96.4 fL (81.0-99.0); MEAN PLATELET VOLUME 10.7 fl (7.4-10.4); MONOCYTES % 9.6 % (2.0-8.0); NEUTROPHILS % 56.6 % (40.0-76.0); PLATELET 280 x1000/uL (130-400); RED BLOOD CELL COUNT 4.22 mill/uL (4.2-5.4); RED CELL DISTRIBUTION WIDTH 14.2 % (11.6-14.6)
[2019-02-09 12:00] VITALS: BP 121/99
[2019-02-09] MEDS ORDERED: PNEUMOCOCCAL 23-VAL P-SAC VAC 0.5 ML IM ONE (12:00)
[2019-02-09 16:00] VITALS: BP 109/88
[2019-02-09 20:00] VITALS: BP 120/79
[2019-02-09] MEDS ORDERED: NORTRIPTYLINE HCL 25MG CAPSULE PO SCH (21:00)
[2019-02-09] MEDS: INSULIN GLARGINE UD 100 UNITS/ML SYR SUBCUT SCH (22:03)
[2019-02-10] VITALS: BP 129/86
[2019-02-10 04:00] VITALS: BP 124/60
[2019-02-10] MEDS: GABAPENTIN 100MG CAPSULE PO SCH ×2 (05:11→13:45)
[2019-02-10] MEDS: LEVOTHYROXINE SODIUM 75MCG TABLET PO SCH (06:12)
[2019-02-10] MEDS: METOCLOPRAMIDE 10MG/10 ML UDC PO SCH ×2 (06:12→13:44)
[2019-02-10] MEDS: BLOOD SUGAR DIAGNOSTIC STRIP TEST SCH (06:12)
[2019-02-10] MEDS: INSULIN LISPRO 100 UNITS/ML SUBCUT SCH (06:13)
[2019-02-10 08:00] VITALS: BP 136/97
[2019-02-10] MEDS: PANTOPRAZOLE SODIUM 40 MG/VIAL IV SCH (08:48)
[2019-02-10] MEDS: MULTIVITAMINS,THER W-MINERALS TABLET PO SCH (08:48)
[2019-02-10] MEDS: FOLIC ACID/VITAMIN B COMP W-C TABLET PO SCH (08:48)
[2019-02-10] MEDS: METOPROLOL TARTRATE 50MG TABLET PO SCH (08:49)
[2019-02-10] MEDS: INSULIN GLARGINE UD 100 UNITS/ML SYR SUBCUT SCH (11:02)
[2019-02-10] MEDS ORDERED: METO-293 MT (11:33)
[2019-02-10] MEDS ORDERED: DOCU250C14 MT (11:33)
[2019-02-10] MEDS ORDERED: BISA-81 PO (11:33)
[2019-02-10 12:00] VITALS: BP 125/89
[2019-02-10 14:01] VITALS: BP 125/89
== END 2019-02-10 14:45 | disposition home or self-care (01) | DRG 74 ==
LOC: ER 19:27 → 8WST 02-09 00:50 → ENRESERV 02-09 01:14
PROVIDERS: ADMIT Internal Medicine; ATTEND Internal Medicine
DX: E11.43 Type 2 diabetes mellitus with diabetic autonomic (poly)neuropathy (principal); K31.84 Gastroparesis; I10 Essential (primary) hypertension; F31.9 Bipolar disorder, unspecified; E66.9 Obesity, unspecified; E03.9 Hypothyroidism, unspecified; Z68.26 Body mass index [BMI] 26.0-26.9, adult; Z88.6 Allergy status to analgesic agent; Z91.013 Allergy to seafood; Z79.4 Long term (current) use of insulin; Z79.899 Other long term (current) drug therapy
CPT/HCPCS: 36415; 74021; 80048; 82962; 83036; 99285; C9113; J1815; J2405; J2765; J7030; J8597

== ENCOUNTER 2019-05-28 13:23 | Emergency (ER) | payer MEDICARE, MEDICAID ==
[~2019-05-28] VITALS: Ht 170.2 cm; Wt 88.0 kg
[~2019-05-28 13:23] MED LIST changes: +BISA-81 PO; +DOCU250C14 MT; -INSLIS SUBCUT; -LANTUSUD SUBCUT
[2019-05-28] MEDS ORDERED: DICYCLOMINE 10 MG/5 ML ORAL SYR PO STA (14:09)
[2019-05-28] MEDS ORDERED: MAGNESIUM/ALUMINUM HYDROXIDE/SIMETHICONE 30ML UDC PO STA (14:09)
[2019-05-28] MEDS ORDERED: VISCOUS LIDOCAINE 2% 15 ML UDC PO STA (14:09)
[2019-05-28] MEDS ORDERED: ONDANSETRON 4MG ODT PO STA (14:09)
[2019-05-28 14:59] LABS: BASOPHILS % 0.6 % (0.0-2.0); EOSINOPHILS % 2.5 % (0.0-5.0); HEMATOCRIT. 39.1 % (36.0-48.0); HEMOGLOBIN. 12.8 g/dL (12.0-16.0); MEAN CORPUSCULAR HEMOGLOBIN 30.1 pg (28.0-32.0); MEAN CORPUSCULAR VOLUME 91.8 fL (81.0-99.0); MEAN PLATELET VOLUME 9.7 fl (7.4-10.4); MONOCYTES % 8.5 % (2.0-8.0); NEUTROPHILS % 64.4 % (40.0-76.0); PLATELET 293 x1000/uL (130-400); RED BLOOD CELL COUNT 4.26 mill/uL (4.2-5.4); RED CELL DISTRIBUTION WIDTH 14.5 % (11.6-14.6)
[2019-05-28 15:01] LABS: CHLORIDE 105 mEq/L (98-107)
[2019-05-28 17:21] VITALS: BP 141/91
[2019-05-28 18:01] LABS: CLARITY URINE CLEAR (CLEAR); COLOR URINE YELLOW (YELLOW); KETONES URINE TRACE (NEGATIVE); LEUKOCYTE ESTERASE URINE NEGATIVE (NEGATIVE); NITRITE URINE NEGATIVE (NEGATIVE); OCCULT BLOOD URINE NEGATIVE (NEGATIVE); PROTEIN URINE NEGATIVE (NEGATIVE); SPECIFIC GRAVITY URINE 1.037 (1.005-1.030); UROBILINOGEN URINE 0.2 E.U./dL (0.2-1.0)
== END 2019-05-28 17:22 | disposition home or self-care (01) ==
LOC: ER 13:23
DX: R55 Syncope and collapse (principal)
CPT/HCPCS: 36415; 80053; 81003; 81025; 83690; 85025; 93005; 99284; Q0162

== ENCOUNTER 2019-06-01 10:26 | Emergency (ER) | payer MEDICARE, MEDICAID ==
[~2019-06-01] VITALS: Ht 167.6 cm; Wt 70.0 kg
[2019-06-01 11:36] LABS: BASOPHILS % 0.5 % (0.0-2.0); EOSINOPHILS % 1.5 % (0.0-5.0); HEMOGLOBIN. 13.8 g/dL (12.0-16.0); LYMPHOCYTES % 25.3 % (20.0-50.0); MEAN CORPUSCULAR HEMOGLOBIN 29.7 pg (28.0-32.0); MEAN CORPUSCULAR VOLUME 92.7 fL (81.0-99.0); MEAN PLATELET VOLUME 10.9 fl (7.4-10.4); NEUTROPHILS % 66.7 % (40.0-76.0); PLATELET 281 x1000/uL (130-400); RED BLOOD CELL COUNT 4.63 mill/uL (4.2-5.4); RED CELL DISTRIBUTION WIDTH 14.7 % (11.6-14.6)
[2019-06-01 11:40] LABS: CHLORIDE 105 mEq/L (98-107)
[2019-06-01 11:41] LABS: PROTHROMBIN TIME 10.6 sec (9.6-11.0)
[2019-06-01] MEDS ORDERED: ONDANSETRON HCL 4MG/2ML INJ IV STA (11:46)
[2019-06-01 11:51] LABS: BETA HYDROXYBUTYRATE 0.2 mMol/L (0.0-0.3)
[2019-06-01] MEDS ORDERED: FAMOTIDINE 20MG/2ML VIAL IV ONE (12:00)
[2019-06-01 12:21] LABS: CLARITY URINE CLEAR (CLEAR); COLOR URINE YELLOW (YELLOW); KETONES URINE 2+ (NEGATIVE); LEUKOCYTE ESTERASE URINE NEGATIVE (NEGATIVE); NITRITE URINE NEGATIVE (NEGATIVE); OCCULT BLOOD URINE NEGATIVE (NEGATIVE); PROTEIN URINE NEGATIVE (NEGATIVE); SPECIFIC GRAVITY URINE 1.038 (1.005-1.030); UROBILINOGEN URINE 0.2 E.U./dL (0.2-1.0)
[2019-06-01 13:33] VITALS: BP 145/85
== END 2019-06-01 13:34 | disposition home or self-care (01) ==
LOC: ER 10:26
DX: E11.65 Type 2 diabetes mellitus with hyperglycemia (principal); I10 Essential (primary) hypertension; Z79.4 Long term (current) use of insulin; Z88.5 Allergy status to narcotic agent; Z91.013 Allergy to seafood
CPT/HCPCS: 36415; 71045; 80053; 81003; 82010; 85025; 85610; 93005; 96374; 96375; 99284; J2405; J3490

== ENCOUNTER 2019-06-01 18:46 | Emergency (ER) | payer MEDICARE, MEDICAID ==
[~2019-06-01] VITALS: Ht 165.1 cm; Wt 80.0 kg
[2019-06-01 18:51] VITALS: BP 149/98
== END 2019-06-01 22:00 | disposition left against medical advice (07) ==
LOC: ER 18:46
DX: Z53.21 Procedure and treatment not carried out due to patient leaving prior to being seen by health care provider (principal)

== ENCOUNTER 2019-06-22 22:30 | Emergency (ER) | payer MEDICARE, MEDICAID ==
[~2019-06-22] VITALS: Ht 172.7 cm; Wt 84.0 kg
[2019-06-23 01:30] VITALS: BP 129/92
[2019-06-23] MEDS ORDERED: METOCLOPRAMIDE HCL 10MG/2ML VIAL IV STA (01:53)
[2019-06-23] MEDS ORDERED: SODIUM CHLORIDE 0.9% 1,000 ML IV ONE (01:53)
[2019-06-23] MEDS ORDERED: FAMOTIDINE 20MG/2ML VIAL IV STA (01:53)
[2019-06-23 03:32] LABS: CLARITY URINE CLOUDY (CLEAR); COLOR URINE DARK YELLOW (YELLOW); KETONES URINE 4+ (NEGATIVE); LEUKOCYTE ESTERASE URINE NEGATIVE (NEGATIVE); NITRITE URINE NEGATIVE (NEGATIVE); OCCULT BLOOD URINE NEGATIVE (NEGATIVE); PH URINE 5.5 (4.5-8.0); PROTEIN URINE 2+ (NEGATIVE); SPECIFIC GRAVITY URINE 1.037 (1.005-1.030)
[2019-06-23 03:42] LABS: CHLORIDE 94 mEq/L (98-107)
[2019-06-23 03:44] LABS: BASOPHILS % 0.5 % (0.0-2.0); EOSINOPHILS % 0.4 % (0.0-5.0); HEMOGLOBIN. 17.1 g/dL (12.0-16.0); LYMPHOCYTES % 24.9 % (20.0-50.0); MEAN CORPUSCULAR VOLUME 92.4 fL (81.0-99.0); MEAN PLATELET VOLUME 10.3 fl (7.4-10.4); MONOCYTES % 9.8 % (2.0-8.0); NEUTROPHILS % 64.4 % (40.0-76.0); PLATELET 392 x1000/uL (130-400); RED BLOOD CELL COUNT 5.52 mill/uL (4.2-5.4); RED CELL DISTRIBUTION WIDTH 14.4 % (11.6-14.6)
[2019-06-23 03:52] LABS: BETA HYDROXYBUTYRATE 3.4 mMol/L (0.0-0.3)
== END 2019-06-23 05:28 | disposition home or self-care (01) ==
LOC: ER 22:30
DX: E11.43 Type 2 diabetes mellitus with diabetic autonomic (poly)neuropathy (principal); K31.84 Gastroparesis; R11.2 Nausea with vomiting, unspecified; R53.1 Weakness; R10.13 Epigastric pain; Z79.899 Other long term (current) drug therapy; Z88.5 Allergy status to narcotic agent; Z91.013 Allergy to seafood
CPT/HCPCS: 36415; 80053; 81003; 82010; 83690; 85025; 96361; 96374; 96375; 99284; J2765; J3490; J7030; 99283

== ENCOUNTER 2019-11-29 06:59 | Inpatient (IN) | payer MEDICARE, MEDICAID ==
[~2019-11-29] VITALS: Ht 170.2 cm; Wt 71.2 kg
[2019-11-29] MEDS ORDERED: ONDANSETRON HCL 4MG/2ML INJ IV STA (07:06)
[2019-11-29] MEDS ORDERED: SODIUM CHLORIDE 0.9% 1,000 ML IV ONE (07:06)
[2019-11-29 08:02] LABS: BASOPHILS % 1.1 % (0.0-2.0); EOSINOPHILS % 1.9 % (0.0-5.0); HEMATOCRIT. 38.8 % (36.0-48.0); HEMOGLOBIN. 12.9 g/dL (12.0-16.0); LYMPHOCYTES % 34.9 % (20.0-50.0); MEAN CORPUSCULAR HEMOGLOBIN 30.4 pg (28.0-32.0); MEAN CORPUSCULAR VOLUME 91.4 fL (81.0-99.0); MEAN PLATELET VOLUME 10.2 fl (7.4-10.4); MONOCYTES % 6.8 % (2.0-8.0); NEUTROPHILS % 55.3 % (40.0-76.0); PLATELET 377 x1000/uL (130-400); RED BLOOD CELL COUNT 4.24 mill/uL (4.2-5.4); RED CELL DISTRIBUTION WIDTH 15.2 % (11.6-14.6)
[2019-11-29 08:07] LABS: CHLORIDE 98 mEq/L (98-107)
[2019-11-29 08:10] LABS: PROTHROMBIN TIME 10.6 sec (9.6-11.0)
[2019-11-29 08:34] LABS: HCG SCREEN NEGATIVE
[2019-11-29 09:22] LABS: CLARITY URINE CLOUDY (CLEAR); COLOR URINE YELLOW (YELLOW); KETONES URINE 3+ (NEGATIVE); LEUKOCYTE ESTERASE URINE 1+ (NEGATIVE); NITRITE URINE NEGATIVE (NEGATIVE); OCCULT BLOOD URINE 1+ (NEGATIVE); PH URINE >=9.0 (4.5-8.0); PROTEIN URINE 2+ (NEGATIVE); SPECIFIC GRAVITY URINE 1.023 (1.005-1.030)
[2019-11-29 12:00] VITALS: BP 153/101
[2019-11-29 12:30] VITALS: BP 153/101
[2019-11-29] MEDS ORDERED: OMEP40CA12 MT (13:14)
[2019-11-29] MEDS ORDERED: ACETAMINOPHEN 325MG TABLET PO PRN (13:30)
[2019-11-29] MEDS ORDERED: ONDANSETRON HCL 4MG/2ML INJ IV PRN (13:30)
[2019-11-29] MEDS ORDERED: DEXTROSE 50% WATER 50ML SYRINGE IV PRN (13:30)
[2019-11-29] MEDS ORDERED: AMLODIPINE 10MG TABLET PO SCH (13:30)
[2019-11-29] MEDS ORDERED: BISACODYL 10MG SUPP PR PRN (13:45)
[2019-11-29] MEDS ORDERED: KETOROLAC 30MG/ML VIAL IV PRN (15:45)
[2019-11-29] MEDS ORDERED: HYDRALAZINE 10 MG in SODIUM CHLORIDE 0.9% 49.5 ML IV PRN (15:45)
[2019-11-29 16:00] VITALS: BP 122/86
[2019-11-29] MEDS ORDERED: HYDRALAZINE 20MG/ML VIAL IV NR (16:00)
[2019-11-29] MEDS: BLOOD SUGAR DIAGNOSTIC STRIP TEST SCH ×2 (17:57→20:30)
[2019-11-29] MEDS: METOCLOPRAMIDE HCL 10MG/2ML VIAL IV SCH ×2 (18:04→23:44)
[2019-11-29] MEDS: INSULIN LISPRO 100 UNITS/ML SUBCUT SCH ×2 (18:08→21:31)
[2019-11-29] MEDS ORDERED: SODIUM CHLORIDE 0.9% 1,000 ML IV SCH (19:30)
[2019-11-29 20:00] VITALS: BP 120/82
[2019-11-30] VITALS: BP 142/95
[2019-11-30 04:00] VITALS: BP 136/89
[2019-11-30] MEDS: BLOOD SUGAR DIAGNOSTIC STRIP TEST SCH (06:21)
[2019-11-30] MEDS: METOCLOPRAMIDE HCL 10MG/2ML VIAL IV SCH (06:21)
[2019-11-30] MEDS: INSULIN LISPRO 100 UNITS/ML SUBCUT SCH (06:42)
[2019-11-30 08:00] VITALS: BP 121/80
[2019-11-30] MEDS ORDERED: AMLODIPINE 10MG TABLET PO SCH (09:00)
== END 2019-11-30 10:56 | disposition left against medical advice (07) | DRG 74 ==
LOC: ER 06:59 → EDBEDREQTM 10:20 → EDBEDREQ 10:20 → ENRESERV 11:50 → 6EST 12:33
PROVIDERS: ADMIT Internal Medicine; ATTEND Internal Medicine
DX: E10.43 Type 1 diabetes mellitus with diabetic autonomic (poly)neuropathy (principal); E87.1 Hypo-osmolality and hyponatremia; K31.84 Gastroparesis; I10 Essential (primary) hypertension; F17.210 Nicotine dependence, cigarettes, uncomplicated; Z88.6 Allergy status to analgesic agent; Z91.013 Allergy to seafood; Z79.899 Other long term (current) drug therapy; Z71.6 Tobacco abuse counseling
CPT/HCPCS: 36415; 80053; 81003; 82010; 82962; 84703; 85025; 93005; 99285; J0360; J1815; J1885; J2405; J2765; J7030

== ENCOUNTER 2019-12-21 09:24 | Inpatient (IN) | payer MEDICARE, MEDICAID ==
[~2019-12-21] VITALS: Ht 170.2 cm; Wt 81.2 kg
[~2019-12-21 09:24] MED LIST changes: +OMEP40CA12 MT
[2019-12-21] MEDS ORDERED: insulin (09:40)
[2019-12-21] MEDS ORDERED: ONDANSETRON HCL 4MG/2ML INJ IV STA (09:55)
[2019-12-21] MEDS ORDERED: SODIUM CHLORIDE 0.9% 1,000 ML IV ONE (09:55)
[2019-12-21] MEDS ORDERED: ACETAMINOPHEN 325MG TABLET PO STA (10:09)
[2019-12-21 10:49] LABS: BASOPHILS % 0.9 % (0.0-2.0); EOSINOPHILS % 0.1 % (0.0-5.0); HEMATOCRIT. 41.8 % (36.0-48.0); HEMOGLOBIN. 13.7 g/dL (12.0-16.0); LYMPHOCYTES % 15.5 % (20.0-50.0); MEAN CORPUSCULAR HEMOGLOBIN 30.7 pg (28.0-32.0); MEAN CORPUSCULAR VOLUME 93.8 fL (81.0-99.0); MEAN PLATELET VOLUME 9.7 fl (7.4-10.4); MONOCYTES % 5.5 % (2.0-8.0); PLATELET 485 x1000/uL (130-400); RED BLOOD CELL COUNT 4.46 mill/uL (4.2-5.4); RED CELL DISTRIBUTION WIDTH 16.7 % (11.6-14.6)
[2019-12-21 10:53] LABS: CLARITY URINE CLOUDY (CLEAR); COLOR URINE YELLOW (YELLOW); KETONES URINE 4+ (NEGATIVE); LEUKOCYTE ESTERASE URINE NEGATIVE (NEGATIVE); NITRITE URINE NEGATIVE (NEGATIVE); OCCULT BLOOD URINE NEGATIVE (NEGATIVE); PROTEIN URINE TRACE (NEGATIVE); SPECIFIC GRAVITY URINE 1.038 (1.005-1.030); UROBILINOGEN URINE 0.2 E.U./dL (0.2-1.0)
[2019-12-21 10:56] LABS: CHLORIDE 98 mEq/L (98-107)
[2019-12-21 11:05] LABS: BETA HYDROXYBUTYRATE 7.5 mMol/L (0.0-0.3)
[2019-12-21] MEDS ORDERED: INSULIN REGULAR (HUMULIN R) 300UNITS/3ML SUBCUT ONE (12:15)
[2019-12-21] MEDS ORDERED: CLONIDINE 0.1MG TABLET PO PRN (16:30)
[2019-12-21] MEDS ORDERED: ONDANSETRON HCL 4MG/2ML INJ IV PRN (16:30)
[2019-12-21] MEDS ORDERED: IPRATROPIUM/ALBUTEROL 0.5-3(2.5)MG/3ML NEB HHN PRN (16:30)
[2019-12-21] MEDS ORDERED: DOCUSATE SODIUM 100MG CAPSULE PO PRN (16:30)
[2019-12-21] MEDS ORDERED: ACETAMINOPHEN 325MG TABLET PO PRN ×2 (16:30)
[2019-12-21] MEDS ORDERED: LORAZEPAM 0.5MG TABLET PO PRN (16:30)
[2019-12-21] MEDS ORDERED: HYDROCODONE/ACETAMINOPHEN 5/325MG TABLET PO PRN (16:30)
[2019-12-21] MEDS ORDERED: NORTRIPTYLINE HCL 25MG CAPSULE PO SCH (17:00)
[2019-12-21] MEDS: OMEPRAZOLE 20MG CAPSULE EXTENDED RELEASE PO SCH (18:16)
[2019-12-21] MEDS: METOPROLOL TARTRATE 50MG TABLET PO SCH (18:16)
[2019-12-21] MEDS: METOCLOPRAMIDE HCL 10MG/2ML VIAL IV SCH ×2 (18:17→23:14)
[2019-12-21 18:41] LABS: CHLORIDE 103 mEq/L (98-107)
[2019-12-21] MEDS ORDERED: DEXTROSE 50% WATER 50ML SYRINGE IV PRN (21:45)
[2019-12-21 21:50] VITALS: BP 130/89
[2019-12-21 22:30] VITALS: BP 130/89
[2019-12-21] MEDS ORDERED: BLOOD SUGAR DIAGNOSTIC STRIP TEST SCH (23:00)
[2019-12-21] MEDS ORDERED: INSULIN LISPRO 100 UNITS/ML SUBCUT SCH (23:00)
[2019-12-22] VITALS: BP 121/92
[2019-12-22 04:00] VITALS: BP 137/100
[2019-12-22] MEDS: BLOOD SUGAR DIAGNOSTIC STRIP TEST SCH ×3 (05:20→12:00)
[2019-12-22] MEDS: INSULIN LISPRO 100 UNITS/ML SUBCUT SCH ×3 (05:22→13:05)
[2019-12-22 06:20] LABS: BASOPHILS % 0.4 % (0.0-2.0); EOSINOPHILS % 0.5 % (0.0-5.0); HEMATOCRIT. 42.5 % (36.0-48.0); HEMOGLOBIN. 13.8 g/dL (12.0-16.0); LYMPHOCYTES % 21.8 % (20.0-50.0); MEAN CORPUSCULAR HEMOGLOBIN 30.4 pg (28.0-32.0); MEAN CORPUSCULAR VOLUME 93.7 fL (81.0-99.0); MEAN PLATELET VOLUME 9.9 fl (7.4-10.4); MONOCYTES % 8.2 % (2.0-8.0); NEUTROPHILS % 69.1 % (40.0-76.0); PLATELET 452 x1000/uL (130-400); RED BLOOD CELL COUNT 4.53 mill/uL (4.2-5.4); RED CELL DISTRIBUTION WIDTH 16.6 % (11.6-14.6)
[2019-12-22 06:32] LABS: CHLORIDE 102 mEq/L (98-107)
[2019-12-22] MEDS: OMEPRAZOLE 20MG CAPSULE EXTENDED RELEASE PO SCH (06:56)
[2019-12-22] MEDS: METOCLOPRAMIDE HCL 10MG/2ML VIAL IV SCH ×2 (06:56→12:57)
[2019-12-22] MEDS ORDERED: GABAPENTIN 100MG CAPSULE PO SCH (07:00)
[2019-12-22] MEDS ORDERED: LEVOTHYROXINE SODIUM 75MCG TABLET PO SCH (07:20)
[2019-12-22 08:00] VITALS: BP 118/82
[2019-12-22] MEDS: METOPROLOL TARTRATE 50MG TABLET PO SCH (08:31)
[2019-12-22 12:00] VITALS: BP 108/85
[2019-12-22] MEDS ORDERED: METO-293 MT (13:48)
[2019-12-22] MEDS ORDERED: INSASP SUBCUT (14:07)
[2019-12-22 15:51] VITALS: BP 108/85
[2019-12-22 16:00] VITALS: BP 132/88
[2019-12-22] MEDS ORDERED: FAMOTIDINE 20MG TABLET PO SCH (21:00)
== END 2019-12-22 16:39 | disposition home or self-care (01) | DRG 74 ==
LOC: ER 09:24 → 6EST 12:45 → EDBEDREQ 12:47 → EDBEDREQTM 12:47 → ENRESERV 20:50
PROVIDERS: ADMIT Internal Medicine; ATTEND Internal Medicine
DX: E11.43 Type 2 diabetes mellitus with diabetic autonomic (poly)neuropathy (principal); D72.810 Lymphocytopenia; E03.9 Hypothyroidism, unspecified; E11.65 Type 2 diabetes mellitus with hyperglycemia; F17.200 Nicotine dependence, unspecified, uncomplicated; I10 Essential (primary) hypertension; K31.84 Gastroparesis; Z79.4 Long term (current) use of insulin; Z88.6 Allergy status to analgesic agent; Z91.013 Allergy to seafood; Z79.899 Other long term (current) drug therapy; R82.4 Acetonuria; R81 Glycosuria
CPT/HCPCS: 36415; 71045; 80048; 80053; 81003; 82010; 82962; 83036; 85025; 93005; 99285; J1815; J2405; J2765; J7030

== ENCOUNTER 2020-01-24 15:02 | Inpatient (IN) | payer MEDICARE, MEDICAID ==
[~2020-01-24] VITALS: Ht 170.2 cm; Wt 74.4 kg
[~2020-01-24 15:02] MED LIST changes: -DOCU250C14 MT; -IBUP-2030 PO; +INSASP SUBCUT; -LURA60TA PO; +insulin
[2020-01-24] MEDS ORDERED: SODIUM CHLORIDE 0.9% 1,000 ML IV ONE ×2 (15:21→16:00)
[2020-01-24 15:57] LABS: BASOPHILS % 0.3 % (0.0-2.0); EOSINOPHILS % 0.2 % (0.0-5.0); HEMATOCRIT. 44.3 % (36.0-48.0); HEMOGLOBIN. 14.6 g/dL (12.0-16.0); LYMPHOCYTES % 18.2 % (20.0-50.0); MEAN CORPUSCULAR HEMOGLOBIN 30.5 pg (28.0-32.0); MEAN CORPUSCULAR VOLUME 92.2 fL (81.0-99.0); MEAN PLATELET VOLUME 11.3 fl (7.4-10.4); MONOCYTES % 9.8 % (2.0-8.0); NEUTROPHILS % 71.5 % (40.0-76.0); PLATELET 488 x1000/uL (130-400); RED CELL DISTRIBUTION WIDTH 17.1 % (11.6-14.6)
[2020-01-24] MEDS ORDERED: INSULIN REGULAR (HUMULIN R) 300UNITS/3ML IV ONE ×2 (16:00→17:30)
[2020-01-24 16:09] LABS: KETONES URINE 3+ (NEGATIVE); LEUKOCYTE ESTERASE URINE NEGATIVE (NEGATIVE); NITRITE URINE NEGATIVE (NEGATIVE); OCCULT BLOOD URINE 3+ (NEGATIVE); PROTEIN URINE 1+ (NEGATIVE); SPECIFIC GRAVITY URINE 1.043 (1.005-1.030); UROBILINOGEN URINE 0.2 E.U./dL (0.2-1.0)
[2020-01-24 16:10] LABS: CLARITY URINE CLOUDY (CLEAR); COLOR URINE BLOODY (YELLOW)
[2020-01-24 16:12] LABS: PROTHROMBIN TIME 10.7 sec (9.6-11.0)
[2020-01-24 16:26] LABS: CHLORIDE 97 mEq/L (98-107)
[2020-01-24] MEDS ORDERED: ONDANSETRON HCL 4MG/2ML INJ IV NR (19:00)
[2020-01-24] MEDS ORDERED: CEFTRIAXONE 1 G PREMIX 50 ML IV ONE (19:15)
[2020-01-24 21:30] VITALS: BP 110/64
[2020-01-24 22:00] VITALS: BP 110/64
[2020-01-24] MEDS ORDERED: DEXTROSE 50% WATER 50ML SYRINGE IV PRN ×2 (22:45)
[2020-01-24] MEDS ORDERED: TRAMADOL 50MG TABLET PO PRN (22:45)
[2020-01-24] MEDS: ONDANSETRON HCL 4MG/2ML INJ IV PRN (23:19)
[2020-01-24] MEDS: SODIUM CHLORIDE 0.9% 1,000 ML IV SCH (23:32)
[2020-01-25] VITALS: BP 135/97
[2020-01-25 04:00] VITALS: BP 144/87
[2020-01-25] MEDS: SODIUM CHLORIDE 0.9% 1,000 ML IV SCH ×3 (06:38→22:45)
[2020-01-25] MEDS: BLOOD SUGAR DIAGNOSTIC STRIP TEST SCH ×4 (06:38→21:19)
[2020-01-25] MEDS: LEVOTHYROXINE SODIUM 75MCG TABLET PO SCH (06:45)
[2020-01-25] MEDS: INSULIN LISPRO 100 UNITS/ML SUBCUT SCH ×6 (06:51→21:00)
[2020-01-25] MEDS: ONDANSETRON HCL 4MG/2ML INJ IV PRN ×2 (06:51→17:57)
[2020-01-25] MEDS ORDERED: BLOOD SUGAR DIAGNOSTIC STRIP TEST SCH (07:20)
[2020-01-25] MEDS ORDERED: CEFTRIAXONE 1 G PREMIX 50 ML IV SCH (07:45)
[2020-01-25 07:53] LABS: BASOPHILS % 0.3 % (0.0-2.0); HEMATOCRIT. 39.7 % (36.0-48.0); HEMOGLOBIN. 12.4 g/dL (12.0-16.0); LYMPHOCYTES % 11.8 % (20.0-50.0); MEAN CORPUSCULAR HEMOGLOBIN 29.7 pg (28.0-32.0); MEAN PLATELET VOLUME 10.6 fl (7.4-10.4); MONOCYTES % 6.4 % (2.0-8.0); NEUTROPHILS % 81.5 % (40.0-76.0); PLATELET 399 x1000/uL (130-400); RED BLOOD CELL COUNT 4.18 mill/uL (4.2-5.4); RED CELL DISTRIBUTION WIDTH 16.4 % (11.6-14.6)
[2020-01-25 08:00] VITALS: BP 112/74
[2020-01-25 08:12] LABS: CHLORIDE 100 mEq/L (98-107)
[2020-01-25] MEDS: METOPROLOL TARTRATE 50MG TABLET PO SCH ×2 (08:34→21:24)
[2020-01-25] MEDS: ENOXAPARIN 40MG/0.4ML SYR SUBCUT SCH (08:35)
[2020-01-25] MEDS: CEFTRIAXONE 1,000 MG in DEXTROSE 5% WATER 50 ML IV SCH (10:04)
[2020-01-25] MEDS ORDERED: SODIUM POLYSTYRENE SULFONATE 15 G/60 ML BOT PO NR (11:00)
[2020-01-25 12:00] VITALS: BP 116/82
[2020-01-25 14:30] LABS: *AMPHETAMINES SCREEN URINE NEGATIVE (NEGATIVE); *BARBITURATES SCREEN URINE NEGATIVE (NEGATIVE); *BENZODIAZEPINES SCREEN URINE NEGATIVE (NEGATIVE); *COCAINE SCREEN URINE NEGATIVE (NEGATIVE)
[2020-01-25 14:31] LABS: METHADONE URINE SCREEN NEGATIVE (NEGATIVE); OPIATES URINE SCREEN NEGATIVE (NEGATIVE); PHENCYCLIDINE URINE SCREEN NEGATIVE (NEGATIVE)
[2020-01-25 14:46] LABS: CANNABINOID URINE SCREEN PRESUMTIVE POSITIVE (NEGATIVE)
[2020-01-25 16:00] VITALS: BP 122/85
[2020-01-25 20:00] VITALS: BP 130/93
[2020-01-25] MEDS ORDERED: NORTRIPTYLINE HCL 25MG CAPSULE PO SCH (21:00)
[2020-01-25] MEDS ORDERED: GABAPENTIN 300MG CAPSULE PO SCH (21:00)
[2020-01-25] MEDS ORDERED: INSULIN GLARGINE UD 100 UNITS/ML SYR SUBCUT SCH ×2 (22:00)
[2020-01-26] VITALS: BP 130/93
[2020-01-26 04:00] VITALS: BP 120/82
[2020-01-26] MEDS: SODIUM CHLORIDE 0.9% 1,000 ML IV SCH ×2 (06:12→14:45)
[2020-01-26 06:30] LABS: HEMATOCRIT 36.9 % (36.0-48.0); HEMOGLOBIN 11.8 g/dL (12.0-16.0); MEAN CORPUSCULAR HEMOGLOBIN 30.1 pg (28.0-32.0); MEAN CORPUSCULAR VOLUME 93.8 fL (81.0-99.0); PLATELET 352 x1000/uL (130-400); RED BLOOD CELL COUNT 3.93 mill/uL (4.2-5.4); RED CELL DISTRIBUTION WIDTH 16.4 % (11.6-14.6)
[2020-01-26] MEDS: BLOOD SUGAR DIAGNOSTIC STRIP TEST SCH ×2 (06:37→12:55)
[2020-01-26 06:42] LABS: CHLORIDE 99 mEq/L (98-107)
[2020-01-26] MEDS: LEVOTHYROXINE SODIUM 75MCG TABLET PO SCH (06:49)
[2020-01-26] MEDS: INSULIN LISPRO 100 UNITS/ML SUBCUT SCH ×4 (06:50→13:07)
[2020-01-26 08:00] VITALS: BP 134/88
[2020-01-26] MEDS: METOPROLOL TARTRATE 50MG TABLET PO SCH (09:27)
[2020-01-26] MEDS: ENOXAPARIN 40MG/0.4ML SYR SUBCUT SCH (09:27)
[2020-01-26] MEDS: CEFTRIAXONE 1,000 MG in DEXTROSE 5% WATER 50 ML IV SCH (09:27)
[2020-01-26 12:00] VITALS: BP 124/87
[2020-01-26 16:00] VITALS: BP 114/85
[2020-01-26 17:12] VITALS: BP 124/87
== END 2020-01-26 17:58 | disposition home or self-care (01) | DRG 638 ==
LOC: ER 15:02 → 6WST 19:13 → ENRESERV 19:44
PROVIDERS: ADMIT Internal Medicine; ATTEND Internal Medicine
DX: E11.65 Type 2 diabetes mellitus with hyperglycemia (principal); E87.1 Hypo-osmolality and hyponatremia; E11.69 Type 2 diabetes mellitus with other specified complication; E87.5 Hyperkalemia; K31.9 Disease of stomach and duodenum, unspecified; E86.0 Dehydration; E03.9 Hypothyroidism, unspecified; R00.0 Tachycardia, unspecified; I10 Essential (primary) hypertension; Z79.4 Long term (current) use of insulin; Z79.899 Other long term (current) drug therapy; Z88.5 Allergy status to narcotic agent; Z91.013 Allergy to seafood; E11.43 Type 2 diabetes mellitus with diabetic autonomic (poly)neuropathy; K31.84 Gastroparesis
CPT/HCPCS: 36415; 71045; 76705; 80053; 80305; 81003; 82962; 83036; 83605; 84145; 84460; 84484; 85025; 85027; 93005; 96365; 97162; 99285; J0696; J1650; J1815; J2405; J7030; J7060

== ENCOUNTER 2020-03-05 17:45 | Emergency (ER) | payer MEDICARE, MEDICAID ==
[~2020-03-05] VITALS: Ht 172.7 cm; Wt 65.0 kg
[2020-03-05] MEDS ORDERED: SODIUM CHLORIDE 0.9% 1,000 ML IV ONE (18:30)
[2020-03-05] MEDS ORDERED: METOCLOPRAMIDE HCL 10MG/2ML VIAL IV ONE (19:15)
[2020-03-05] MEDS ORDERED: DIPHENHYDRAMINE 12.5MG/5ML UDC PO ONE (19:15)
[2020-03-05 19:45] LABS: CLARITY URINE TURBID (CLEAR); COLOR URINE DARK YELLOW (YELLOW); KETONES URINE 3+ (NEGATIVE); LEUKOCYTE ESTERASE URINE 2+ (NEGATIVE); NITRITE URINE POSITIVE (NEGATIVE); OCCULT BLOOD URINE 1+ (NEGATIVE); PROTEIN URINE 2+ (NEGATIVE); SPECIFIC GRAVITY URINE 1.034 (1.005-1.030)
[2020-03-05 19:48] LABS: CHLORIDE 102 mEq/L (98-107)
[2020-03-05 19:50] LABS: BASOPHILS % 0.6 % (0.0-2.0); EOSINOPHILS % 0.9 % (0.0-5.0); HEMATOCRIT. 36.4 % (36.0-48.0); HEMOGLOBIN. 11.8 g/dL (12.0-16.0); LYMPHOCYTES % 27.1 % (20.0-50.0); MEAN CORPUSCULAR HEMOGLOBIN 29.3 pg (28.0-32.0); MEAN CORPUSCULAR VOLUME 90.7 fL (81.0-99.0); MEAN PLATELET VOLUME 9.4 fl (7.4-10.4); NEUTROPHILS % 62.4 % (40.0-76.0); PLATELET 508 x1000/uL (130-400); RED BLOOD CELL COUNT 4.02 mill/uL (4.2-5.4)
[2020-03-05 19:53] LABS: ETHANOL BLOOD < 10 mg/dL
[2020-03-05 19:57] LABS: HCG SCREEN NEGATIVE
[2020-03-05 20:36] LABS: *AMPHETAMINES SCREEN URINE NEGATIVE (NEGATIVE)
[2020-03-05 20:37] LABS: *BARBITURATES SCREEN URINE NEGATIVE (NEGATIVE); *BENZODIAZEPINES SCREEN URINE NEGATIVE (NEGATIVE); *COCAINE SCREEN URINE NEGATIVE (NEGATIVE); METHADONE URINE SCREEN NEGATIVE (NEGATIVE); OPIATES URINE SCREEN NEGATIVE (NEGATIVE); PHENCYCLIDINE URINE SCREEN NEGATIVE (NEGATIVE)
[2020-03-05 20:38] LABS: CANNABINOID URINE SCREEN PRESUMTIVE POSITIVE (NEGATIVE)
[2020-03-05] MEDS ORDERED: SULFAMETHOXAZOLE/TRIMETHOPRIM 800/160MG TABLET PO NR (22:15)
[2020-03-05 23:20] VITALS: BP 129/69
== END 2020-03-05 23:00 | disposition home or self-care (01) ==
LOC: ER 17:45
DX: N12 Tubulo-interstitial nephritis, not specified as acute or chronic (principal); K31.84 Gastroparesis; I10 Essential (primary) hypertension
CPT/HCPCS: 36415; 80053; 80305; 80320; 81003; 81025; 83690; 84703; 85025; 85610; 87077; 87086; 87186; 96361; 96374; 99283; J2765; J7030; Q0163; G0480

== ENCOUNTER 2020-03-06 02:07 | Emergency (ER) | payer MEDICARE, MEDICAID ==
[~2020-03-06] VITALS: Ht 167.6 cm; Wt 68.0 kg
[2020-03-06] MEDS ORDERED: KETOROLAC 30MG/ML VIAL IV STA (02:31)
[2020-03-06] MEDS ORDERED: ONDANSETRON HCL 4MG/2ML INJ IV STA (02:31)
[2020-03-06] MEDS ORDERED: SODIUM CHLORIDE 0.9% 1,000 ML IV ONE (02:45)
[2020-03-06] MEDS ORDERED: CEFTRIAXONE 1 G PREMIX 50 ML IV ONE (02:45)
[2020-03-06 02:59] LABS: BASOPHILS % 0.8 % (0.0-2.0); EOSINOPHILS % 0.6 % (0.0-5.0); HEMATOCRIT. 34.5 % (36.0-48.0); HEMOGLOBIN. 11.5 g/dL (12.0-16.0); LYMPHOCYTES % 26.5 % (20.0-50.0); MEAN CORPUSCULAR VOLUME 90.4 fL (81.0-99.0); MEAN PLATELET VOLUME 8.9 fl (7.4-10.4); MONOCYTES % 8.8 % (2.0-8.0); NEUTROPHILS % 63.3 % (40.0-76.0); PLATELET 471 x1000/uL (130-400); RED BLOOD CELL COUNT 3.82 mill/uL (4.2-5.4); RED CELL DISTRIBUTION WIDTH 16.6 % (11.6-14.6)
[2020-03-06 03:00] LABS: CHLORIDE 100 mEq/L (98-107)
[2020-03-06 03:11] LABS: HCG SCREEN NEGATIVE
[2020-03-06] MEDS ORDERED: CEFTRIAXONE SODIUM 1 G/VIAL IM ONE (06:00)
[2020-03-06 08:40] VITALS: BP 130/86
[2020-03-12] MEDS ORDERED: GABA-529 MT (18:05)
[2020-03-12] MEDS ORDERED: LISI10TA5 PO (19:44)
[2020-03-12] MEDS ORDERED: ARIP2TAB3 MT (19:44)
[2020-03-13] MEDS ORDERED: LANTUSUD SUBCUT (15:01)
== END 2020-03-06 08:38 | disposition home or self-care (01) ==
LOC: ER 02:07
DX: N10 Acute pyelonephritis (principal); N30.00 Acute cystitis without hematuria; E11.9 Type 2 diabetes mellitus without complications; I10 Essential (primary) hypertension; F12.10 Cannabis abuse, uncomplicated; Z79.899 Other long term (current) drug therapy; Z88.5 Allergy status to narcotic agent
CPT/HCPCS: 36415; 74176; 80053; 84703; 85025; 93005; 96361; 96374; 96375; 99285; J1885; J2405; J7030

== ENCOUNTER 2020-03-11 02:44 | Emergency (ER) | payer OTHER ==
[~2020-03-11] VITALS: Ht 167.6 cm; Wt 66.0 kg
[2020-03-11] MEDS ORDERED: ONDANSETRON HCL 4MG/2ML INJ IV STA (03:13)
[2020-03-11 03:57] LABS: BASOPHILS % 0.7 % (0.0-2.0); EOSINOPHILS % 1.7 % (0.0-5.0); HEMATOCRIT. 39.3 % (36.0-48.0); HEMOGLOBIN. 12.4 g/dL (12.0-16.0); LYMPHOCYTES % 32.6 % (20.0-50.0); MEAN CORPUSCULAR HEMOGLOBIN 29.3 pg (28.0-32.0); MEAN CORPUSCULAR VOLUME 92.4 fL (81.0-99.0); MONOCYTES % 12.8 % (2.0-8.0); NEUTROPHILS % 52.2 % (40.0-76.0); PLATELET 401 x1000/uL (130-400); RED BLOOD CELL COUNT 4.25 mill/uL (4.2-5.4); RED CELL DISTRIBUTION WIDTH 16.7 % (11.6-14.6)
[2020-03-11 04:03] LABS: CHLORIDE 95 mEq/L (98-107)
[2020-03-11 04:07] LABS: ETHANOL BLOOD < 10 mg/dL
[2020-03-11 04:08] LABS: D-DIMER 0.22 mg/L FEU (<0.50); INR 1.1; PROTHROMBIN TIME 11.5 sec (9.6-11.0)
[2020-03-11 04:13] LABS: BETA HYDROXYBUTYRATE 3.6 mMol/L (0.0-0.3)
[2020-03-11 04:14] LABS: C REACTIVE PROTEIN QUANT 2.9 mg/L (0.0-3.0)
[2020-03-11] MEDS: KETOROLAC 15MG/ML VIAL IV NR ×2 (04:30→05:29)
[2020-03-11] MEDS: HALOPERIDOL LACTATE 5MG/ML VIAL IM NR ×2 (04:30→05:29)
[2020-03-11] MEDS ORDERED: SODIUM CHLORIDE 0.9% 1000ML BAG (SEPSIS BOLUS) IV NR (04:30)
[2020-03-11 05:06] LABS: CLARITY URINE TURBID (CLEAR); COLOR URINE YELLOW (YELLOW); KETONES URINE 4+ (NEGATIVE); LEUKOCYTE ESTERASE URINE 2+ (NEGATIVE); NITRITE URINE NEGATIVE (NEGATIVE); OCCULT BLOOD URINE 1+ (NEGATIVE); PH URINE 5.5 (4.5-8.0); PROTEIN URINE 1+ (NEGATIVE); SPECIFIC GRAVITY URINE 1.038 (1.005-1.030); UROBILINOGEN URINE 0.2 E.U./dL (0.2-1.0)
[2020-03-11 05:20] LABS: *AMPHETAMINES SCREEN URINE NEGATIVE (NEGATIVE); *BARBITURATES SCREEN URINE NEGATIVE (NEGATIVE)
[2020-03-11 05:21] LABS: *BENZODIAZEPINES SCREEN URINE NEGATIVE (NEGATIVE); *COCAINE SCREEN URINE NEGATIVE (NEGATIVE); METHADONE URINE SCREEN NEGATIVE (NEGATIVE); OPIATES URINE SCREEN NEGATIVE (NEGATIVE); PHENCYCLIDINE URINE SCREEN NEGATIVE (NEGATIVE)
[2020-03-11 05:25] LABS: CANNABINOID URINE SCREEN PRESUMTIVE POSITIVE (NEGATIVE)
[2020-03-11 05:49] VITALS: BP 140/115
[2020-03-12] MEDS ORDERED: GABA-529 MT (18:05)
[2020-03-12] MEDS ORDERED: LISI10TA5 PO (19:44)
[2020-03-12] MEDS ORDERED: ARIP2TAB3 MT (19:44)
[2020-03-13] MEDS ORDERED: LANTUSUD SUBCUT (15:01)
== END 2020-03-11 05:59 | disposition home or self-care (01) ==
LOC: ER 02:44 → CANBEDREQ 16:04
DX: R11.2 Nausea with vomiting, unspecified (principal); F17.200 Nicotine dependence, unspecified, uncomplicated; E10.8 Type 1 diabetes mellitus with unspecified complications; I10 Essential (primary) hypertension; E88.89 Other specified metabolic disorders; Z20.828 Contact with and (suspected) exposure to other viral communicable diseases; Z88.6 Allergy status to analgesic agent; Z91.013 Allergy to seafood; Z79.899 Other long term (current) drug therapy
CPT/HCPCS: 36415; 71045; 80053; 80305; 80320; 81003; 82010; 82962; 83605; 83615; 84145; 84484; 85025; 85379; 85384; 85610; 86140; 87040; 87077; 87086; 87186; 87635; 93005; 96374; 99285; C9803; J1630; J1885; J2405; G0480

== ENCOUNTER 2020-03-31 12:29 | Emergency (ER) | payer OTHER ==
[~2020-03-31] VITALS: Ht 165.1 cm; Wt 60.0 kg
[~2020-03-31 12:29] MED LIST changes: +ARIP2TAB3 MT; +GABA-529 MT; -GABA-529 PO; +LANTUSUD SUBCUT; +LISI10TA5 PO
[2020-03-31] MEDS ORDERED: SODIUM CHLORIDE 0.9% 1,000 ML IV ONE ×2 (12:45→15:15)
[2020-03-31 13:13] LABS: BASOPHILS % 0.4 % (0.0-2.0); EOSINOPHILS % 0.3 % (0.0-5.0); HEMATOCRIT. 37.1 % (36.0-48.0); HEMOGLOBIN. 11.8 g/dL (12.0-16.0); LYMPHOCYTES % 21.2 % (20.0-50.0); MEAN CORPUSCULAR HEMOGLOBIN 28.5 pg (28.0-32.0); MEAN CORPUSCULAR VOLUME 89.5 fL (81.0-99.0); MEAN PLATELET VOLUME 9.4 fl (7.4-10.4); MONOCYTES % 6.3 % (2.0-8.0); NEUTROPHILS % 71.8 % (40.0-76.0); PLATELET 367 x1000/uL (130-400); RED BLOOD CELL COUNT 4.15 mill/uL (4.2-5.4); RED CELL DISTRIBUTION WIDTH 17.2 % (11.6-14.6)
[2020-03-31 13:22] LABS: CHLORIDE 98 mEq/L (98-107)
[2020-03-31 13:23] LABS: INR 1.1; PROTHROMBIN TIME 11.1 sec (9.6-11.0)
[2020-03-31 13:28] LABS: PHOSPHORUS 2.8 mg/dL (2.5-4.9)
[2020-03-31 14:15] LABS: BG BASE EXCESS 1.3 mmol/L (-2.0-2.0); BG CARBOXYHEMOGLOBIN 4.5 % (0.5-1.5); BG DEOXYHEMOGLOBIN 2.9 % (0.0-5.0); BG FRACTION INSPIRED OXYGEN 21; BG HCO3 ACT 25.6 mmol/L (22.0-26.0); BG METHEMOGLOBIN 0.3 % (0.0-1.5); BG OXYHEMOGLOBIN 92.3 % (94.0-97.0); BG PCO2 39.8 mmHg (35.0-45.0); BG PH 7.427 (7.350-7.450); BG PO2 92.1 mmHg (75.0-100.0); BG SAMPLE SITE RIGHT RADIAL; BG TOTAL HEMOGLOBIN 11.5 g/dL (12.0-18.0); BG VENT MODE ROOM AIR
[2020-03-31 14:37] LABS: CLARITY URINE CLEAR (CLEAR); COLOR URINE YELLOW (YELLOW); KETONES URINE 4+ (NEGATIVE); LEUKOCYTE ESTERASE URINE NEGATIVE (NEGATIVE); NITRITE URINE NEGATIVE (NEGATIVE); OCCULT BLOOD URINE NEGATIVE (NEGATIVE); PROTEIN URINE NEGATIVE (NEGATIVE); SPECIFIC GRAVITY URINE 1.039 (1.005-1.030); UROBILINOGEN URINE 0.2 E.U./dL (0.2-1.0)
[2020-03-31] MEDS ORDERED: ONDANSETRON HCL 4MG/2ML INJ IV ONE ×2 (15:15→17:00)
[2020-03-31] MEDS ORDERED: IOHEXOL-300 100 ML BOTTLE ONE (16:51)
[2020-03-31 17:31] VITALS: BP 127/89
== END 2020-03-31 18:01 | disposition home or self-care (01) ==
LOC: ER 12:29
DX: E11.65 Type 2 diabetes mellitus with hyperglycemia (principal); I10 Essential (primary) hypertension; R10.9 Unspecified abdominal pain; R11.2 Nausea with vomiting, unspecified; Z88.5 Allergy status to narcotic agent; Z91.013 Allergy to seafood; Z79.899 Other long term (current) drug therapy; Z79.4 Long term (current) use of insulin
CPT/HCPCS: 36415; 36600; 74177; 80053; 81003; 82375; 82805; 82962; 83690; 83735; 84100; 84443; 85025; 85610; 93005; 96361; 96374; 96376; 99285; J2405; J7030; Q9967

== ENCOUNTER 2020-04-07 09:14 | Emergency (ER) | payer OTHER ==
[~2020-04-07] VITALS: Ht 167.6 cm; Wt 65.0 kg
[2020-04-07] MEDS ORDERED: VISCOUS LIDOCAINE 2% 15 ML UDC PO STA (10:29)
[2020-04-07] MEDS ORDERED: MAGNESIUM/ALUMINUM HYDROXIDE/SIMETHICONE 30ML UDC PO STA (10:29)
[2020-04-07 11:04] LABS: BASOPHILS % 0.7 % (0.0-2.0); EOSINOPHILS % 2.1 % (0.0-5.0); HEMATOCRIT. 35.2 % (36.0-48.0); HEMOGLOBIN. 11.4 g/dL (12.0-16.0); LYMPHOCYTES % 33.8 % (20.0-50.0); MEAN CORPUSCULAR HEMOGLOBIN 28.5 pg (28.0-32.0); MEAN CORPUSCULAR VOLUME 88.1 fL (81.0-99.0); MONOCYTES % 7.8 % (2.0-8.0); NEUTROPHILS % 55.6 % (40.0-76.0); PLATELET 333 x1000/uL (130-400); RED CELL DISTRIBUTION WIDTH 17.6 % (11.6-14.6)
[2020-04-07 11:08] LABS: CHLORIDE 102 mEq/L (98-107)
[2020-04-07 12:18] VITALS: BP 152/97
== END 2020-04-07 12:20 | disposition home or self-care (01) ==
LOC: ER 09:19
DX: R07.89 Other chest pain (principal); E11.65 Type 2 diabetes mellitus with hyperglycemia; I10 Essential (primary) hypertension; E03.9 Hypothyroidism, unspecified; K21.9 Gastro-esophageal reflux disease without esophagitis; D64.9 Anemia, unspecified; Z88.5 Allergy status to narcotic agent; Z91.013 Allergy to seafood; Z79.4 Long term (current) use of insulin; Z79.899 Other long term (current) drug therapy
CPT/HCPCS: 36415; 71045; 80053; 82962; 83880; 84484; 85025; 93005; 99285

== ENCOUNTER 2020-04-26 14:14 | Emergency (ER) | payer MEDICARE, MEDICAID ==
[~2020-04-26] VITALS: Ht 170.2 cm; Wt 71.0 kg
[2020-04-26 17:13] LABS: BASOPHILS % 1.2 % (0.0-2.0); EOSINOPHILS % 2.1 % (0.0-5.0); HEMATOCRIT. 34.1 % (36.0-48.0); HEMOGLOBIN. 10.9 g/dL (12.0-16.0); LYMPHOCYTES % 43.8 % (20.0-50.0); MEAN CORPUSCULAR VOLUME 87.6 fL (81.0-99.0); MEAN PLATELET VOLUME 8.5 fl (7.4-10.4); MONOCYTES % 9.8 % (2.0-8.0); NEUTROPHILS % 43.1 % (40.0-76.0); PLATELET 390 x1000/uL (130-400); RED BLOOD CELL COUNT 3.89 mill/uL (4.2-5.4); RED CELL DISTRIBUTION WIDTH 19.2 % (11.6-14.6)
[2020-04-26 17:19] LABS: CHLORIDE 103 mEq/L (98-107)
[2020-04-26 18:25] VITALS: BP 103/72
== END 2020-04-26 18:30 | disposition home or self-care (01) ==
LOC: ER 14:14
DX: R07.89 Other chest pain (principal); E11.9 Type 2 diabetes mellitus without complications; F17.210 Nicotine dependence, cigarettes, uncomplicated; Z88.5 Allergy status to narcotic agent; Z91.013 Allergy to seafood; Z79.4 Long term (current) use of insulin; Z79.899 Other long term (current) drug therapy
CPT/HCPCS: 36415; 71045; 80053; 82962; 83880; 84484; 85025; 99284

== ENCOUNTER 2020-05-14 10:48 | Emergency (ER) | payer MEDICARE, MEDICAID ==
[~2020-05-14] VITALS: Ht 170.2 cm; Wt 64.0 kg
[2020-05-14 12:33] LABS: BASOPHILS % 0.8 % (0.0-2.0); EOSINOPHILS % 1.9 % (0.0-5.0); HEMATOCRIT. 31.4 % (36.0-48.0); HEMOGLOBIN. 9.8 g/dL (12.0-16.0); LYMPHOCYTES % 37.1 % (20.0-50.0); MEAN CORPUSCULAR HEMOGLOBIN 27.2 pg (28.0-32.0); MEAN CORPUSCULAR VOLUME 87.6 fL (81.0-99.0); MEAN PLATELET VOLUME 8.8 fl (7.4-10.4); MONOCYTES % 6.7 % (2.0-8.0); NEUTROPHILS % 53.5 % (40.0-76.0); PLATELET 335 x1000/uL (130-400); RED BLOOD CELL COUNT 3.59 mill/uL (4.2-5.4); RED CELL DISTRIBUTION WIDTH 19.6 % (11.6-14.6)
[2020-05-14 12:39] LABS: CHLORIDE 106 mEq/L (98-107)
[2020-05-14 12:54] LABS: PROTHROMBIN TIME 10.3 sec (9.6-11.0)
[2020-05-14 12:58] LABS: CLARITY URINE CLEAR (CLEAR); COLOR URINE YELLOW (YELLOW); KETONES URINE NEGATIVE (NEGATIVE); LEUKOCYTE ESTERASE URINE NEGATIVE (NEGATIVE); NITRITE URINE NEGATIVE (NEGATIVE); OCCULT BLOOD URINE 2+ (NEGATIVE); PH URINE 6.5 (4.5-8.0); PROTEIN URINE NEGATIVE (NEGATIVE)
[2020-05-14 14:09] VITALS: BP 119/74
== END 2020-05-14 14:15 | disposition home or self-care (01) ==
LOC: ER 11:21
DX: E11.649 Type 2 diabetes mellitus with hypoglycemia without coma (principal); Z79.4 Long term (current) use of insulin; I10 Essential (primary) hypertension; E05.90 Thyrotoxicosis, unspecified without thyrotoxic crisis or storm; Z79.899 Other long term (current) drug therapy
CPT/HCPCS: 36415; 80053; 81003; 82962; 85025; 99283

== ENCOUNTER 2020-06-23 18:58 | Emergency (ER) | payer MEDICARE, MEDICAID ==
[~2020-06-23] VITALS: Ht 170.2 cm; Wt 78.0 kg
[~2020-06-23 18:58] MED LIST changes: +LISI10TA26 PO; -LISI10TA5 PO
[2020-06-23 19:39] VITALS: BP 105/78
== END 2020-06-23 20:56 | disposition home or self-care (01) ==
LOC: ER 18:58
DX: E11.649 Type 2 diabetes mellitus with hypoglycemia without coma (principal); R03.0 Elevated blood-pressure reading, without diagnosis of hypertension
CPT/HCPCS: 82962; 99281; 99282

== ENCOUNTER 2021-03-07 19:34 | Emergency (ER) | payer MEDICARE, OTHER ==
[~2021-03-07] VITALS: Ht 170.2 cm; Wt 98.0 kg
[~2021-03-07 19:34] MED LIST changes: -OMEP40CA12 MT; +OMEP40CA20 MT
[2021-03-07 21:26] VITALS: BP 121/84
[2021-03-07] MEDS ORDERED: SODIUM CHLORIDE 0.9% 1,000 ML IV ONE (21:30)
[2021-03-07 22:02] LABS: CHLORIDE 103 mEq/L (98-107)
[2021-03-07 22:10] LABS: CLARITY URINE CLEAR (CLEAR); COLOR URINE YELLOW (YELLOW); KETONES URINE NEGATIVE (NEGATIVE); LEUKOCYTE ESTERASE URINE NEGATIVE (NEGATIVE); NITRITE URINE NEGATIVE (NEGATIVE); OCCULT BLOOD URINE NEGATIVE (NEGATIVE); PH URINE 5.5 (4.5-8.0); PROTEIN URINE NEGATIVE (NEGATIVE); SPECIFIC GRAVITY URINE 1.043 (1.005-1.030); UROBILINOGEN URINE 0.2 E.U./dL (0.2-1.0)
== END 2021-03-07 22:45 | disposition home or self-care (01) ==
LOC: ER 19:34
DX: E11.65 Type 2 diabetes mellitus with hyperglycemia (principal); I10 Essential (primary) hypertension; Z91.013 Allergy to seafood; Z88.5 Allergy status to narcotic agent; Z79.899 Other long term (current) drug therapy; Z79.4 Long term (current) use of insulin; Z86.39 Personal history of other endocrine, nutritional and metabolic disease
CPT/HCPCS: 36415; 80053; 81003; 81025; 82962; 83690; 96360; 99283; J7030

== ENCOUNTER 2023-07-30 14:24 | Emergency (ER) | payer BC, MEDICAID ==
[~2023-07-30] VITALS: Ht 160 cm; Wt 73.0 kg
[2023-07-30 14:31] VITALS: O2SAT 98
[2023-07-30] MEDS: ZIPRASIDONE MESYLATE 20MG/VIAL IM ONE (16:45)
[2023-07-30 17:32] LABS: BASOPHILS % 0.5 % (0.0-2.0); EOSINOPHILS % 1.2 % (0.0-5.0); HEMATOCRIT. 37.7 % (36.0-48.0); HEMOGLOBIN. 12.4 g/dL (12.0-16.0); MEAN CORPUSCULAR HEMOGLOBIN 31.1 pg (28.0-32.0); MEAN CORPUSCULAR HGB CONC 32.7 g/dL (31.0-37.0); MEAN CORPUSCULAR VOLUME 95.1 fL (81.0-99.0); MONOCYTES % 10.2 % (2.0-8.0); NEUTROPHILS % 70.1 % (40.0-76.0); PLATELET 309 x1000/uL (130-400); RED BLOOD CELL COUNT 3.97 mill/uL (4.2-5.4); RED CELL DISTRIBUTION WIDTH 12.8 % (11.6-14.6); WHITE BLOOD COUNT 6.7 x1000/uL (4.5-11.0)
[2023-07-30 17:53] LABS: ACETAMINOPHEN < 2 ug/mL (10-30); ALANINE AMINOTRANSFERASE 15 IU/L (10-49); ALBUMIN 4.3 g/dL (3.2-4.8); ASPARTATE AMINOTRANSFERASE 22 IU/L (<34); BILIRUBIN TOTAL 0.6 mg/dL (0.1-1.0); CALCIUM 9.3 mg/dL (8.7-10.4); CARBON DIOXIDE 24 mEq/L (21-32); CHLORIDE 103 mEq/L (98-107); GLUCOSE 299 mg/dL (70-105); POTASSIUM 3.7 mEq/L (3.5-5.1); PROTEIN TOTAL 7.7 g/dL (6.0-8.3); SODIUM 136 mEq/L (136-145); THYROID STIMULATING HORMONE 6.28 uIU/mL (0.55-4.78); UREA NITROGEN BLOOD 7 mg/dL (9-23)
[2023-07-30 17:58] LABS: ETHANOL BLOOD < 10 mg/dL (<10)
[2023-07-30] MEDS: LEVOTHYROXINE SODIUM 75MCG TABLET PO NR (22:49)
[2023-07-31 09:59] LABS: CLARITY URINE CLOUDY (CLEAR); COLOR URINE ORANGE (YELLOW); GLUCOSE URINE 2+ (NEGATIVE); KETONES URINE TRACE (NEGATIVE); LEUKOCYTE ESTERASE URINE 1+ (NEGATIVE); NITRITE URINE NEGATIVE (NEGATIVE); OCCULT BLOOD URINE 3+ (NEGATIVE); PH URINE 6.5 (4.5-8.0); PROTEIN URINE 1+ (NEGATIVE)
[2023-07-31 10:10] LABS: RBC URINE TNTC /hpf (0-2); SQUAMOUS EPITHELIAL CELL URINE 2+ /lpf (RARE/1+)
[2023-07-31 10:12] LABS: BACTERIA URINE TRACE; WBC URINE 0-2 /hpf (0-2)
[2023-07-31 11:17] LABS: *AMPHETAMINES SCREEN URINE NEGATIVE (NEGATIVE); *BARBITURATES SCREEN URINE NEGATIVE (NEGATIVE); *BENZODIAZEPINES SCREEN URINE NEGATIVE (NEGATIVE); *COCAINE SCREEN URINE NEGATIVE (NEGATIVE); CANNABINOID URINE SCREEN PRESUMPTIVE POSITIVE (NEGATIVE); ECSTASY MDMA SCREEN URINE NEGATIVE (NEGATIVE); METHADONE URINE SCREEN Neg (NEGATIVE); OPIATES URINE SCREEN NEGATIVE (NEGATIVE); PHENCYCLIDINE URINE SCREEN NEGATIVE (NEGATIVE)
[2023-07-31] MEDS ORDERED: DEXTROSE 50% WATER 50ML SYRINGE IV PRN (16:45)
[2023-07-31] MEDS: BLOOD SUGAR DIAGNOSTIC STRIP TEST SCH (17:00)
[2023-07-31] MEDS: SODIUM CHLORIDE 0.9% 1,000 ML IV ONE (17:45)
[2023-07-31] MEDS: INSULIN LISPRO 100 UNITS/ML SUBCUT SCH (18:20)
[2023-07-31 19:36] LABS: BETA HYDROXYBUTYRATE 2.6 mMol/L (0.0-0.3); CALCIUM 9.2 mg/dL (8.7-10.4); CARBON DIOXIDE 22 mEq/L (21-32); CHLORIDE 99 mEq/L (98-107); CREATININE 1.1 mg/dL (0.6-1.0); POTASSIUM 4.4 mEq/L (3.5-5.1); SODIUM 131 mEq/L (136-145); UREA NITROGEN BLOOD 15 mg/dL (9-23)
[2023-07-31 19:40] LABS: GLUCOSE 589 mg/dL (70-105)
[2023-07-31] MEDS: INSULIN LISPRO 100 UNITS/ML SUBCUT ONE (22:32)
[2023-07-31] MEDS: OLANZAPINE 10 MG/VIAL IM STA (22:33)
[2023-07-31] MEDS: LORAZEPAM 2MG/ML INJ IM ONE (22:51)
[2023-07-31] MEDS: DIPHENHYDRAMINE 50MG/ML VIAL IM ONE (22:51)
[2023-07-31] MEDS: HALOPERIDOL LACTATE 5MG/ML VIAL IM ONE (22:51)
[2023-08-01 11:21] VITALS: BP 134/77; PULSE 100; RESP 18; TEMP 98
== END 2023-08-01 19:25 ==
LOC: ER 14:24
DX: F29 Unspecified psychosis not due to a substance or known physiological condition (principal); E03.8 Other specified hypothyroidism; E11.9 Type 2 diabetes mellitus without complications; I10 Essential (primary) hypertension; Z88.2 Allergy status to sulfonamides; Z91.013 Allergy to seafood; Z20.822 Contact with and (suspected) exposure to COVID-19
CPT/HCPCS: 80053; 80305; 80048; 81001; 80307; 82010; 80329; 80320; 82962 ×2; 84443; 85025; 36415; 96360; 96372; 99285; 87426; J3486; J1200; J1630; J1815 ×2; J2060; J7030; J3490; G0480

== ENCOUNTER 2024-10-12 21:35 | Inpatient (IN) | payer BC, MEDICAID, MEDICARE ==
[~2024-10-12] VITALS: Ht 165.1 cm; Wt 83.0 kg
[~2024-10-12 21:35] MED LIST changes: +INSU100I28 SQ; +INSU100V43 SQ; -LANTUSUD SUBCUT; -insulin
[2024-10-12 21:39] VITALS: O2SAT 99
[2024-10-12] MEDS: PANTOPRAZOLE SODIUM 40 MG/VIAL IV ONE (22:52)
[2024-10-12] MEDS: ONDANSETRON HCL 4MG/2ML INJ IV STA (22:53)
[2024-10-12] MEDS: MORPHINE SULFATE 4 MG/ML INJ (FOR IV/IM USE) IV STA (22:53)
[2024-10-12] MEDS: SODIUM CHLORIDE 0.9% 1,000 ML IV ONE (22:54)
[2024-10-12 22:57] LABS: BASOPHILS % 0.7 % (0.0-2.0); EOSINOPHILS % 0.1 % (0.0-5.0); HEMATOCRIT. 40.9 % (36.0-48.0); LYMPHOCYTES % 12.8 % (20.0-50.0); MEAN CORPUSCULAR HEMOGLOBIN 29.3 pg (28.0-32.0); MEAN CORPUSCULAR HGB CONC 31.9 g/dL (31.0-37.0); MEAN CORPUSCULAR VOLUME 91.9 fL (81.0-99.0); MEAN PLATELET VOLUME 10.6 fl (7.4-10.4); MONOCYTES % 6.9 % (2.0-8.0); NEUTROPHILS % 79.5 % (40.0-76.0); PLATELET 397 x1000/uL (130-400); RED BLOOD CELL COUNT 4.45 mill/uL (4.2-5.4); RED CELL DISTRIBUTION WIDTH 16.2 % (11.6-14.6); WHITE BLOOD COUNT 11.9 x1000/uL (4.5-11.0)
[2024-10-12 23:09] LABS: PROTHROMBIN TIME 10.6 sec (9.6-11.0)
[2024-10-12 23:11] LABS: HCG SCREEN NEGATIVE
[2024-10-12 23:13] LABS: CARBON DIOXIDE 18 mEq/L (21-32); CHLORIDE 106 mEq/L (98-107); SODIUM 144 mEq/L (136-145)
[2024-10-12 23:14] LABS: CALCIUM 10.7 mg/dL (8.7-10.4)
[2024-10-12 23:18] LABS: GLUCOSE 285 mg/dL (70-105)
[2024-10-12 23:19] LABS: ETHANOL BLOOD < 10 mg/dL (<10); UREA NITROGEN BLOOD 13 mg/dL (9-23)
[2024-10-12 23:20] LABS: ALANINE AMINOTRANSFERASE 12 IU/L (10-49); ALBUMIN 4.6 g/dL (3.2-4.8); ASPARTATE AMINOTRANSFERASE 16 IU/L (<34); CREATININE 1.4 mg/dL (0.6-1.0)
[2024-10-12 23:21] LABS: BILIRUBIN DIRECT 0.2 mg/dL (<=3.0); BILIRUBIN TOTAL 0.5 mg/dL (0.1-1.0); PROTEIN TOTAL 7.5 g/dL (6.0-8.3)
[2024-10-12 23:38] LABS: BETA HYDROXYBUTYRATE 6.3 mMol/L (0.0-0.3)
[2024-10-12 23:46] LABS: TROPONIN I HIGH SENSITIVITY < 4 ng/L (3.0-34)
[2024-10-12 23:55] LABS: LACTIC ACID 2.8 mmol/L (0.4-2.0)
[2024-10-13] VITALS (38 sets, daily range): BP systolic 102–146; BP diastolic 60–108; PULSE 83–115; RESP 9–22; TEMP 36.6–36.9; O2SAT 94–100
[2024-10-13] MEDS ORDERED: DEXTROSE 50% WATER 50ML SYRINGE IV PRN ×2 (01:00→07:45)
[2024-10-13] MEDS ORDERED: INSULIN REGULAR (DRIP) 100 UNITS in SODIUM CHLORIDE 0.9% 99 ML IV SCH (01:00)
[2024-10-13] MEDS ORDERED: BLOOD SUGAR DIAGNOSTIC STRIP TEST PRN ×2 (01:00→07:45)
[2024-10-13] MEDS ORDERED: SODIUM PHOSPHATE 15 MMOL in SODIUM CHLORIDE 0.9% 245 ML IV PRN ×2 (01:00→09:00)
[2024-10-13] MEDS ORDERED: POTASSIUM CHLORIDE 40 MEQ in SODIUM CHLORIDE 0.9% 230 ML IV PRN ×2 (01:00→07:45)
[2024-10-13] MEDS ORDERED: MAGNESIUM 2 G PREMIX 50 ML IV PRN ×2 (01:00→07:45)
[2024-10-13] MEDS ORDERED: DEXT 5%/0.9% NACL 1,000 ML IV SCH (01:00)
[2024-10-13] MEDS ORDERED: KCL 20MEQ/100ML PREMIX 100 ML IV PRN ×2 (01:00→07:45)
[2024-10-13] MEDS: BLOOD SUGAR DIAGNOSTIC STRIP TEST SCH ×3 (01:31→11:15)
[2024-10-13 01:36] LABS: BG BASE EXCESS -11.5 mmol/L (-2.0-3.0); BG CARBOXYHEMOGLOBIN 0.6 % (0.5-1.5); BG DEOXYHEMOGLOBIN 3.4 % (0.0-5.0); BG FRACTION INSPIRED OXYGEN 21; BG HCO3 ACT 13.2 mmol/L (21.0-28.0); BG METHEMOGLOBIN 0.1 % (0.5-1.5); BG OXYGEN SATURATION 96.6 % (94.0-98.0); BG OXYHEMOGLOBIN 95.9 % (94.0-98.0); BG PCO2 27.1 mmHg (32.0-45.0); BG PH 7.307 (7.350-7.450); BG PO2 89.1 mmHg (83.0-108.0); BG TOTAL HEMOGLOBIN 12.6 g/dL (12.0-16.0); BG VENT MODE ROOM AIR
[2024-10-13] MEDS: SODIUM CHLORIDE 0.9% 1,000 ML IV SCH ×2 (01:43→08:59)
[2024-10-13] MEDS: CEFTRIAXONE 2GM/50ML 50 ML IV ONE (01:48)
[2024-10-13] MEDS: SODIUM CHLORIDE 0.9% 1,000 ML IV ONE (01:48)
[2024-10-13] MEDS: INSULIN REGULAR 100U/100ML PMX 100 ML IV SCH ×2 (01:53→10:26)
[2024-10-13 02:26] LABS: CHLORIDE 107 mEq/L (98-107); SODIUM 142 mEq/L (136-145)
[2024-10-13 02:27] LABS: CARBON DIOXIDE 13 mEq/L (21-32)
[2024-10-13 02:34] LABS: PHOSPHORUS 3.5 mg/dL (2.5-4.9)
[2024-10-13] MEDS: DEXT 5%/0.9% NACL 1,000 ML IV SCH (08:00)
[2024-10-13 09:24] LABS: BASOPHILS % 0.7 % (0.0-2.0); EOSINOPHILS % 0.2 % (0.0-5.0); HEMATOCRIT. 37.4 % (36.0-48.0); HEMOGLOBIN. 11.9 g/dL (12.0-16.0); LYMPHOCYTES % 11.3 % (20.0-50.0); MEAN CORPUSCULAR HEMOGLOBIN 28.9 pg (28.0-32.0); MEAN CORPUSCULAR HGB CONC 31.8 g/dL (31.0-37.0); MEAN CORPUSCULAR VOLUME 91.1 fL (81.0-99.0); MEAN PLATELET VOLUME 9.5 fl (7.4-10.4); MONOCYTES % 9.8 % (2.0-8.0); PLATELET 391 x1000/uL (130-400); RED CELL DISTRIBUTION WIDTH 16.4 % (11.6-14.6)
[2024-10-13 09:32] LABS: CHLORIDE 117 mEq/L (98-107); POTASSIUM 3.7 mEq/L (3.5-5.1)
[2024-10-13 09:33] LABS: CALCIUM 9.6 mg/dL (8.7-10.4); CARBON DIOXIDE 22 mEq/L (21-32)
[2024-10-13 09:38] LABS: GLUCOSE 113 mg/dL (70-105); UREA NITROGEN BLOOD 9 mg/dL (9-23)
[2024-10-13 09:40] LABS: PHOSPHORUS 1.2 mg/dL (2.5-4.9)
[2024-10-13 09:50] LABS: SODIUM 150 mEq/L (136-145)
[2024-10-13] MEDS ORDERED: INSULIN GLARGINE 100 UNITS/ML SUBCUT SCH (11:15)
[2024-10-13] MEDS: PIPERACILLIN/TAZO 3.375G/50ML IV SCH (11:21)
[2024-10-13] MEDS: INSULIN GLARGINE 100 UNITS/ML SUBCUT SCH (11:22)
[2024-10-13] MEDS ORDERED: PIPERACILLIN/TAZO 3.375G/50ML 50 ML IV SCH (12:00)
[2024-10-13] MEDS: INSULIN LISPRO 100 UNITS/ML SUBCUT SCH (13:18)
[2024-10-13] MEDS: PANTOPRAZOLE SODIUM 40 MG/VIAL IV SCH (13:18)
[2024-10-13] MEDS: VANCOMYCIN 1.5GM PMX (XELLIA) 300 ML IV SCH (13:18)
[2024-10-13] MEDS: POTASSIUM PHOSPHATE 10 MMOL in DEXT 5% WATER 246.6667 ML IV ONE (13:20)
[2024-10-13 18:20] LABS: CHLORIDE 113 mEq/L (98-107); SODIUM 145 mEq/L (136-145)
[2024-10-13 18:21] LABS: CARBON DIOXIDE 20 mEq/L (21-32)
[2024-10-13 18:22] LABS: CALCIUM 9.6 mg/dL (8.7-10.4)
[2024-10-13 18:26] LABS: CREATININE 1.1 mg/dL (0.6-1.0); GLUCOSE 351 mg/dL (70-105); UREA NITROGEN BLOOD 7 mg/dL (9-23)
[2024-10-13] MEDS: METOCLOPRAMIDE HCL 10MG/2ML VIAL IV SCH (18:56)
[2024-10-14] VITALS (17 sets, daily range): BP systolic 106–171; BP diastolic 69–102; PULSE 62–90; RESP 10–27; TEMP 36.1–36.7; O2SAT 96–100
[2024-10-14 03:26] LABS: CLARITY URINE CLEAR (CLEAR); COLOR URINE YELLOW (YELLOW); GLUCOSE URINE 3+ (NEGATIVE); KETONES URINE 1+ (NEGATIVE); LEUKOCYTE ESTERASE URINE NEGATIVE (NEGATIVE); NITRITE URINE NEGATIVE (NEGATIVE); OCCULT BLOOD URINE NEGATIVE (NEGATIVE); PROTEIN URINE NEGATIVE (NEGATIVE); SPECIFIC GRAVITY URINE 1.023 (1.005-1.030); UROBILINOGEN URINE 0.2 E.U./dL (0.2-1.0)
[2024-10-14 03:33] LABS: *AMPHETAMINES SCREEN URINE NEGATIVE (NEGATIVE)
[2024-10-14 03:34] LABS: *BARBITURATES SCREEN URINE NEGATIVE (NEGATIVE); *BENZODIAZEPINES SCREEN URINE NEGATIVE (NEGATIVE); *COCAINE SCREEN URINE NEGATIVE (NEGATIVE); CANNABINOID URINE SCREEN PRESUMPTIVE POSITIVE (NEGATIVE); ECSTASY MDMA SCREEN URINE NEGATIVE (NEGATIVE); METHADONE URINE SCREEN NEGATIVE (NEGATIVE); OPIATES URINE SCREEN NEGATIVE (NEGATIVE); PHENCYCLIDINE URINE SCREEN NEGATIVE (NEGATIVE)
[2024-10-14 04:26] LABS: BACTERIA URINE NONE SEEN; RBC URINE 0-2 /hpf (0-2); SQUAMOUS EPITHELIAL CELL URINE 1+ /lpf (RARE/1+); WBC URINE NONE SEEN /hpf (0-2); YEAST URINE 1+
[2024-10-14] MEDS: LEVOTHYROXINE SODIUM 75MCG TABLET PO SCH (06:57)
[2024-10-14 10:13] LABS: BASOPHILS % 0.5 % (0.0-2.0); EOSINOPHILS % 0.3 % (0.0-5.0); HEMATOCRIT. 38.7 % (36.0-48.0); LYMPHOCYTES % 17.1 % (20.0-50.0); MEAN CORPUSCULAR HEMOGLOBIN 29.8 pg (28.0-32.0); MEAN CORPUSCULAR HGB CONC 30.9 g/dL (31.0-37.0); MEAN CORPUSCULAR VOLUME 96.5 fL (81.0-99.0); NEUTROPHILS % 75.1 % (40.0-76.0); PLATELET 287 x1000/uL (130-400); RED BLOOD CELL COUNT 4.01 mill/uL (4.2-5.4); RED CELL DISTRIBUTION WIDTH 17.4 % (11.6-14.6)
[2024-10-14 10:33] LABS: CARBON DIOXIDE 20 mEq/L (21-32); CHLORIDE 105 mEq/L (98-107); POTASSIUM 3.6 mEq/L (3.5-5.1); SODIUM 141 mEq/L (136-145)
[2024-10-14 10:35] LABS: CALCIUM 8.9 mg/dL (8.7-10.4)
[2024-10-14 10:39] LABS: UREA NITROGEN BLOOD < 5 mg/dL (9-23)
[2024-10-14] MEDS ORDERED: INSULIN GLARGINE 100 UNITS/ML SUBCUT SCH (10:47)
[2024-10-14 10:54] LABS: GLUCOSE 406 mg/dL (70-105)
[2024-10-14] MEDS: METOPROLOL TARTRATE 50MG TABLET PO SCH (10:54)
[2024-10-14] MEDS: INSULIN LISPRO 100 UNITS/ML SUBCUT SCH (12:30)
[2024-10-14] MEDS ORDERED: VANCOMYCIN 1.25GM/250ML 250 ML IV SCH (15:00)
[2024-10-15] VITALS: BP 131/82; PULSE 65; RESP 17; TEMP 36.4; O2SAT 99
[2024-10-15 04:00] VITALS: BP 136/71; PULSE 72; RESP 17; TEMP 36.4; O2SAT 98
[2024-10-15] MEDS ORDERED: LIDOCAINE HCL 1% 10 MG/ML 10ML VIAL ONE (07:53)
[2024-10-15 08:19] VITALS: BP 152/94; PULSE 76; RESP 18; TEMP 36.6; O2SAT 95
[2024-10-15] MEDS: SENNOSIDES 8.6MG TABLET PO SCH (09:55)
[2024-10-15] MEDS: DOCUSATE SODIUM 100MG CAPSULE PO SCH (09:55)
[2024-10-15] MEDS ORDERED: IOHEXOL-350 100 ML BOTTLE ONE (10:45)
[2024-10-15 12:00] VITALS: BP 154/92; PULSE 19; RESP 19; TEMP 36.5; O2SAT 97
[2024-10-15 12:56] LABS: BASOPHILS % 0.4 % (0.0-2.0); EOSINOPHILS % 0.5 % (0.0-5.0); HEMOGLOBIN. 12.8 g/dL (12.0-16.0); LYMPHOCYTES % 29.3 % (20.0-50.0); MEAN CORPUSCULAR HEMOGLOBIN 29.7 pg (28.0-32.0); MEAN CORPUSCULAR HGB CONC 32.1 g/dL (31.0-37.0); MEAN CORPUSCULAR VOLUME 92.5 fL (81.0-99.0); MEAN PLATELET VOLUME 9.7 fl (7.4-10.4); MONOCYTES % 9.6 % (2.0-8.0); NEUTROPHILS % 60.2 % (40.0-76.0); PLATELET 272 x1000/uL (130-400); RED BLOOD CELL COUNT 4.32 mill/uL (4.2-5.4); RED CELL DISTRIBUTION WIDTH 16.5 % (11.6-14.6); WHITE BLOOD COUNT 5.5 x1000/uL (4.5-11.0)
[2024-10-15 13:24] LABS: CHLORIDE 98 mEq/L (98-107); SODIUM 131 mEq/L (136-145)
[2024-10-15 13:25] LABS: CARBON DIOXIDE 21 mEq/L (21-32)
[2024-10-15 13:26] LABS: CALCIUM 9.3 mg/dL (8.7-10.4)
[2024-10-15 13:30] LABS: CREATININE 0.9 mg/dL (0.6-1.0); GLUCOSE 313 mg/dL (70-105); UREA NITROGEN BLOOD < 5 mg/dL (9-23)
[2024-10-15 16:00] VITALS: BP 139/90; PULSE 82; RESP 19; TEMP 36.6; O2SAT 99
[2024-10-15 20:00] VITALS: BP 122/62; PULSE 86; RESP 17; TEMP 36.8; O2SAT 97
[2024-10-16] VITALS: BP 122/76; PULSE 82; RESP 17; TEMP 36.4; O2SAT 99
[2024-10-16 04:00] VITALS: BP 147/79; PULSE 83; RESP 17; TEMP 36.4; O2SAT 99
[2024-10-16 08:00] VITALS: BP 138/92; PULSE 83; RESP 19; TEMP 36.7; O2SAT 96
[2024-10-16 08:03] LABS: BASOPHILS % 0.2 % (0.0-2.0); EOSINOPHILS % 1.3 % (0.0-5.0); HEMATOCRIT. 33.4 % (36.0-48.0); LYMPHOCYTES % 34.5 % (20.0-50.0); MEAN CORPUSCULAR HEMOGLOBIN 29.5 pg (28.0-32.0); MEAN CORPUSCULAR HGB CONC 32.9 g/dL (31.0-37.0); MEAN CORPUSCULAR VOLUME 89.6 fL (81.0-99.0); MEAN PLATELET VOLUME 9.8 fl (7.4-10.4); MONOCYTES % 11.8 % (2.0-8.0); NEUTROPHILS % 52.2 % (40.0-76.0); PLATELET 242 x1000/uL (130-400); RED BLOOD CELL COUNT 3.73 mill/uL (4.2-5.4); RED CELL DISTRIBUTION WIDTH 15.8 % (11.6-14.6); WHITE BLOOD COUNT 3.7 x1000/uL (4.5-11.0)
[2024-10-16 08:11] LABS: CHLORIDE 101 mEq/L (98-107); POTASSIUM 3.1 mEq/L (3.5-5.1); SODIUM 137 mEq/L (136-145)
[2024-10-16 08:12] LABS: CALCIUM 9.2 mg/dL (8.7-10.4); CARBON DIOXIDE 28 mEq/L (21-32)
[2024-10-16 08:15] LABS: PROTHROMBIN TIME 10.4 sec (9.6-11.0)
[2024-10-16 08:17] LABS: CREATININE 0.8 mg/dL (0.6-1.0); GLUCOSE 295 mg/dL (70-105); UREA NITROGEN BLOOD 7 mg/dL (9-23)
[2024-10-16] MEDS ORDERED: POTASSIUM CHLORIDE 20 MEQ in DEXT 5% WATER 90 ML IV STA (10:09)
[2024-10-16] MEDS: MAGNESIUM/ALUMINUM HYDROXIDE/SIMETHICONE 30ML UDC PO PRN (10:27)
[2024-10-16] MEDS: POTASSIUM CHLORIDE 20MEQ/PACKET PO SCH (10:29)
[2024-10-16 12:00] VITALS: BP 136/87; PULSE 78; RESP 18; TEMP 36.7; O2SAT 98
[2024-10-16] MEDS: KCL 20MEQ/100ML PREMIX 100 ML IV SCH (12:25)
[2024-10-16 13:00] LABS: POTASSIUM 3.8 mEq/L (3.5-5.1)
[2024-10-16] MEDS ORDERED: PROPOFOL 200MG/20ML VIAL IV ONE (14:34)
[2024-10-16] MEDS ORDERED: ONDANSETRON HCL 4MG/2ML INJ IV PRN (15:30)
[2024-10-16 20:00] VITALS: BP 119/82; PULSE 88; RESP 19; TEMP 36; O2SAT 98
[2024-10-17] VITALS: BP 110/80; PULSE 87; RESP 18; TEMP 36.2; O2SAT 96
[2024-10-17 04:00] VITALS: BP 137/78; PULSE 79; RESP 18; TEMP 36; O2SAT 96
[2024-10-17 08:00] VITALS: BP 145/95; PULSE 86; RESP 18; TEMP 36.4; O2SAT 97
[2024-10-17 08:08] LABS: ALPHA FETOPROTEIN TUMOR MARKER 3.2 ng/mL (0.0-6.4); CA 19-9 < 2 U/mL (0-35); CANCER ANTIGEN 125 15.3 U/mL (0.0-38.1); CARCINOEMBRYONIC AG - SEND OUT 2.6 ng/mL (0.0-4.7)
[2024-10-17 12:00] VITALS: BP 140/92; PULSE 75; RESP 18; TEMP 36.7; O2SAT 98
[2024-10-17 16:00] VITALS: BP 155/72; PULSE 18; RESP 18; TEMP 36.5; O2SAT 99
[2024-10-18] MEDS ORDERED: METR-167 MT (19:22)
[2024-10-18] MEDS ORDERED: LEVO750T68 MT (19:22)
== END 2024-10-17 18:30 | disposition home or self-care (01) | DRG 871 ==
LOC: ER 21:35 → CVICU 10-13 00:55 → CMPBEDREQ 10-13 01:10 → ENRESERV 10-13 04:53 → 8WST 10-14 02:26
PROVIDERS: ADMIT Internal Medicine; ATTEND Internal Medicine
PROC: 02HV33Z Insertion of Infusion Device into Superior Vena Cava, Percutaneous Approach (ICD-10-PCS; 2024-10-15)
PROC: B548ZZA Ultrasonography of Superior Vena Cava, Guidance (ICD-10-PCS; 2024-10-15)
PROC: 0DB68ZX Excision of Stomach, Via Natural or Artificial Opening Endoscopic, Diagnostic (ICD-10-PCS; principal; 2024-10-16)
DX: A41.9 Sepsis, unspecified organism (principal); E10.10 Type 1 diabetes mellitus with ketoacidosis without coma; K75.0 Abscess of liver; K22.11 Ulcer of esophagus with bleeding; K29.71 Gastritis, unspecified, with bleeding; N17.9 Acute kidney failure, unspecified; I10 Essential (primary) hypertension; D64.9 Anemia, unspecified; E10.43 Type 1 diabetes mellitus with diabetic autonomic (poly)neuropathy; K31.84 Gastroparesis; D25.9 Leiomyoma of uterus, unspecified; K57.30 Diverticulosis of large intestine without perforation or abscess without bleeding; K59.00 Constipation, unspecified; E03.9 Hypothyroidism, unspecified; Z79.4 Long term (current) use of insulin; Z88.5 Allergy status to narcotic agent; Z91.199 Patient's noncompliance with other medical treatment and regimen due to unspecified reason; Z79.899 Other long term (current) drug therapy
CPT/HCPCS: 36415; 36573; 36600; 71045; 71275; 74176; 76700; 80048; 80051; 80076; 80305; 80320; 81003; 82010; 82105; 82375; 82378; 82805; 82962; 83036; 83605; 83735; 83880; 83930; 84100; 84132; 84145; 84484; 84703; 85025; 86301; 86304; 86850; 86900; 88305; 93005; 93306; 99291; A4606; C1725; J0696; J1815; J2003; J2270; J2405; J2470; J2543; J2704; J2765; J3370; J3480; J3490; J7030; J7040; J7042; J7060; Q9967; G0480

== ENCOUNTER 2025-03-31 18:08 | Inpatient (IN) | payer BC, MEDICAID, MEDICARE ==
[~2025-03-31] VITALS: Ht 170.2 cm; Wt 75.4 kg
[~2025-03-31 18:08] MED LIST changes: -ARIP2TAB3 MT; -BISA-81 PO; +CHOL2000 PO; -GABA-529 MT; -INSU100I28 SQ; +INSU100I28 SUBCUT; +LEVO100T9 PO; -LEVO75TA7 PO; -LISI10TA26 PO; -METO-293 MT; -METO-539 PO; +METO25TA6 PO; -NORT75CA PO; +OLAN-37 PO; +OLAN1TAB PO; -OMEP40CA20 MT; +ROSU5CAP PO
[2025-03-31 18:10] VITALS: O2SAT 98
[2025-03-31] MEDS: SODIUM CHLORIDE 0.9% 1,000 ML IV ONE (18:59)
[2025-03-31] MEDS: ONDANSETRON HCL 4MG/2ML INJ IV ONE (18:59)
[2025-03-31] MEDS: PANTOPRAZOLE SODIUM 40 MG/VIAL IV ONE (18:59)
[2025-03-31] MEDS: CEFTRIAXONE 1GM/50ML 50 ML IV ONE (18:59)
[2025-03-31 19:12] LABS: BASOPHILS % 0.3 % (0.0-2.0); EOSINOPHILS % 0.5 % (0.0-5.0); HEMATOCRIT. 40.2 % (36.0-48.0); HEMOGLOBIN. 12.8 g/dL (12.0-16.0); LYMPHOCYTES % 21.6 % (20.0-50.0); MEAN PLATELET VOLUME 9.7 fl (7.4-10.4); MONOCYTES % 9.7 % (2.0-8.0); NEUTROPHILS % 67.9 % (40.0-76.0); PLATELET 319 x1000/uL (130-400); RED BLOOD CELL COUNT 4.46 mill/uL (4.2-5.4); RED CELL DISTRIBUTION WIDTH 18.0 % (11.6-14.6)
[2025-03-31 19:24] LABS: HCG SCREEN NEGATIVE
[2025-03-31 19:26] LABS: CREATININE 0.8 mg/dL (0.6-1.0)
[2025-03-31 19:27] LABS: PROTEIN TOTAL 7.8 g/dL (6.0-8.3); UREA NITROGEN BLOOD 7 mg/dL (9-23)
[2025-03-31 19:28] LABS: ASPARTATE AMINOTRANSFERASE 14 IU/L (<34); BILIRUBIN DIRECT 0.3 mg/dL (<=3.0); INR 1.0
[2025-03-31 19:29] LABS: BILIRUBIN TOTAL 0.9 mg/dL (0.1-1.0)
[2025-03-31] MEDS: IOHEXOL-350 100 ML BOTTLE ONE (23:15)
[2025-04-01] MEDS: MORPHINE SULFATE 4 MG/ML INJ (FOR IV/IM USE) IV ONE (00:57)
[2025-04-01 05:43] VITALS: BP 156/90; PULSE 78; RESP 13; TEMP 36.696
[2025-04-01 08:00] VITALS: BP 165/107; PULSE 91; RESP 18; TEMP 36.9; O2SAT 98
[2025-04-01] MEDS ORDERED: DEXTROSE 50% WATER 50ML SYRINGE IV PRN (08:15)
[2025-04-01] MEDS: SODIUM CHLORIDE 0.9% 100 ML IV ONE (08:15)
[2025-04-01] MEDS: BLOOD SUGAR DIAGNOSTIC STRIP TEST SCH (08:30)
[2025-04-01] MEDS ORDERED: NALOXONE HCL 0.4MG/ML VIAL IV PRN (08:30)
[2025-04-01] MEDS: INSULIN LISPRO 100 UNITS/ML SUBCUT SCH (08:30)
[2025-04-01] MEDS: MORPHINE SULFATE 2 MG/ML INJ (NOT FOR IM USE) IV PRN (09:39)
[2025-04-01] MEDS: ONDANSETRON HCL 4MG/2ML INJ IV PRN (09:51)
[2025-04-01] MEDS: ENOXAPARIN 40MG/0.4ML SYR SUBCUT SCH (11:11)
[2025-04-01 12:00] VITALS: BP 157/101; PULSE 94; RESP 12; TEMP 36.7; O2SAT 100
[2025-04-01 16:00] VITALS: BP 155/103; PULSE 81; RESP 12; TEMP 36.7; O2SAT 99
[2025-04-01] MEDS: PANTOPRAZOLE SODIUM 40 MG/VIAL IV SCH (16:55)
[2025-04-01] MEDS: HYDRALAZINE 20MG/ML VIAL IV PRN (16:58)
[2025-04-01 19:09] LABS: *AMPHETAMINES SCREEN URINE NEGATIVE (NEGATIVE)
[2025-04-01 19:10] LABS: *BARBITURATES SCREEN URINE NEGATIVE (NEGATIVE); *BENZODIAZEPINES SCREEN URINE NEGATIVE (NEGATIVE); *COCAINE SCREEN URINE NEGATIVE (NEGATIVE); CANNABINOID URINE SCREEN PRESUMPTIVE POSITIVE (NEGATIVE); ECSTASY MDMA SCREEN URINE NEGATIVE (NEGATIVE); METHADONE URINE SCREEN NEGATIVE (NEGATIVE); OPIATES URINE SCREEN PRESUMPTIVE POSITIVE (NEGATIVE); PHENCYCLIDINE URINE SCREEN NEGATIVE (NEGATIVE)
[2025-04-01 20:00] VITALS: PULSE 86; RESP 20; TEMP 36.8; O2SAT 97
[2025-04-02] MEDS ORDERED: DOCUSATE SODIUM 100MG CAPSULE PO SCH (09:00)
[2025-04-02] MEDS ORDERED: SENNOSIDES 8.6MG TABLET PO SCH (09:00)
== END 2025-04-02 05:30 | disposition left against medical advice (07) | DRG 74 ==
LOC: ER 18:08 → 3WST 22:16 → EDBEDREQ 22:22 → EDBEDREQTM 22:22 → ENRESERV 04-01 04:22
PROVIDERS: ADMIT Internal Medicine; ATTEND Internal Medicine
DX: E11.43 Type 2 diabetes mellitus with diabetic autonomic (poly)neuropathy (principal); R11.16 Cannabis hyperemesis syndrome; I10 Essential (primary) hypertension; D18.03 Hemangioma of intra-abdominal structures; K31.84 Gastroparesis; F17.210 Nicotine dependence, cigarettes, uncomplicated; K59.00 Constipation, unspecified; Z88.5 Allergy status to narcotic agent; Z82.49 Family history of ischemic heart disease and other diseases of the circulatory system; Z86.73 Personal history of transient ischemic attack (TIA), and cerebral infarction without residual deficits
CPT/HCPCS: 36415; 71275; 74174; 80048; 80076; 80305; 82962; 83036; 83735; 84703; 85025; 86850; 86900; 93005; 96365; 96375; 99291; J0360; J0696; J1650; J2270; J2405; J2470; J7030; Q9967